=== PATIENT | female | born 1930 | race Caucasian/White ===

== ENCOUNTER 2016-06-30 17:14 | Inpatient (IN) | payer OTHER, MEDICARE ==
[~2016-06-30] VITALS: Ht 162.6 cm; Wt 54.0 kg
[~2016-06-30 17:14] MED LIST: ACEPHEN650 MG PR; ADVAIR DISKUS 21 DSK INH; ADVAIR DISKUS1 UNIT INH; ALBUTEROL SULFAT3 M1 INH; ALMACONE PO; ALPRAZOLAM0.25 MG PO; ALPRAZOLAM0.5 MG PO; AMITRIPTYLINE H50 MG PO; APAP325 MG PO; ATIVAN0.5 MG PO; AUGMENTIN 875 M1 TAB PO; AVELOX400 MG PO; BISACODYL10 MG PR; CALCITONIN NAS; CALCITONIN200 IU/Act PO; CALCIUM + D 6001 TAB PO; CITALOPRAM10 MG PO; CITALOPRAM20 MG PO; CLARITIN10 MG PO; CLOPIDOGREL75 MG PO; DOCUSATE SOD100 MG PO; DUONEB 3 MG/3 ML3 ML INH/SOL; FLEET ENEMA 131 UNIT RC; FLOVENT HF0.044 MG/A INH; FLU VACCINE 0.0.5 ML IM; FLUTICASON0.05 MG/A2 INH; HALDOL 5MG/ML5 MG/ML SC; IMODIUM2 MG PO; LEVOTHYROXIN0.025 M1 PO; LUMIGAN 2.5 ML2.5 M1 OPH; MASON NATURAL325 MG PO; MELATONIN3 MG PO; MILK OF MAGNESI30 ML PO; MORPHINE SUL20 MG/ML PO; MULTIVITAMIN1 TAB PO; PLAVIX 75MG TAB75 MG PO; PREDNISONE 5 MG5 MG PO; PREDNISONE10 MG PO; PREDNISONE5 MG PO; PROAIR HFA0.09 MG/Ac INH; PROTONIX 20MG T20 MG PO; RESOURCE 2.0 2237 ML PO; SENNA LAXATIVE8.6 MG PO; STIOLTO RESPIMA1 SPR INH; THEOPHYLLINE300 M2 PO; THEOPHYLLINE300 MG PO; TRUSOPT 2% OPH; TUDORZA PR400 MCG/Ac INH; VITAMIN D50000 IU PO; XALATAN 0.50 GTT/1 B OPH; ZITHROMAX 500M500 MG PO; [UNRECOGNIZED DRUG - OTHER] NAS
--- NOTE | 2016-06-30 17:24 | ED DYSPNEA/ASTHMA COMPLAINT ---
History of Present Illness General Chief Complaint: Dyspnea (COPD, CHF, Other) Stated Complaint: BIBA SOB Source: old records, EMS, W10 Exam Limitations: no limitations Vital Signs & Intake/Output Vital Signs & Intake/Output Vital Signs Date Time Temp Pulse Resp B/P Pulse O2 O2 Flow FiO2 Ox Delivery Rate 06/30 1756 93 Nasal 2.0L Cannula 06/30 1745 Nasal 2.0L Cannula 06/30 1740 99.6 86 26 132/58 93 Nasal 2.0L Cannula 06/30 1727 91 Nasal 2.0L Cannula Allergies Coded Allergies: aspirin (GI UPSET, NOSEBLEEDS 06/30/16) Reconcile Medications Acetaminophen (Apap) 325 MG TAB 650 MG PO Q4H PRN PAIN/TEMP/>100 (Reported) Acetaminophen (Acephen) 650 MG SUP 1 SUPP W[place] Q4H PRN PAIN/TEMP>/100 (Reported ) Albuterol Sulfate 3 ML NEB 3 ML INH BID COPD (Reported) Albuterol Sulfate/Ipratropiu (Duoneb) 3 MG/3 ML NEB 1 Vial INH/BERTHA Q6H PRN WHEEZE/SOB (Reported) AMOXICILLIN/POTASSIUM CLAV (Augmentin 875-125 Tablet) 875 MG/125 MG TAB 1 TAB PO BID Pneumonia Bisacodyl 10 MG SUP 1 SUPP WY PRN GI (Reported) Calcitonin (Enders) (Fortical) 200 IU/Actuation SPR 1 SPRAY JAE DAILY BONES ( Reported) Citalopram Hydrobromide (Citalopram HBr) 20 MG TAB 1 TAB PO AT BEDTIME depression Clopidogrel Bisulfate (Plavix) 75 MG TAB 1 TAB PO DAILY BLOOD THINNER ( Reported) Docusate Sodium 100 MG SGL 1 CAP PO BID GI (Reported) Dorzolamide HCl 2 % DROPS 1 GTT OPH BID EYE PRESSURE -RIGHT EYE (Reported) ERGOCALCIFEROL (VITAMIN D2) (Vitamin D2) 50,000 IU SGL 50,000 IU PO Q30D VITAMIN D SUPPLEMENT (Reported) Ferrous Sulfate 325 MG TAB 1 TAB PO EOD SUPPLEMENT (Reported) Fleet Enema (Fleet Enema 135 Ml) 1 UNIT LIQ 1 E RC DAILY PRN GI (Reported) FLUTICASONE/SALMETEROL (Advair 250-50 Diskus) 1 DSK DSK 1 PUFF INH BID COPD ( Reported) Latanoprost (Xalatan 0.005% 2.5 Ml) 50 GTT/1 BOT GTT 1 GTT OPH QHS GLAUCOMA ( Reported) Loperamide Hydrochloride (Imodium) 2 MG CAP 2 CAP PO AD PRN LOOSE STOOL ( Reported) Loratadine (Claritin) 10 MG TAB 1 TAB PO DAILY PRN ITCHING (Reported) Lorazepam (Ativan) 0.5 MG TAB 0.25 MG PO Q4H PRN AGITATION (Reported) MAG HYDROX/AL HYDROX/SIMETH (Almacone Liquid) 355 ML ENDER 30 ML PO Q8H PRN HEART BURN/GI PAIN (Reported) Magnesium Hydroxide (Milk Of Magnesia 30ML) 30 ML UDC 30 ML PO DAILY PRN CONSTIPATION (Reported) Melatonin 3 MG TAB 9 MG PO QHS SLEEP (Reported) Nutritional Supplement (Resource 2.0 237 Ml) (Unknown Strength) LIQ 60 ML PO TID AC SUPPLEMENT (Reported) Prednisone 5 MG TAB 0 PO TAPER COPD On Take 06/09 8 tabs 06/10-06/11 6 tabs 06/12-06/13 4 tabs 06/14-06/15 2 tabs Then continue taking 1 tab daily THEOPHYLLINE ANHYDROUS (Theophylline Anhydrous) [address] TAB PO DAILY COPD (Reported) TIOTROPIUM BR/OLODATEROL HCL (Stiolto Respimat Inhal [place]) 1 SPR SPR 2 PUFF INH DAILY COPD (Reported) Triage Nurses Notes Reviewed? yes HPI: Patient sent in from the [place] [facility] for increasing difficulty breathing, coughing and increasing lethargy. Positive anorexia but no nausea or vomiting. Positive chills but no documented fevers. Cough is productive. Patient denies any chest pain. Patient's daughter states that on Friday she was fully active and getting around in a wheelchair and today she can't even get out of bed. Past History Medical History Any Pertinent Medical History? 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 No Review of Systems Review of Systems Constitutional: Reports: see HPI, chills. EENTM: Reports: no symptoms. Respiratory: Reports: see HPI, cough, short of breath, sputum production. Cardiovascular: Reports: no symptoms. GI: Reports: no symptoms. Genitourinary: Reports: no symptoms. Musculoskeletal: Reports: no symptoms. Skin: Reports: no symptoms. Neurological/Psychological: Reports: no symptoms. Hematologic/Endocrine: Reports: no symptoms. Immunologic/Allergic: Reports: no symptoms. All Other Systems: Reviewed and Negative Physical Exam Physical Exam General Appearance: well developed/nourished, alert, awake, lethargic, moderate distress Head: atraumatic, normal appearance Eyes: Bilateral: PERRL, EOMI. Ears, Nose, Throat: normal pharynx, normal ENT inspection, hearing grossly normal Neck: normal inspection, supple, full range of motion, JVD Respiratory: decreased breath sounds, rhonchi, wheezing, respiratory distress Cardiovascular: regular rate/rhythm, normal peripheral pulses Gastrointestinal: normal bowel sounds, soft, non-tender, no organomegaly Extremities: normal inspection, normal capillary refill, normal range of motion, no edema Neurologic/Psych: no motor/sensory deficits, awake, alert, oriented x 3 Skin: intact, normal color Lymphatic: no anterior cervical lucia Core Measures ACS in differential dx? No Severe Sepsis Present: No Septic Shock Present: No Progress Differential Diagnosis: AMI, bronchitis, CHF, COPD, pulmonary embolism, pneumonia, pneumothorax Plan of Care: Orders Procedure Date/time Status LACTIC ACID 06/30 2019 Active ARTERIAL BLOOD GAS (GEN) 06/30 1854 Active Admit to inpatient 06/30 1852 Active Code Status 06/30 1803 Active CULTURE,URINE 06/30 1744 Active URINALYSIS 06/30 174 Complete Telemetry/Ops Manager 06/30 171 Active BLOOD CULTURE 06/30 171 Active TROPONIN LEVEL 06/30 171 Active LACTIC ACID 06/30 171 Active COMPREHENSIVE METABOLIC PANEL 06/30 1718 Active CBC WITHOUT DIFFERENTIAL 06/30 1718 Complete EKG 06/30 1713 Active Current Medications Sig/Teena Start time Last Medication Dose Stop Time Status Admin Albuterol Sulfate 3 ML ONCE ONE 06/30 1899 UNVr (Proventil) 06/30 190 Laboratory Tests 06/30/16 1826: Sodium Pending, Potassium Pending, Chloride Pending, Carbon Dioxide Pending, Anion Gap Pending, BUN Pending, Creatinine Pending, BUN/Creatinine Ratio Pending , Glucose Pending, Lactic Acid 1.3, Calcium Pending, Total Bilirubin Pending, AST Pending, ALT Pending, Alkaline Phosphatase Pending, Troponin I Pending, Total Protein Pending, Albumin Pending, Globulin Pending, Albumin/Globulin Ratio Pending 06/30/161748: Urine Color YEL, Urine Clarity CLDY H, Urine pH 6.5, Ur Specific [place] 1.025, Urine Protein 100 H, Urine Ketones NEG, Urine Nitrite POS H, Urine Bilirubin NEG, Urine Urobilinogen 0.2, Ur Leukocyte Esterase LARGE H, Ur Microscopic SEDIMENT EXAMINED, Urine WBC PACKD H, Urine Hemoglobin MOD H, Urine Glucose NEG 06/30/16 173: CBC w Diff NO MAN DIFF REQ, RBC 3.03 L, MCV 96.4, MCH 31.4 H, RDW 13.7, MPV 6.2 L, Gran % 93.2 H, Lymphocytes % 2.5 L, Monocytes % 4.0, Eosinophils % 0.3 , Basophils % 0 L, Absolute Granulocytes 11.1 H, Absolute Lymphocytes 0.3 L, Absolute Monocytes 0.5, Absolute Eosinophils 0, Absolute Basophils 0, PUBS MCHC 32.6 L 06/30/16 172: pH 7.36, pCO2 73 *H, pO2 58 L, HCO3 40 H, ABG O2 Sat (Measured) 88.0 L, P-50 (Temp Corrected) N, Carboxyhemoglobin 0.7 L, O2 Concentration % 2L, Temperature 98.9, O2 Delivery Method NC, Phlebotomy Draw Site LEFT RADIAL Microbiology 06/30 1748 URINE ROUT: Urine Culture - RECD 06/30 1739 BLOOD: Blood Culture - RECD 06/30 1734 BLOOD: Blood Culture - RECD Diagnostic Imaging: Viewed by Me: Radiology Read. Discussed w/RAD: Radiology Read. Radiology Impression: PATIENT: KOSTASOCTOBER PRESENT AGE: 86 PATIENT ACCOUNT NO: [id number] : [birth year] LOCATION: [facility] ORDERING PHYSICIAN: OMID KNOX MD SERVICE DATE: 06/30/16 EXAM TYPE: RAD - XRY-PORTABLE CHEST XRAY EXAMINATION: XR CHEST PORTABLE CLINICAL INFORMATION: An 86-year-old female with shortness of breath. COMPARISON: Chest done on 2015. TECHNIQUE: Portable AP view of the chest was obtained. FINDINGS: Persistent stable hyperinflated lung field and superimposed nodular nonspecific airspace disease predominantly at left lung base, appears similar to prior study. The remainder of the lung puga appear clear, unchanged. The cardiomediastinal silhouette is within normal limits. There is no pleural effusion present. Overall, no significant change. IMPRESSION: Hyperinflated lung field likely represent COPD/emphysematous disease with nonspecific somewhat nodular interstitial changes predominantly at left lung base, appears stable since 06/06/2015. DICTATED BY: ANTONY LEES MD DATE/TIME DICTATED:06/30/161827 GUARD RAIL INSTALLER:NATALI DATE/TIME TRANSCRIBED:06/30/161827 CONFIDENTIAL, DO NOT COPY WITHOUT APPROPRIATE AUTHORIZATION. <Electronically signed in Other Vendor System> SIGNED BY: ANTONY LEES MD 06/30/161838 Initial ED EKG: SR, IVCD, NSSTT CHANGES Prior EKG: unchanged Rhythm Strip: normal sinus rhythm Departure Departure Disposition: STILL A PATIENT Condition: Stable Clinical Impression Primary Impression: Sepsis due to urinary tract infection Secondary Impressions: COPD exacerbation Referrals: EUNICE TAYLOR,HUMAIRA Broussard (PCP/Family) Departure Forms: Customer Survey General Discharge Information Admission Note Spoke With: MAVERICK HALL MD Documentation of Exam: Documentation of any treatments & extenuating circumstances including Concerns Regarding Discharge (functional status, medication knowledge or non-compliance, living conditions, etc.) that warrant an admission rather than observation: [ Patient is a change from her baseline and is very lethargic. Patient is requiring IV antibiotics and IV fluids. Patient is requiring nebulizers and IV steroids for her COPD exacerbation. Patient will require telemetry monitoring for pulse ox monitoring.] Critical Care Note Critical Care Note Critical Care Time: mins: (45 MIN)
[2016-06-30 17:52] LABS: ABSOLUTE BASOPHIL COUNT 0 /CUMM (0.0-0.2); ABSOLUTE EOSINOPHIL COUNT 0 /CUMM (0.0-0.7); ABSOLUTE GRANULOCYTE CT 11.1 /CUMM (1.4-6.5); ABSOLUTE LYMPH COUNT 0.3 /CUMM (1.2-3.4); ABSOLUTE MONOCYTE COUNT 0.5 /CUMM (0.10-0.60); BASOPHIL % 0 % (0.0-2.0); EOSINOPHIL % 0.3 % (0-5); HEMATOCRIT 29.2 % (37-47); MEAN CORPUSCULAR HGB 31.4 PG (27.0-31.0); MEAN CORPUSCULAR HGB CONC 32.6 G/DL (33.0-37.0); MEAN CORPUSCULAR VOLUME 96.4 FL (81.0-99.0); MEAN PLATELET VOLUME 6.2 FL (7.4-10.4); PLATELET COUNT 305 /CUMM (130-400); RBC DISTRIBUTION WIDTH 13.7 % (11.5-14.5); RED BLOOD CELL CT 3.03 /CUMM (4.20-5.40); WHITE BLOOD CELL COUNT 11.9 /CUMM (4.8-10.8)
--- NOTE | 2016-06-30 17:53 | NUR ---
PT BIBA FROM [facility] FOR SOB. PT REPORTED TO STAFF SOB X WEEKS, STAFF TOLD EMS SOB X HOURS. PT ARRIVES WITH INCREASED WORK OF BREATHING, T[place], 93% ON BASELINE 2L NC OXYGEN. HISTORY OF COPD, LOBULAR PNA. PT ALSO NOTED TO HAVE WET COUGH, +WHEEZING. PT GIVEN 1 DUONEB EN ROUTE.
[2016-06-30 18:00] LABS: GRANULOCYTE % 93.2 % (42.2-75.2)
--- NOTE | 2016-06-30 18:39 | RADIOLOGY REPORT ---
EXAMINATION: XR CHEST PORTABLE CLINICAL INFORMATION: An 86-year-old female with shortness of breath. COMPARISON: Chest done on 06/06/2015. TECHNIQUE: Portable AP view of the chest was obtained. FINDINGS: Persistent stable hyperinflated lung field and superimposed nodular nonspecific airspace disease predominantly at left lung base, appears similar to prior study. The remainder of the lung puga appear clear, unchanged. The cardiomediastinal silhouette is within normal limits. There is no pleural effusion present. Overall, no significant change. IMPRESSION: Hyperinflated lung field likely represent COPD/emphysematous disease with nonspecific somewhat nodular interstitial changes predominantly at left lung base, appears stable since 06/06/2015.
--- NOTE | 2016-06-30 18:39 | NUR ---
PT MEDICATED PER EMAR AT THIS TIME.
--- NOTE | 2016-06-30 19:02 | NUR ---
RESP AT BEDSIDE FOR TREATMENT AT THIS TIME.
--- NOTE | 2016-06-30 19:07 | NUR ---
RECIEVED REPORT FROM KARYN MARQUES. ASSUMED PT CARE AT THIS TIME.
[2016-06-30] MEDS ORDERED: PAIN RELIEF650 MG PO (19:10)
[2016-06-30] MEDS ORDERED: ATIVAN0.5 M1 PO (19:10)
[2016-06-30] MEDS ORDERED: ATIVAN1 M1 PO (19:11)
[2016-06-30] MEDS ORDERED: CELEXA20 M1 PO (19:11)
[2016-06-30] MEDS ORDERED: NARCAN4 MG NAS (19:12)
[2016-06-30] MEDS ORDERED: GABAPENTIN100 M2 PO (19:13)
[2016-06-30] MEDS ORDERED: PREDNISONE5 M1 PO (19:14)
[2016-06-30] MEDS ORDERED: MELATONIN3 M4 PO (19:14)
[2016-06-30] MEDS ORDERED: SENNA8.6 M3 PO (19:15)
[2016-06-30] MEDS ORDERED: COLACE100 M1 PO (19:15)
[2016-06-30] MEDS ORDERED: BREO ELLIPTA 11 EACH INH (19:19)
[2016-06-30] MEDS ORDERED: SALINE NASAL SP30 ML NASB (19:20)
[2016-06-30] MEDS ORDERED: SPIRIVA18 MCG INH (19:20)
[2016-06-30] MEDS ORDERED: IPRAT-ALBUT 0.5-3 ML INH ×2 (19:21→19:28)
[2016-06-30] MEDS ORDERED: CALCITONIN-SAL3.7 ML NAS (19:22)
[2016-06-30] MEDS ORDERED: ACETAMINOPHEN325 M2 PO (19:23)
[2016-06-30] MEDS ORDERED: ACEPHEN650 M1 PR (19:23)
[2016-06-30] MEDS ORDERED: TRAMADOL HCL50 M1 PO (19:24)
[2016-06-30] MEDS ORDERED: DULCOLAX10 M1 RC (19:25)
[2016-06-30] MEDS ORDERED: FLEET ENEMA133 ML RC (19:26)
--- NOTE | 2016-06-30 19:26 | NUR ---
PT'S RM ASSIGNMENT 185 BED 2
[2016-06-30] MEDS ORDERED: MILK OF MA400 MG/52 PO (19:27)
[2016-06-30] MEDS ORDERED: ADULT TUSS100 MG/5 M PO (19:28)
[2016-06-30] MEDS ORDERED: TRANSDERM-SCOP1 EACH TOP (19:29)
[2016-06-30] MEDS ORDERED: TRUSOPT10 ML OD (19:33)
[2016-06-30] MEDS ORDERED: SYSTANE 0.3-0.415 ML OPH (19:38)
[2016-06-30] MEDS ORDERED: LUMIGAN2.5 ML OD (19:38)
--- NOTE | 2016-06-30 19:47 | NUR ---
REPORT GIVEN TO KARYN YE
--- NOTE | 2016-06-30 19:50 | NUR ---
[facility] CALLED FOR TRANSPORT
--- NOTE | 2016-06-30 19:54 | NUR ---
HOUSE STAFF AT BEDSIDE
--- NOTE | 2016-06-30 20:23 | History & Physical ---
FRANC TAYLOR,ROSAMARIA 06/30/162021: General Information and HPI MD Statement: I have seen and personally examined ELLY KENYON and documented this H&P. The patient is a 86 year old F who presented with a patient stated chief complaint of [cough and shortness of breath]. Source of Information: patient, family, old records Exam Limitations: no limitations History of Present Illness: This is an 86-year-old lady with a history of COPD with 2 L home oxygen dependence, ILD, tracheobronchomalacia, depression the lives at assisted living facility and presented to the emergency room the chief complaint of altered mental status, tactile fevers and cough as noted by ECF staff. Her daughter was present at bedside and did provide some of the history. Her daughter over the course of last 3-4 days her mom has been having increased dyspnea, her oxygen requirements have bumped up to 3.5 L whereas her baseline is about 2 L, her mother's roommate has been extremely ill with the "flu" and pneumonia and she noticed that her mom started to experience greenish sputum over the course of last couple of days. Today she was transferred to the ER after she was found to be hypoxic and altered. In the ER she received Mucomyst, IV Solu-Medrol, albuterol treatment with antibiotics with some improvement in her symptoms. At present she denies any chest pain, nausea, vomiting, diarrhea, chills, muscle aches or pains. Allergies/Medications Allergies: Coded Allergies: Penicillins (PER W-10 06/30/16) aspirin (GI UPSET, NOSEBLEEDS 06/30/16) Home Med list Acetaminophen (Pain Relief) 650 MG TABLET.ER 1 TAB PO TID BACK PAIN (Reported ) Acetaminophen (Acephen) 650 MG SUPP.RECT 1 SUPP LA Q4H PRN PAIN/TEMP>101 ( Reported) Acetaminophen 325 MG TABLET 2 TAB PO Q4H PRN PAIN/TEMP>101 (Reported) Bimatoprost (Lumigan) 0.01 % DROPS 1 GTT OD QPM RIGHT EYE (Reported) Bisacodyl (Dulcolax) 10 MG SUPP.RECT 1 SUP RC DAILY PRN CONSTIPATION ( Reported) Calcitonin,[place],Synthetic (Calcitonin-[place]) 200 UNIT/SPRAY SPRAY.PUMP 1 SPRAY JAE DAILY UNKNOWN (Reported) Citalopram Hydrobromide (Celexa) 20 MG TABLET 1 TAB PO QHS MENTAL HEALTH ( Reported) Docusate Sodium (Colace) 100 MG CAPSULE 1 CAP PO DAILY STOOL SOFTENER ( Reported) Dorzolamide HCl (Trusopt) 2 % DROPS 1 DROP OD BID RIGHT EYE (Reported) Fluticasone/Vilanterol (Breo Ellipta 100-25 Mcg INH) 100 MCG-25 MCG/DOSE BLST.W.DEV 1 PUF INH DAILY COPD (Reported) Gabapentin 100 MG CAPSULE 200 MG PO BID LEG SPASMS (Reported) Guaifenesin (Adult Tussin Chest Congestion) (Unknown Strength) LIQUID (Unknown Dose) PO Q6H PRN COUGH (Reported) Ipratropium/Albuterol Sulfate (Iprat-Albut 0.5-3(2.5) MG/3 Ml) 0.5 MG-3 MG (2.5 MG BASE)/3 ML AMPUL.NEB 1 VIAL INH BID COPD (Reported) Ipratropium/Albuterol Sulfate (Iprat-Albut 0.5-3(2.5) MG/3 Ml) 0.5 MG-3 MG (2.5 MG BASE)/3 ML AMPUL.NEB 1 VIAL INH Q4H PRN WHEEZE/SOB RESP. DISTRESS ( Reported) Lorazepam (Ativan) 0.5 MG TABLET 1 TAB PO BID ANXIETY (Reported) Lorazepam (Ativan) 1 MG TABLET 1 TAB PO QHS ANXIETY (Reported) Magnesium Hydroxide (Milk Of Magnesia) 400 MG/5 ML ORAL.SUSP 30 ML PO Q3D PRN CONSTIPATION (Reported) Melatonin 3 MG TABLET 9 MG PO QPM SLEEP (Reported) Na Phos,M-B/Na Phos,Di-Ba (Fleet Enema) 19 GRAM-7 GRAM/118 ML ENEMA 1 E RC DAILY PRN CONSTIPATION (Reported) Naloxone HCl (Narcan) 4 MG/ACTUATION SPRAY 4 MG JAE AD PRN OPIOID INDUCED RESP. DEPRESSIO (Reported) Prednisone 5 MG TABLET 1 TAB PO DAILY STEROID (Reported) Propylene Glycol/Peg 400 (Systane 0.3-0.4% Eye Drops) (Unknown Strength) DROPS (Unknown Dose) OPH TID BOTH EYES (Reported) Scopolamine Hydrobromide (Transderm-Scop) 1.5MG/3DAY PATCH.TD.3 1 PAT TOP Q3D PRN ORAL SECRETIONS (Reported) apply to the hairless area behind 1 ear at least 4 hours before effect is required; reapply every 3 days as needed Sennosides (Senna) 8.6 MG TABLET 2 TAB PO DAILY GI (Reported) Sodium Chloride (Saline Nasal [place]) 0.65 % SPRAY 1 SPRAY NASB BID NASAL CONGESTION (Reported) Tiotropium [place] (Spiriva) 18 MCG CAP.W.DEV 1 CAP INH DAILY COPD (Reported) Tramadol HCl 50 MG TABLET 25 MG PO Q6H PRN PAIN UNRELIEVED BY APAP (Reported) Past History Travel History Traveled to [place] past 21 day No Medical History Neurological: TIA EENT: cataracts, 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 Cardiovascular: NONE Respiratory: COPD, emphysema Gastrointestinal: GERD Hepatic: NONE Renal: NONE Musculoskeletal: fracture, osteoarthritis Psychiatric: anxiety, depression Endocrine: diabetes, hypothyroidism Blood Disorders: NONE Cancer(s): colon/rectal cancer INSTRUMENT MECHANIC/Reproductive: NONE History of MRSA: No History of VRE: No History of CDIFF: No Pneumonia Vaccine: 12/03/04 Influenza Vaccine: 03/09/15 Tetanus Vaccine: 10/15/13 Surgical History Surgical History: colon resection, hysterectomy, TONSILLECTOMY ECHO Results (as available) Date of last Echo 11/16/14 EF% 65 Past Family/Social History Family History Relations & Conditions if any MOTHER FH: diabetes mellitus Psychosocial History Services at Home: Home Health Aide, Nursing ETOH Use: denies use Illicit Drug Use: denies illicit drug use Living Will? yes Power of Planetarium Technician/HCP? yes Name of POA/HCP: daughter Functional Ability ADLs Needs Assist: dressing, eating, toileting, bathing. Ambulation: non-ambulatory IADLs Needs Assist: shopping, housework, finances, food prep, telephone, transportation, medication admin. Review of Systems Review of Systems Constitutional: Reports: see HPI. Exam & Diagnostic Data Last 24 Hrs of Vital Signs/I&O Vital Signs Date Time Temp Pulse Resp B/P Pulse O2 O2 Flow FiO2 Ox Delivery Rate 06/30 1855 Nasal 2.0L Cannula 06/30 1756 93 Nasal 2.0L Cannula 06/30 1745 Nasal 2.0L Cannula 06/30 174 99.6 86 26 132/58 93 Nasal 2.0L Cannula 06/30 1727 91 Nasal 2.0L Cannula Physical Exam General Appearance Alert, Oriented X3, Cooperative, Mild Distress Skin skin tear on right lateral calf with clean dry dressing HEENT PERRLA, EOMI, 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 Cardiovascular Regular Rate, Normal S1, Normal S2 Lungs b/l ronchii Abdomen Normal Bowel Sounds, Soft, No Tenderness Neurological Normal Speech, Strength at 5/5 X4 Ext, Normal Tone, Sensation Intact, Cranial Nerves 3-12 NL Extremities No Clubbing, No Cyanosis, No Edema Last 24 Hrs of Labs/[place]: Laboratory Tests 06/30/16 1826: Anion Gap 5, Estimated GFR > 60, BUN/Creatinine Ratio 25.0, Glucose 142 H, Lactic Acid 1.3, Calcium 9.5, Total Bilirubin 0.4, AST 20, ALT 27, Alkaline Phosphatase 75, Troponin I 0.02, Total Protein 6.3, Albumin 3.4 L, Globulin 2.9 , Albumin/Globulin Ratio 1.2 06/30/161748: Urine Color YEL, Urine Clarity CLDY H, Urine pH 6.5, Ur Specific [place] 1.025, Urine Protein 100 H, Urine Ketones NEG, Urine Nitrite POS H, Urine Bilirubin NEG, Urine Urobilinogen 0.2, Ur Leukocyte Esterase LARGE H, Ur Microscopic SEDIMENT EXAMINED, Urine WBC PACKD H, Urine Hemoglobin MOD H, Urine Glucose NEG 06/30/161734: CBC w Diff NO MAN DIFF REQ, RBC 3.03 L, MCV 96.4, MCH 31.4 H, RDW 13.7, MPV 6.2 L, Gran % 93.2 H, Lymphocytes % 2.5 L, Monocytes % 4.0, Eosinophils % 0.3 , Basophils % 0 L, Absolute Granulocytes 11.1 H, Absolute Lymphocytes 0.3 L, Absolute Monocytes 0.5, Absolute Eosinophils 0, Absolute Basophils 0, PUBS MCHC 32.6 L 06/30/16 172: pH 7.36, pCO2 73 *H, pO2 58 L, HCO3 40 H, ABG O2 Sat (Measured) 88.0 L, P-50 (Temp Corrected) N, Carboxyhemoglobin 0.7 L, O2 Concentration % 2L, Temperature 98.9, O2 Delivery Method NC, Phlebotomy Draw Site LEFT RADIAL Microbiology 06/30 1748 URINE ROUT: Urine Culture - RECD 06/30 1739 BLOOD: Blood Culture - RECD 02/26 1735 BLOOD: Blood Culture - RECD Diagnostic Data EKG Results Rate 94, LA 136, QRS 72, QTC 41 Sinus rhythm CXR Results IMPRESSION: Hyperinflated lung field likely represent COPD/emphysematous disease with nonspecific somewhat nodular interstitial changes predominantly at left lung base, appears stable since 06/06/2015. Assessment/Plan Assessment: Assessment- 1. Acute on chronic hypercarbic respiratory failure 2. COPD exacerbation 3. Likely healthcare associated pneumonia, she lives in a long term 4. Urinary tract infection 5. Leukocytosis with left shift, no bands 6. Hyperkalemia 7. Protein calorie malnutrition 8. Chronic anemia 9. Right lateral calf ulcer in dry sterile dressing Plan- Telemetry admit for continuous pulse ox Vitals per protocol Strict I's and O's, daily weight TRC evaluation, total pulmonary toilet Min culture; blood cultures, urine strep and Legionella antigen, urine culture, sputum culture IV antibiotics with vancomycin and ceftazidime to coverage IV Solu-Medrol 40 mg every 8 hrs Placed on BiPAP, repeat ABG in 2 hours IV fluids normal saline 100 mL/h for one bag Wound care in the morning Repeat labs in the morning Continue home meds Pain pathway DVT prophylaxis with subcutaneous heparin DNR/DNI As Ranked By This Provider Problem List: 1. Fever 2. Community acquired bacterial pneumonia 3. Hypercapnic respiratory failure, chronic 4. COPD (chronic obstructive pulmonary disease) 5. Hypothyroidism Core Measures/Miscellaneous Acute Coronary Syndrome ACS Diagnosis: No Cerebrovascular Accident CVA/TIA Diagnosis: No Congestive Heart Failure CHF Diagnosis: No Venous Thromboembolism VTE Risk Factors: Age > 40, Smoking VTE Prophylaxis [facility]dered Inpt: [facility] d/t: No contraindications No VTE Pharm Prophylaxis d/t: No contraindications VTE Diagnosis: No VTE Type: NONE VTE Confirmed by (Test): NONE Severe Sepsis Severe Sepsis Present: No Septic Shock Septic Shock Present: No Miscellaneous Documentation Attending Case Discussed With: MAVERICK HALL MD Primary Care Physician: HUMAIRA DAWSNO MD Patient sees these Specialists none Level of Patient Care: Telemetry Resident Review Statement Resident Statement: examined this patient, discussed with internal grinding machine operator MAVERICK HALL 07/01/16 0124: Attending MD Review Statement Attending Statement Attending MD Statement: examined this patient, discuss w/resident/PA/ION IMPLANT MACHINE OPERATOR, agreed w/resident/PA/ION IMPLANT MACHINE OPERATOR, reviewed EMR data (avail), reviewed images, amended to note Attending Assessment/Plan: CC: cough, lethargy, increased oxygen requirement PMH: COPD on 2 L NC, ILD, bronchiectasis, history of rectal cancer S/P ejection, depression, osteoporosis, ex-smoker Patient was sent to ER from [facility] ([facility] for increasing difficulty breathing, coughing and increasing lethargy. History is obtained from charts and daughter. According to the daughter patient had increased O2 requirements at facility, but productive cough, roommate is sick. History is positive anorexia, chills but no nausea or vomiting, no documented fever, no chest pain. Patient is progressively getting lethargic and was not getting of bed much today Vitals: T max 99.6, no tachycardia, RR 24, BP at presentation 132/58, saturating 91% on 2 L. On examination: patient sleepy, only answers yes or no, not comprehensible, not oriented, follows instructions, cachectic. No JVD, no cervical lymphadenopathy, mucosa dry. RS: Bronchospasm CVS: S1-S2, RRR. Abdomen: Soft, 90, 90, bowel sounds present. No pedal edema, superficial skin breakdowns without infections especially on lower extremities. Labs: WBC 11.9, hemoglobin 9.5, granulocytes 93%, potassium 5.4, chloride 88, bicarbonate 45, glucose 142, lactate 1.3, LFT unremarkable, UA positive for nitrites and leukocyte esterase ABG: At presentation 7.36/73/58/40 on 2 L NC repeat after 3 hr 7.33/80/80/42 on 2 L NC CXR: Hyperinflated lung field secondary to COPD emphysematous changes somewhat nodular interstitial changes on the left base stable since 06/06/2015. A and P #1 acute on chronic respiratory failure: Hypercapnic, hypoxic. Secondary to COPD exacerbation, interstitial lung disease. Underlying pneumonia cannot be excluded , patient has significant leukocytosis with neutrophilia, low-grade fever, productive cough. Get blood culture, sputum culture. Flu test negative. As patient is from [facility], and when offered roommates is sick, for now covered with broad-spectrum antibiotics with vancomycin and ceftazidime, IV methylprednisolone 40 mg every 8 hours, TRC nebulization with albuterol and ipratropium scheduled and when necessary, patient will need BiPAP assistance given hypercapnic failure. Repeat ABG to our after BiPAP was started to titrate the settings. Continue hydration at 100-150 mL ns per hr, trend lactate, repeat CBCs in a.m., pulmonary consult in a.m. Patient's critical condition is discussed with patient's daughter, patient is DNR, DNI. #2 evidence of UTI on UA, even though patient denied symptoms, patient has altered mental status, leukocytosis. Given elderly and in ECF, would treat this infection but patient is already on antibiotics for her pulmonary issues which will cover UTI, gait urine culture. #3 continue her Celexa, hold Ativan and gabapentin. Check hemoglobin A1c, patient is on chronic prednisone, and that sugar is mildly elevated. #4 heparin for DVT prophylaxis #5 mild hyperkalemia : Repeat BMP in a.m. #6 wound consult in a.m.
[2016-06-30 20:29] VITALS: BP 114/56
--- NOTE | 2016-06-30 23:41 | Event Note ---
Event Note Event Note: Recent ABG shows a pH 7.33, PCO2 80, PO2 80, bicarbonate 42, O2 sat 95%. Discussed the case with the manufacturing industrial engineer, Dr. Fletcher. He recommends no Diamox for now. He recommended BIPAP 14/6. I spoke with patient's Daugther Marjan. Explained to her the benefits of BIPAP and risks include but are not limited to aspiration, dry oral mucosa. Since her mother is DNR/DNI, she is ok with BIPAP for now. Will start the patient on BIPAP 14/6 as recommended by Pulmonary and then recheck an ABG in 2 hours.
[2016-07-01 00:42] VITALS: BP 98/48
--- NOTE | 2016-07-01 01:26 | Admission Certification ---
Admission Certification Certification Statement - As attending physician, I certify that at the time of - admission, based on clinical presentation, severity of - symptoms, need for further diagnostic testing and - therapeutic interventions, and risk of adverse outcomes - without in-hospital treatment, in my clinical assessment, - this patient requires an acute hospital stay for a minimum - of two nights or longer. I have also considered psychsocial - factors such as support system, advanced age, financial - issues, cognitive issues, and failed out-patient treatments, - past re-admission history, safety of patient, and lack of - compliance as applicable. Specific rationale supporting this admission is: Acute on chronic hypercapnic respiratory failure
--- NOTE | 2016-07-01 06:36 | PN- Housestaff ---
CHELO TAYLOR,CARMELO 07/01/16 0636: Subjective Follow-up For: acute on chronic hypercapenic hypoxic resp failure Tele-Events Since Last Visit: SB-SR 55-69 PVCs Subjective: pt was seen and examined this morning, she was still on bipap and was alert and responding appropriately to questions. She does not feel much better despite being on the bipap. other than she shortness of breath, cough with sputum production, ROS negative including dysuria. Hypercarbia and hypoxic has improved on the bipap although not at her baseline yet. She wants to have the bipap removed, but I convinced her to keep it until further evaluation by Dr. Jewell. Her O2 sat currently in the 90s. Review of Systems Constitutional: Denies: chills, fever. EENTM: Denies: visual changes. Cardiovascular: Denies: chest pain. Respiratory: Reports: cough, short of breath. Gastrointestinal: Denies: abdominal pain. Genitourinary: Denies: dysuria. Objective Last 24 Hrs of Vital Signs/I&O Vital Signs Date Time Temp Pulse Resp B/P Pulse O2 O2 Flow FiO2 Ox Delivery Rate 07/01 0610 81 94 07/01 0257 77 93 07/01 0042 97.3 87 24 98/48 87 BIPAP 07/01 0022 Nasal 2.0L Cannula 07/01 0005 63 87 07/01 0000 94 BIPAP 35% 06/30 2344 68 06/30 2036 93 Nasal 2.5L Cannula 06/30 2028 98.5 90 24 114/56 91 Nasal 4.0L Cannula 06/30 1855 Nasal 2.0L Cannula 06/30 1756 93 Nasal 2.0L Cannula 06/30 1745 Nasal 2.0L Cannula 06/30 1740 99.6 86 26 132/58 93 Nasal 2.0L Cannula 06/30 1727 91 Nasal 2.0L Cannula Intake & Output 07/01 1600 07/01 0800 07/01 0000 Intake Total 600 400 Output Total Balance 600 400 Intake, IV 600 400 Intake, Oral 0 0 Patient 53.977 kg Weight Physical Exam General Appearance: Alert, Oriented X3, Cooperative, Mild Distress Skin: chronic skin changes on both lower extremities. small ulcer on right leg currently covered in sterile dressing HEENT: Atraumatic, left eye droop (chronic) left eye blind Cardiovascular: Regular Rate, Normal S1, Normal S2, No Murmurs Lungs: grunting breath sounds Abdomen: Normal Bowel Sounds, Soft, No Tenderness Assessment/Plan Assessment: 86-year-old lady with a history of COPD with 2 L home O2, ILD, tracheobronchomalacia, depression, resident of [facility] for CC of altered mental status, tactile fevers, hypoxia, increased dyspnea, cough productive of green sputum increased O2 requirement to 3.5L, + flu contact. She was admitted to telemetry for continuous pulse ox monitoring, and treated for acute on chronic hypercapneic and hypoxic respiratoryu failure due to COPD exacerbation and possible healthcare acquired pneumonia. Flu was negative. She was started on bipap. Problem list: # Acute on chronic hypercarbic and hypoxic respiratory failure most likely due to COPD exacerbation and possible HCAP # Acute substernal chest pain in the settings of respiratory distress could be suggestive of demand ischemia # AMS improved # Urinary tract infection? # Mild Hyperkalemia (K 5.4) # Protein calorie malnutrition # Chronic anemia # Right calf ulcer in dry sterile dressing # Acute on chronic hypercarbic and hypoxic respiratory failure most likely due to COPD exacerbation and possible HCAP (concerns of gram negative & MRSA pneumonia, previous MSSA) - CXR: Hyperinflated lung field secondary to COPD emphysematous changes somewhat nodular interstitial changes on the left base stable since 06/06/2015. - Leukocytosis (11.9) with left shift, no bands - ABG admission : 7.36/73H/58L/40H - ABG on BIPAP : 7.40/62H/70L/38H - AMS on admission, now improved * Follow Min culture; blood cultures, urine strep and Legionella antigen, sputum culture * IV antibiotics with vancomycin and ceftazidime day # 1. DC vanco after 1 dose. Continue ceftazidime. * IV Solu-Medrol 40 mg every 8 hrs, change to q12 tomorrow * Diamox X 1 * Continue on BiPAP, passed bedside swallow jason (refused formal eval because she was on bipap earlier), diet advancd to CC2 * Ativan 1 mg at bedtime, 0.5 mg at 9am and 1pm. HOLD IF DROWSY. * Telemetry admit for continuous pulse ox * TRC evaluation, total pulmonary toilet * Pulm consult with Dr. Jewell placed * Await formal swallow eval to advance diet. Pt currently NPO. received IVF 1 bag at 75ml/hr. * Continue albuterol. Hold spiriva. # Acute substernal chest pain in the settings of respiratory distress could be suggestive of demand ischemia * Follow up troponin 1pm. Follow up second set of troponin and EKG at 700pm, 3rd set at 1am * Follow up Dr. Pastrana recommendation * Repeat echocardiogram. Follow up results * Nitropaste 0.5 X 1 * 1mg morphine IV q6prn difficulty breathing * Omeprazole 40 mg daily # UTI on UA but pt asymptomatic * Follow Urine culture * Already on abx for HCAP that would adequately cover UTI # Right calf ulcer in dry sterile dressing * Would place wound consult # DM * novolog ss tidac/qhs * Follow hba1c # Continue home meds * Celexa * Ativan and gabapentin Diet: CC2 DVT ppx: SC heparin DNR/DNI Problem List: 1. Acute on chronic respiratory failure with hypoxia and hypercapnia 2. Gram-negative pneumonia Pain Ratin Pain Location: none Pain Goal: Remain pain free Pain Plan: mild pp Tomorrow's Labs & Rationales: bep for hyperkalemia cbc for leukocytosis DVT/Prophylaxis: pharmacological ANUSHKA GOOD MD 07/01/16 1417: Attending MD Review Statement Attending Statement Attending MD Statement: examined this patient, discuss w/resident/PA/LANDSCAPE AND YARDWORK LABORER, agreed w/resident/PA/LANDSCAPE AND YARDWORK LABORER, reviewed EMR data (avail), discussed with nursing, discussed with case mgmt, amended to note Attending Assessment/Plan: Patient seen and examined. Sitting up in bed on BiPAP therapy. Patient groans on and off however when questioned she denies any distress. She did complain of chest pain earlier on and Nitropaste was applied. When reevaluated she reported improvement of the chest pain. Gen. appearance: Elderly lady. On BiPAP therapy. Neck: Supple, no jugular venous distention Heart: S1-S2 regular Lungs: Diffuse expiratory wheezing Abdomen: Soft, nontender with normal bowel sounds Extremities: 1+ pedal edema bilaterally. Skin: Diffuse ecchymotic areas on her upper and lower extremities. Problems: 1. Acute hypercapnic respiratory failure 2. Advanced COPD with a suspicion. 3. Interstitial lung disease 4. Chest pain 5. Hyperkalemia 6. Chronic anemia 7. Anxiety disorder on benzodiazepine therapy 8. Right calf ulcer Plan: -Continue ventilatory she support with BiPAP therapy. -Patient has no history of MRSA infection would discontinue vancomycin and continue ceftaz to cover for possible gram-negative pneumonia. -Follow-up sputum cultures and tailor antibiotic therapy appropriately. -Continue bronchodilator therapy with albuterol every 6 hours. Follow the recommendations of the pulmonary service. -Begin patient on low-dose dose of diazepam therapy with Ativan 0.25 mg IV twice daily as needed for anxiety. Hold if drowsy. -Apply nitroglycerin paste to the chest wall or her chest pain. Follow-up serial cardiac enzymes and continue route supervisor. -Wound care consultation appreciated.
[2016-07-01 08:00] VITALS: BP 110/60
[2016-07-01 08:29] LABS: ABSOLUTE BASOPHIL COUNT 0 /CUMM (0.0-0.2); ABSOLUTE EOSINOPHIL COUNT 0 /CUMM (0.0-0.7); ABSOLUTE GRANULOCYTE CT 8.9 /CUMM (1.4-6.5); ABSOLUTE LYMPH COUNT 0.2 /CUMM (1.2-3.4); ABSOLUTE MONOCYTE COUNT 0 /CUMM (0.10-0.60); BASOPHIL % 0 % (0.0-2.0); EOSINOPHIL % 0 % (0-5); GRANULOCYTE % 97.5 % (42.2-75.2); HEMATOCRIT 27.8 % (37-47); MEAN CORPUSCULAR HGB 31.9 PG (27.0-31.0); MEAN CORPUSCULAR VOLUME 96.6 FL (81.0-99.0); MEAN PLATELET VOLUME 6.4 FL (7.4-10.4); PLATELET COUNT 272 /CUMM (130-400); RBC DISTRIBUTION WIDTH 13.5 % (11.5-14.5); RED BLOOD CELL CT 2.88 /CUMM (4.20-5.40)
--- NOTE | 2016-07-01 09:16 | Cons- Wound Care ---
General Information and HPI Consulting Request Date of Consult: 07/01/16 Requested By: MAVERICK HALL MD Reason for Consult: Bilateral lower extremity ulcers present on admission left arm skin tear present on admission History of Present Illness: Patient is on BiPAP extreme short of breath history is provided by her daughter. She's been a jail and has multiple lower extremity wound secondary to trauma and a left upper lateral arm skin tear present on admission. She is unaware of any comp getting peripheral vascular disease. Patient is on chronic Plavix Allergies/Medications Allergies: Coded Allergies: Penicillins (PER W-10 06/30/16) aspirin (GI UPSET, NOSEBLEEDS 06/30/16) Home Med List: Acetaminophen (Pain Relief) 650 MG TABLET.ER 1 TAB PO TID BACK PAIN (Reported ) Acetaminophen (Acephen) 650 MG SUPP.RECT 1 SUPP SD Q4H PRN PAIN/TEMP>101 ( Reported) Acetaminophen 325 MG TABLET 2 TAB PO Q4H PRN PAIN/TEMP>101 (Reported) Bimatoprost (Lumigan) 0.01 % DROPS 1 GTT OD QPM RIGHT EYE (Reported) Bisacodyl (Dulcolax) 10 MG SUPP.RECT 1 SUP RC DAILY PRN CONSTIPATION ( Reported) Calcitonin,[place],Synthetic (Calcitonin-[place]) 200 UNIT/SPRAY SPRAY.PUMP 1 SPRAY JAE DAILY UNKNOWN (Reported) Citalopram Hydrobromide (Celexa) 20 MG TABLET 1 TAB PO QHS MENTAL HEALTH ( Reported) Docusate Sodium (Colace) 100 MG CAPSULE 1 CAP PO DAILY STOOL SOFTENER ( Reported) Dorzolamide HCl (Trusopt) 2 % DROPS 1 DROP OD BID RIGHT EYE (Reported) Fluticasone/Vilanterol (Breo Ellipta 100-25 Mcg INH) 100 MCG-25 MCG/DOSE BLST.W.DEV 1 PUF INH DAILY COPD (Reported) Gabapentin 100 MG CAPSULE 200 MG PO BID LEG SPASMS (Reported) Guaifenesin (Adult Tussin Chest Congestion) (Unknown Strength) LIQUID (Unknown Dose) PO Q6H PRN COUGH (Reported) Ipratropium/Albuterol Sulfate (Iprat-Albut 0.5-3(2.5) MG/3 Ml) 0.5 MG-3 MG (2.5 MG BASE)/3 ML AMPUL.NEB 1 VIAL INH BID COPD (Reported) Ipratropium/Albuterol Sulfate (Iprat-Albut 0.5-3(2.5) MG/3 Ml) 0.5 MG-3 MG (2.5 MG BASE)/3 ML AMPUL.NEB 1 VIAL INH Q4H PRN WHEEZE/SOB RESP. DISTRESS ( Reported) Lorazepam (Ativan) 0.5 MG TABLET 1 TAB PO BID ANXIETY (Reported) Lorazepam (Ativan) 1 MG TABLET 1 TAB PO QHS ANXIETY (Reported) Magnesium Hydroxide (Milk Of Magnesia) 400 MG/5 ML ORAL.SUSP 30 ML PO Q3D PRN CONSTIPATION (Reported) Melatonin 3 MG TABLET 9 MG PO QPM SLEEP (Reported) Na Phos,M-B/Na Phos,Di-Ba (Fleet Enema) 19 GRAM-7 GRAM/118 ML ENEMA 1 E RC DAILY PRN CONSTIPATION (Reported) Naloxone HCl (Narcan) 4 MG/ACTUATION SPRAY 4 MG JAE AD PRN OPIOID INDUCED RESP. DEPRESSIO (Reported) Prednisone 5 MG TABLET 1 TAB PO DAILY STEROID (Reported) Propylene Glycol/Peg 400 (Systane 0.3-0.4% Eye Drops) (Unknown Strength) DROPS (Unknown Dose) OPH TID BOTH EYES (Reported) Scopolamine Hydrobromide (Transderm-Scop) 1.5MG/3DAY PATCH.TD.3 1 PAT TOP Q3D PRN ORAL SECRETIONS (Reported) apply to the hairless area behind 1 ear at least 4 hours before effect is required; reapply every 3 days as needed Sennosides (Senna) 8.6 MG TABLET 2 TAB PO DAILY GI (Reported) Sodium Chloride (Saline Nasal [place]) 0.65 % SPRAY 1 SPRAY NASB BID NASAL CONGESTION (Reported) Tiotropium [place] (Spiriva) 18 MCG CAP.W.DEV 1 CAP INH DAILY COPD (Reported) Tramadol HCl 50 MG TABLET 25 MG PO Q6H PRN PAIN UNRELIEVED BY APAP (Reported) Review of Systems Review of Systems: Unobtainable Past History Travel History Traveled to [place] past 21 day No Medical History Blood Transfusion Hx: No Neurological: TIA EENT: cataracts, 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 Long Term Facility Services at Home: Home Health Aide, Nursing Smoking Status: Former Smoker ETOH Use: denies use Illicit Drug Use: denies illicit drug use Living Will? yes Power of Peoplesoft Analyst/HCP? yes Name of POA/HCP: daughter Functional Ability ADLs Needs Assist: dressing, eating, toileting, bathing. Ambulation: non-ambulatory IADLs Needs Assist: shopping, housework, finances, food prep, telephone, transportation, medication admin. ECHO Results (as available) Date of last Echo 11/16/14 EF% 65 Exam & Diagnostic Data Vital Signs and I&O Vital Signs Result Date Time Pulse Ox 94 07/01 0800 O2 Delivery BIPAP 07/01 08 O2 Flow Rate 35% 07/01 0800 B/P 110/60 07/01 0800 Temp 97.0 07/01 0800 Pulse 89 07/01 0800 Resp 24 07/01 0800 Intake & Output 07/01 0000 06/30 1600 06/30 0800 Intake Total 400 Output Total Balance 400 Intake, IV 400 Intake, Oral 0 Patient 119 lb Weight Over the right leg shows there to be a small 1 x 0.6 cm ulcer which is partially healed over the left leg is approximately 1.3 x 1.2 cm ulcer with red fill 100 her feet are cold distal pulses are difficult to palpate if not absent over the left lateral upper arm is a skin tear approximately 2.5 x 1.5 cm with a intact flap Assessment/Plan Impression/Plan: 86-year-old woman with severe chronic hypercapnic history failure admitted with increasing shortness of breath now on BiPAP. Patient is to small lower extremity wounds likely traumatic and a left arm skin tear. Recommend placement of a Steri-Strip over this skin tear to maintain proper orientation of the flap and cover with Xeroform change daily. Lower extremity ulcers can be cleansed daily and covered with Xeroform. Consult Acknowledgment - Thank you for your consult request.
[2016-07-01 09:59] LABS: WHITE BLOOD CELL COUNT 9.1 /CUMM (4.8-10.8)
--- NOTE | 2016-07-01 13:26 | Event Note ---
Event Note Event Note: Pt was complaining of 4/10 substernal chest pain, that started around 110pm. She has been in respiratory distress despite being on bipap, and noticably anxious. EKG was done and did not show acute ST and T wave changes. troponin drawn. Last echo was done in November 2014 and showed EF > 65% with stage 1 diastolic dysfunction. 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 I called cardiology, Dr. Pastrana to consult on the patient. Assessment: Acute substernal chest pain in the settings of respiratory distress could be suggestive of demand ischemia Plan: Follow up troponin 1pm Follow up second set of troponin and EKG at 700pm, 3rd set at 1am Follow up Dr. Pastrana recommendation Repeat echocardiogram. Follow up results Nitropaste 0.5 X 1 Consider IV ativan for anxiety (pt alert and in distress about her breathing)
--- NOTE | 2016-07-01 13:30 | NUR ---
PATIENT REPORTED PAIN 7/10 TO LEFT CHEST WALL. VITAL SIGN ASSESSED. BP 170/67. HR 83, RR 26, O2 SAT ON BIPAP 95%. PATIENT ANXIOUS. DR WHITNEY AWARE. STAT EKG ORDERED AND DONE. TROPONIN ORDERED AND DONE. 0.5MG OF NITRO PASTE ORDERED AND APPLIED TO LEFT CHEST WALL. DAUGHTER AT BEDSIDE. WILL CONTINUE TO MONITOR.
--- NOTE | 2016-07-01 13:42 | Cons- Pulmonary ---
General Information and HPI Consulting Request Date of Consult: 07/01/16 Requested By: med team History of Present Illness: This is an 86-year-old lady with a history of COPD with 2 L home oxygen dependence, ILD, tracheobronchomalacia, depression the lives at assisted living facility and presented to the emergency room the chief complaint of altered mental status, tactile fevers and cough as noted by ECF staff. Pt has been having increased dyspnea, her oxygen requirements have bumped up to 3.5 L whereas her baseline is about 2 L, her mother's roommate has been extremely ill with the "flu" and pneumonia and she noticed that her mom started to experience greenish sputum over the course of last couple of days. yesterday she was transferred to the ER after she was found to be hypoxic and altered. In the ER she received Mucomyst, IV Solu-Medrol, albuterol treatment with antibiotics with some improvement in her symptoms. At present she denies any chest pain, nausea, vomiting, diarrhea, chills, muscle aches or pains. Since she came in she's been having significant wheezing coughing and has required noninvasive ventilator. She also has been having on and off chest discomfort. Allergies/Medications Allergies: Coded Allergies: Penicillins (PER W-10 06/30/16) aspirin (GI UPSET, NOSEBLEEDS 06/30/16) Home Med List: Acetaminophen (Pain Relief) 650 MG TABLET.ER 1 TAB PO TID BACK PAIN (Reported ) Acetaminophen (Acephen) 650 MG SUPP.RECT 1 SUPP [place] Q4H PRN PAIN/TEMP>101 ( Reported) Acetaminophen 325 MG TABLET 2 TAB PO Q4H PRN PAIN/TEMP>101 (Reported) Bimatoprost (Lumigan) 0.01 % DROPS 1 GTT OD QPM RIGHT EYE (Reported) Bisacodyl (Dulcolax) 10 MG SUPP.RECT 1 SUP RC DAILY PRN CONSTIPATION ( Reported) Calcitonin,[place],Synthetic (Calcitonin-[place]) 200 UNIT/SPRAY SPRAY.PUMP 1 SPRAY JAE DAILY UNKNOWN (Reported) Citalopram Hydrobromide (Celexa) 20 MG TABLET 1 TAB PO QHS MENTAL HEALTH ( Reported) Docusate Sodium (Colace) 100 MG CAPSULE 1 CAP PO DAILY STOOL SOFTENER ( Reported) Dorzolamide HCl (Trusopt) 2 % DROPS 1 DROP OD BID RIGHT EYE (Reported) Fluticasone/Vilanterol (Breo Ellipta 100-25 Mcg INH) 100 MCG-25 MCG/DOSE BLST.W.DEV 1 PUF INH DAILY COPD (Reported) Gabapentin 100 MG CAPSULE 200 MG PO BID LEG SPASMS (Reported) Guaifenesin (Adult Tussin Chest Congestion) (Unknown Strength) LIQUID (Unknown Dose) PO Q6H PRN COUGH (Reported) Ipratropium/Albuterol Sulfate (Iprat-Albut 0.5-3(2.5) MG/3 Ml) 0.5 MG-3 MG (2.5 MG BASE)/3 ML AMPUL.NEB 1 VIAL INH BID COPD (Reported) Ipratropium/Albuterol Sulfate (Iprat-Albut 0.5-3(2.5) MG/3 Ml) 0.5 MG-3 MG (2.5 MG BASE)/3 ML AMPUL.NEB 1 VIAL INH Q4H PRN WHEEZE/SOB RESP. DISTRESS ( Reported) Lorazepam (Ativan) 0.5 MG TABLET 1 TAB PO BID ANXIETY (Reported) Lorazepam (Ativan) 1 MG TABLET 1 TAB PO QHS ANXIETY (Reported) Magnesium Hydroxide (Milk Of Magnesia) 400 MG/5 ML ORAL.SUSP 30 ML PO Q3D PRN CONSTIPATION (Reported) Melatonin 3 MG TABLET 9 MG PO QPM SLEEP (Reported) Na Phos,M-B/Na Phos,Di-Ba (Fleet Enema) 19 GRAM-7 GRAM/118 ML ENEMA 1 E RC DAILY PRN CONSTIPATION (Reported) Naloxone HCl (Narcan) 4 MG/ACTUATION SPRAY 4 MG JAE AD PRN OPIOID INDUCED RESP. DEPRESSIO (Reported) Prednisone 5 MG TABLET 1 TAB PO DAILY STEROID (Reported) Propylene Glycol/Peg 400 (Systane 0.3-0.4% Eye Drops) (Unknown Strength) DROPS (Unknown Dose) OPH TID BOTH EYES (Reported) Scopolamine Hydrobromide (Transderm-Scop) 1.5MG/3DAY PATCH.TD.3 1 PAT TOP Q3D PRN ORAL SECRETIONS (Reported) apply to the hairless area behind 1 ear at least 4 hours before effect is required; reapply every 3 days as needed Sennosides (Senna) 8.6 MG TABLET 2 TAB PO DAILY GI (Reported) Sodium Chloride (Saline Nasal [place]) 0.65 % SPRAY 1 SPRAY NASB BID NASAL CONGESTION (Reported) Tiotropium [place] (Spiriva) 18 MCG CAP.W.DEV 1 CAP INH DAILY COPD (Reported) Tramadol HCl 50 MG TABLET 25 MG PO Q6H PRN PAIN UNRELIEVED BY APAP (Reported) Review of Systems Review of Systems Constitutional: Reports: see HPI. 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 Longterm Facility Services at Home: Home Health Aide, Nursing Smoking Status: Former Smoker ETOH Use: denies use Illicit Drug Use: denies illicit drug use Living Will? yes Power of Aeronautical Drafter/HCP? yes Name of POA/HCP: daughter Functional Ability ADLs Needs Assist: dressing, eating, toileting, bathing. Ambulation: non-ambulatory IADLs Needs Assist: shopping, housework, finances, food prep, telephone, transportation, medication admin. ECHO Results (as available) Date of last Echo 11/16/14 EF% 65 Exam & Diagnostic Data Last 24 Hrs of Vital Signs/I&O Vital Signs Date Time Temp Pulse Resp B/P Pulse O2 O2 Flow FiO2 Ox Delivery Rate 07/01 1258 96 07/01 0926 95 BIPAP 35% 07/01 0924 95 07/01 0800 94 BIPAP 35% 07/01 0800 97.0 89 24 110/60 94 BIPAP 35% 07/01 0610 81 94 07/01 0257 77 93 07/01 0042 97.3 87 24 98/48 87 BIPAP 07/01 0022 Nasal 2.0L Cannula 07/01 0005 63 87 07/01 0000 94 BIPAP 35% 06/30 2344 68 06/30 2036 93 Nasal 2.5L Cannula 06/30 2028 98.5 90 24 114/56 91 Nasal 4.0L Cannula 06/30 1855 Nasal 2.0L Cannula 06/30 1756 93 Nasal 2.0L Cannula 06/30 1745 Nasal 2.0L Cannula 06/30 1740 99.6 86 26 132/58 93 Nasal 2.0L Cannula 06/30 1727 91 Nasal 2.0L Cannula Intake & Output 07/01 1600 07/01 0800 07/01 0000 Intake Total 600 400 Output Total Balance 600 400 Intake, IV 600 400 Intake, Oral 0 0 Patient 119 lb Weight Last 48 Hrs of Labs/[place]: Laboratory Tests 07/01/16 1324: Troponin I Pending 07/01/16 0615: Anion Gap 9, Estimated GFR > 60, BUN/Creatinine Ratio 26.7 H, CBC w Diff NO MAN DIFF REQ, RBC 2.88 L, MCV 96.6, MCH 31.9 H, RDW 13.5, MPV 6.4 L, Gran % 97.5 H, Lymphocytes % 2.1 L, Monocytes % 0.4 L, Eosinophils % 0, Basophils % 0 L, Absolute Granulocytes 8.9 H, Absolute Lymphocytes 0.2 L, Absolute Monocytes 0 L, Absolute Eosinophils 0, Absolute Basophils 0, PUBS MCHC 33.0 07/01/16 0600: pH 7.40, pCO2 62 *H, pO2 70 L, HCO3 38 H, ABG O2 Sat (Measured) 94.0 L, P-50 (Temp Corrected) N, Carboxyhemoglobin 0.06 L, O2 Concentration % .35, Respiration Rate 26, O2 Delivery Method BIPAP, Vent Mode ST, Expiratory Pressure 6, Inspiratory Pressure 16, Phlebotomy Draw Site RIGHT RADIAL 07/01/16 0200: pH 7.35, pCO2 70 *H, pO2 72 L, HCO3 38 H, ABG O2 Sat (Measured) 94.0 L, P-50 (Temp Corrected) N, Carboxyhemoglobin 0.9 L, O2 Concentration % .35, Respiration Rate 26, O2 Delivery Method BIPAP, Vent Mode ST, Expiratory Pressure 6, Inspiratory Pressure 16, Phlebotomy Draw Site RIGHT RADIAL 06/30/16 2240: pH 7.33 L, pCO2 80 *H, pO2 80, HCO3 42 H, ABG O2 Sat (Measured) 95.0 L, P-50 (Temp Corrected) N, Carboxyhemoglobin 0.7 L, O2 Concentration % 2L, Temperature 98.9, O2 Delivery Method NC, Phlebotomy Draw Site RIGHT RADIAL 06/30/162039: Lactic Acid 1.0 06/30/161825: Anion Gap 5, Estimated GFR > 60, BUN/Creatinine Ratio 25.0, Glucose 142 H, Hemoglobin A1c 5.3, Lactic Acid 1.3, Calcium 9.5, Total Bilirubin 0.4, AST 20, ALT 27, Alkaline Phosphatase 75, Troponin I 0.02, Total Protein 6.3, Albumin 3.4 L, Globulin 2.9, Albumin/Globulin Ratio 1.2 06/30/16 1749: Urine Color YEL, Urine Clarity CLDY H, Urine pH 6.5, Ur Specific [place] 1.025, Urine Protein 100 H, Urine Ketones NEG, Urine Nitrite POS H, Urine Bilirubin NEG, Urine Urobilinogen 0.2, Ur Leukocyte Esterase LARGE H, Ur Microscopic SEDIMENT EXAMINED, Urine WBC PACKD H, Urine Hemoglobin MOD H, Urine Glucose NEG 06/30/16 1735: CBC w Diff NO MAN DIFF REQ, RBC 3.03 L, MCV 96.4, MCH 31.4 H, RDW 13.7, MPV 6.2 L, Gran % 93.2 H, Lymphocytes % 2.5 L, Monocytes % 4.0, Eosinophils % 0.3 , Basophils % 0 L, Absolute Granulocytes 11.1 H, Absolute Lymphocytes 0.3 L, Absolute Monocytes 0.5, Absolute Eosinophils 0, Absolute Basophils 0, PUBS MCHC 32.6 L 06/30/16 1725: pH 7.36, pCO2 73 *H, pO2 58 L, HCO3 40 H, ABG O2 Sat (Measured) 88.0 L, P-50 (Temp Corrected) N, Carboxyhemoglobin 0.7 L, O2 Concentration % 2L, Temperature 98.9, O2 Delivery Method [place], Phlebotomy Draw Site LEFT RADIAL Microbiology 06/30 2214 NASOPHARYN: Influenza Virus A & B Rapid Smear - COMP Assessment/Plan Impression/Plan: SIGNIFICANT DATA Chest x-ray reviewed showed hyperinflated lung with COPD with interstitial changes stable since the last chest x-ray Blood work showed potassium was 5.4 bicarbonate 40 which has been chronically elevated White count 9.1 hemoglobin chronically low at 9.2 with significant left shift noted ABG reviewed which showed 7.40/62/70 on BiPAP Urine culture grew gram-negative [place] sputum cultures also growing gram-negative rods patient has had previous strep pneumo and staph aureus in the sputum Physical Exam General Appearance Alert, Oriented X3, Cooperative, Mild Distress Skin skin tear on right lateral calf with clean dry dressing KATE COLLINS, EOMI, 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 Cardiovascular Regular Rate, Normal S1, Normal S2 Lungs b/l ronchii Abdomen Normal Bowel Sounds, Soft, No Tenderness Neurological Normal Speech, Strength at 5/5 X4 Ext, Normal Tone, Sensation Intact, Cranial Nerves 3-12 NL Extremities No Clubbing, No Cyanosis, No Edema IMPRESSION This is an elderly lady who has very severe COPD, significant bronchiectasis, recurrent bilateral pneumonitis with mucous plugging, worsening overall performance status, significant anxiety, on and off occasional chest discomfort, hyperlipidemia, hypertension, mild dementia and depression, diabetes and hypothyroidism * Acute hypoxemic and hypercarbic respiratory failure, due to end-stage lung disease with COPD and bronchiectasis with significant gram-negative rods in the sputum patient is high-risk for Pseudomonas bronchitis. * Severe COPD with ongoing exacerbation * Mild interstitial lung disease on top of her chronic lung disease * Ongoing chest discomfort probably related to respiratory distress with mild ST -T changes rule out acute myocardial ischemia * Urinary tract infection * Mild hyperkalemia * Protein energy malnutrition * Chronic anemia * Previous thickened esophagus in the CAT scan we GERD * Previous anxiety and depression with the tracheobronchomalacia with ongoing wheezing * Worsening performance status * Right lateral calf ulcer RECOMMENDATION * Continue BiPAP * Continue ceftazidime for now * Give one dose of Diamox 500 mg * Continue Mucomyst for now and that can be discontinued tomorrow * Discontinue Spiriva * Continue albuterol nebulizer therapy around the clock every 6 hours * Can discontinue vancomycin after today * Continue prednisone or Solu-Medrol 40 mg every 8 for today and reduce it to every 12 tomorrow * Continue other medications * Low-dose anxiolytic * If the patient isn't having significant worsening pain she would benefit from a very low dose morphine to reduce the work of breathing * Continue to monitor potassium * Heparin subcutaneous * Keep nothing by mouth unless she can eat * Continue proton pump inhibitor Prognosis guarded Consult Acknowledgment - Thank you for your consult request.
[2016-07-01 16:00] VITALS: BP 160/80
--- NOTE | 2016-07-01 18:55 | Cons- Cardiology ---
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 She is currently residing in [facility]. She was last here about one year ago with a similar presentation of exacerbation of COPD/pulmonary infection. She was admitted yesterday. This afternoon she was complaining of chest heaviness which lasted for a few hours. An EKG was done and was unremarkable. A troponin was done which was negative. She also had a negative troponin on admission. The patient denies any underlying heart disease. She is not on any cardiac medications in the longterm. She states she does not get exertional chest pain. She is chronically short of breath. She has no palpitations. She has no edema. Her last echocardiogram was done in November 2014 and showed normal left ventricular systolic function, thickening of the aortic valve but no aortic stenosis, thickening of the mitral valve, right ventricular systolic pressure was at the high normal range. When I examined to the patient states she has no further chest discomfort Allergies/Medications Allergies: Coded Allergies: Penicillins (PER W-10 06/30/16) aspirin (GI UPSET, NOSEBLEEDS 06/30/16) Home Med List: Acetaminophen (Pain Relief) 650 MG TABLET.ER 1 TAB PO TID BACK PAIN (Reported ) Acetaminophen (Acephen) 650 MG SUPP.RECT 1 SUPP NJ Q4H PRN PAIN/TEMP>101 ( Reported) Acetaminophen 325 MG TABLET 2 TAB PO Q4H PRN PAIN/TEMP>101 (Reported) Bimatoprost (Lumigan) 0.01 % DROPS 1 GTT OD QPM RIGHT EYE (Reported) Bisacodyl (Dulcolax) 10 MG SUPP.RECT 1 SUP RC DAILY PRN CONSTIPATION ( Reported) Calcitonin,Vanderbilt,Synthetic (Calcitonin-Vanderbilt) 200 UNIT/SPRAY SPRAY.PUMP 1 SPRAY JAE DAILY UNKNOWN (Reported) Citalopram Hydrobromide (Celexa) 20 MG TABLET 1 TAB PO QHS MENTAL HEALTH ( Reported) Docusate Sodium (Colace) 100 MG CAPSULE 1 CAP PO DAILY STOOL SOFTENER ( Reported) Dorzolamide HCl (Trusopt) 2 % DROPS 1 DROP OD BID RIGHT EYE (Reported) Fluticasone/Vilanterol (Breo Ellipta 100-25 Mcg INH) 100 MCG-25 MCG/DOSE BLST.W.DEV 1 PUF INH DAILY COPD (Reported) Gabapentin 100 MG CAPSULE 200 MG PO BID LEG SPASMS (Reported) Guaifenesin (Adult Tussin Chest Congestion) (Unknown Strength) LIQUID (Unknown Dose) PO Q6H PRN COUGH (Reported) Ipratropium/Albuterol Sulfate (Iprat-Albut 0.5-3(2.5) MG/3 Ml) 0.5 MG-3 MG (2.5 MG BASE)/3 ML AMPUL.NEB 1 VIAL INH BID COPD (Reported) Ipratropium/Albuterol Sulfate (Iprat-Albut 0.5-3(2.5) MG/3 Ml) 0.5 MG-3 MG (2.5 MG BASE)/3 ML AMPUL.NEB 1 VIAL INH Q4H PRN WHEEZE/SOB RESP. DISTRESS ( Reported) Lorazepam (Ativan) 0.5 MG TABLET 1 TAB PO BID ANXIETY (Reported) Lorazepam (Ativan) 1 MG TABLET 1 TAB PO QHS ANXIETY (Reported) Magnesium Hydroxide (Milk Of Magnesia) 400 MG/5 ML ORAL.SUSP 30 ML PO Q3D PRN CONSTIPATION (Reported) Melatonin 3 MG TABLET 9 MG PO QPM SLEEP (Reported) Na Phos,M-B/Na Phos,Di-Ba (Fleet Enema) 19 GRAM-7 GRAM/118 ML ENEMA 1 E RC DAILY PRN CONSTIPATION (Reported) Naloxone HCl (Narcan) 4 MG/ACTUATION SPRAY 4 MG JAE AD PRN OPIOID INDUCED RESP. DEPRESSIO (Reported) Prednisone 5 MG TABLET 1 TAB PO DAILY STEROID (Reported) Propylene Glycol/Peg 400 (Systane 0.3-0.4% Eye Drops) (Unknown Strength) DROPS (Unknown Dose) OPH TID BOTH EYES (Reported) Scopolamine Hydrobromide (Transderm-Scop) 1.5MG/3DAY PATCH.TD.3 1 PAT TOP Q3D PRN ORAL SECRETIONS (Reported) apply to the hairless area behind 1 ear at least 4 hours before effect is required; reapply every 3 days as needed Sennosides (Senna) 8.6 MG TABLET 2 TAB PO DAILY GI (Reported) Sodium Chloride (Saline Nasal Virgil) 0.65 % SPRAY 1 SPRAY NASB BID NASAL CONGESTION (Reported) Tiotropium [place] (Spiriva) 18 MCG CAP.W.DEV 1 CAP INH DAILY COPD (Reported) Tramadol HCl 50 MG TABLET 25 MG PO Q6H PRN PAIN UNRELIEVED BY APAP (Reported) Current Medications: Current Medications Sig/Teena Start time Last Medication Dose Route Stop Time Status Admin Acetaminophen 650 MG Q6P PRN 06/30 2045 AC PO Acetaminophen/ 1 TAB Q6P PRN 06/30 2045 AC Hydrocodone Bitart PO Acetazolamide 500 MG ONCE ONE 07/01 1600 DC PO 07/01 1601 Acetazolamide 500 MG ONCE ONE 07/01 1430 CAN Sodium Chloride 50 ML IV 07/01 1700 Acetylcysteine 2 ML BID 07/01 1000 AC 07/01 INH 0923 Albuterol Sulfate 3 ML EVERY 4 HRS/AWAKE 07/01 0800 AC 07/01 INH 1630 Albuterol Sulfate 3 ML ONCE ONE 06/30 1900 DC 06/30 INH 06/30 1901 1850 Azithromycin 500 MG ONCE ONE 06/30 1800 DC 06/30 Dextrose/Water 250 ML IV 06/30 1859 1838 Budesonide/ 2 PUF BID 06/30 2200 AC 07/01 Formoterol Fumarate INH 1031 Ceftazidime 1,000 MG Q8 06/30 2200 AC 07/01 IV 1320 Citalopram 20 MG AT BEDTIME 06/30 2200 AC Hydrobromide PO Dorzolamide HCl 2 GTT BID 06/30 2200 AC 07/01 OPH 1026 Gabapentin 200 MG BID 07/01 2200 AC PO Gabapentin 200 MG BID 06/30 2200 DC PO Heparin Sodium 5,000 UNIT Q8 06/30 2200 AC 07/01 (Porcine) SC 1318 Insulin Aspart 0 TIDAC/HS 07/01 0800 AC 07/01 SC 1313 Lorazepam 0.5 MG 0900,1300 07/02 0900 AC PO 07/09 0859 Lorazepam 1 MG AT BEDTIME 07/01 2200 AC PO Lorazepam 0.25 MG Q12 PRN 07/01 1430 DC IV Lorazepam 0.25 MG ONCE ONE 07/01 1415 DC 07/01 IV 07/01 1416 1511 Lorazepam 0.5 MG ONCE ONE 07/01 1015 CAN IV 07/01 1016 Lorazepam 0.5 MG 0900,1300 07/01 0900 CAN PO 07/08 0859 Lorazepam 1 MG AT BEDTIME 06/30 220 DC PO Lorazepam 0.5 MG BID 06/30 220 DC PO 07/07 2159 Melatonin 9 MG QPM 07/01 2200 AC PO Methylprednisolone 40 MG 1800,0600 07/02 1800 AC IV Methylprednisolone 40 MG Q8 06/30 2200 AC 07/01 IV 07/02 0700 1320 Morphine Sulfate 1 MG Q6P PRN 07/01 1430 AC IV Nitroglycerin 0.5 GM Q6 07/01 1345 DC 07/01 TOP 1336 Nitroglycerin 0.2 MG ONCE ONE 07/01 1315 CAN TOP 07/01 1316 Omeprazole 40 MG DAILY AC 07/01 1530 AC PO Oxycodone/ 2 TAB Q6P PRN 06/30 2045 AC Acetaminophen PO Pantoprazole Sodium 40 MG DAILY 07/01 1430 DC IV Sodium Chloride 1,000 ML ONCE ONE 06/30 2045 DC 06/30 IV 07/01 1004 2203 Tiotropium [place] 1 PUF DAILY 07/01 1000 AC 07/01 INH 1028 Vancomycin HCl 1,000 MG DAILY@07/01 CAN Dextrose/Water 250 ML IV 07/01 2259 Vancomycin HCl 1,000 MG DAILY@06/30 2200 CAN IV Vancomycin HCl 1,000 MG DAILY@06/30 2200 DC 06/30 Dextrose/Water 250 ML IV 2203 Review of Systems Review of Systems: Her only complaint in the review of systems is difficulty breathing, cough Past History Travel History Traveled to [place] past 21 day No Medical History Blood Transfusion Hx: No Neurological: TIA EENT: cataracts, 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 Services at Home: Home Health Aide, Nursing Smoking Status: Former Smoker ETOH Use: denies use Illicit Drug Use: denies illicit drug use Living Will? yes Power of Hse Specialist/HCP? yes Name of POA/HCP: daughter Functional Ability ADLs Needs Assist: dressing, eating, toileting, bathing. Ambulation: non-ambulatory IADLs Needs Assist: shopping, housework, finances, food prep, telephone, transportation, medication admin. ECHO Results (as available) Date of last Echo 11/16/14 EF% 65 Exam & Diagnostic Data Vital Signs and I&O Vital Signs Date Time Temp Pulse Resp B/P Pulse O2 O2 Flow FiO2 Ox Delivery Rate 07/01 1650 107 91 07/01 1630 98 Nasal 5.0L Cannula 07/01 1442 93 07/01 1258 96 07/01 0926 95 BIPAP 35% 07/01 0924 95 07/01 0800 94 BIPAP 35% 07/01 0800 97.0 89 24 110/60 94 BIPAP 35% 07/01 0610 81 94 07/01 0257 77 93 07/01 0042 97.3 87 24 98/48 87 BIPAP 07/01 0022 Nasal 2.0L Cannula 07/01 0005 63 87 07/01 0000 94 BIPAP 35% 06/30 2344 68 06/30 2035 93 Nasal 2.5L Cannula 06/30 2028 98.5 90 24 114/56 91 Nasal 4.0L Cannula 06/30 1855 Nasal 2.0L Cannula Intake & Output 07/01 1600 07/01 0800 07/01 0000 06/30 1600 06/30 0800 06/30 0000 Intake Total 375 600 400 Output Total Balance 375 600 400 Intake, IV 375 600 400 Intake, Oral 0 0 0 Number 0 Bowel Movements Patient 119 lb Weight Physical Exam: Very elderly, thin, chronically ill appearing female in mild to moderate respiratory distress on BiPAP HEENT exam grossly normal with BiPAP on Neck veins not distended Chest diffuse rhonchi and moderate wheezing Heart regular rhythm and no murmurs, although heart sounds are largely obscured by respiratory noise, Extremities reveal no edema and pulses are present Labs/Augustin Results: Laboratory Tests 07/01 07/01 07/01 1324 0615 0600 Blood Gas pH (7.35 - 7.45 PH) 7.40 pCO2 (35 - 45 TORR) 62 *H pO2 (80 - 100 TORR) 70 L HCO3 (21 - 28 MEQ/L) 38 H ABG O2 Sat (Measured) (>96.0 %) 94.0 L P-50 (Temp Corrected) N Carboxyhemoglobin (1.5 - 5.0 %) 0.06 L O2 Concentration % .35 Respiration Rate (BPM) 26 O2 Delivery Method BIPAP Vent Mode ST Expiratory Pressure (CM H2O P) 6 Inspiratory Pressure (CM H2O P) 16 Chemistry Sodium (137 - 145 mmol/L) 137 Potassium (3.5 - 5.1 mmol/L) 5.4 H Chloride (98 - 107 mmol/L) 88 L Carbon Dioxide (22 - 30 mmol/L) 40 H Anion Gap (5 - 16) 9 BUN (7 - 17 mg/dL) 16 Creatinine (0.5 - 1.0 mg/dL) 0.6 Estimated GFR (>60 ml/min) > 60 BUN/Creatinine Ratio (7 - 25 %) 26.7 H Troponin I (< 0.11 ng/ml) < 0.01 Hematology CBC w Diff NO MAN DIFF REQ WBC (4.8 - 10.8 /CUMM) 9.1 RBC (4.20 - 5.40 /CUMM) 2.88 L Hgb (12.0 - 16.0 G/DL) 9.2 L Hct (37 - 47 %) 27.8 L MCV (81.0 - 99.0 FL) 96.6 MCH (27.0 - 31.0 PG) 31.9 H RDW (11.5 - 14.5 %) 13.5 Plt Count (130 - 400 /CUMM) 272 MPV (7.4 - 10.4 FL) 6.4 L Gran % (42.2 - 75.2 %) 97.5 H Lymphocytes % (20.5 - 51.1 %) 2.1 L Monocytes % (1.7 - 9.3 %) 0.4 L Eosinophils % (0 - 5 %) 0 Basophils % (0.0 - 2.0 %) 0 L Absolute Granulocytes (1.4 - 6.5 /CUMM) 8.9 H Absolute Lymphocytes (1.2 - 3.4 /CUMM) 0.2 L Absolute Monocytes (0.10 - 0.60 /CUMM) 0 L Absolute Eosinophils (0.0 - 0.7 /CUMM) 0 Absolute Basophils (0.0 - 0.2 /CUMM) 0 PUBS MCHC (33.0 - 37.0 G/DL) 33.0 Miscellaneous Phlebotomy Draw Site RIGHT RADIAL 07/01 06/30 06/30 06/30 0200 2240 2040 1826 Blood Gas pH (7.35 - 7.45 PH) 7.35 7.33 L pCO2 (35 - 45 TORR) 70 *H 80 *H pO2 (80 - 100 TORR) 72 L 80 HCO3 (21 - 28 MEQ/L) 38 H 42 H ABG O2 Sat (Measured) (>96.0 %) 94.0 L 95.0 L P-50 (Temp Corrected) N N Carboxyhemoglobin (1.5 - 5.0 %) 0.9 L 0.7 L O2 Concentration % .35 2L Temperature (97.0 - 100.0 FARH) 98.9 Respiration Rate (BPM) 26 O2 Delivery Method BIPAP NC Vent Mode ST Expiratory Pressure (CM H2O P) 6 Inspiratory Pressure (CM H2O P) 16 Chemistry Sodium (137 - 145 mmol/L) 138 Potassium (3.5 - 5.1 mmol/L) 5.4 H Chloride (98 - 107 mmol/L) 88 L Carbon Dioxide (22 - 30 mmol/L) 45 H Anion Gap (5 - 16) 5 BUN (7 - 17 mg/dL) 15 Creatinine (0.5 - 1.0 mg/dL) 0.6 Estimated GFR (>60 ml/min) > 60 BUN/Creatinine Ratio (7 - 25 %) 25.0 Glucose (65 - 99 mg/dL) 142 H Hemoglobin A1c (4.2 - 5.8 %) 5.3 Lactic Acid (0.7 - 2.1 mmol/L) 1.0 1.3 Calcium (8.4 - 10.2 mg/dL) 9.5 Total Bilirubin (0.2 - 1.3 mg/dL) 0.4 AST (14 - 36 U/L) 20 ALT (9 - 52 U/L) 27 Alkaline Phosphatase (<127 U/L) 75 Troponin I (< 0.11 ng/ml) 0.02 Total Protein (6.3 - 8.2 g/dL) 6.3 Albumin (3.5 - 5.0 g/dL) 3.4 L Globulin (1.9 - 4.2 gm/dL) 2.9 Albumin/Globulin Ratio (1.1 - 2.2 %) 1.2 Miscellaneous Phlebotomy Draw Site RIGHT RADIAL RIGHT RADIAL 06/30 06/30 4468 1735 Hematology CBC w Diff NO MAN DIFF REQ WBC (4.8 - 10.8 /CUMM) 11.9 H RBC (4.20 - 5.40 /CUMM) 3.03 L Hgb (12.0 - 16.0 G/DL) 9.5 L Hct (37 - 47 %) 29.2 L MCV (81.0 - 99.0 FL) 96.4 MCH (27.0 - 31.0 PG) 31.4 H RDW (11.5 - 14.5 %) 13.7 Plt Count (130 - 400 /CUMM) 305 MPV (7.4 - 10.4 FL) 6.2 L Gran % (42.2 - 75.2 %) 93.2 H Lymphocytes % (20.5 - 51.1 %) 2.5 L Monocytes % (1.7 - 9.3 %) 4.0 Eosinophils % (0 - 5 %) 0.3 Basophils % (0.0 - 2.0 %) 0 L Absolute Granulocytes (1.4 - 6.5 /CUMM) 11.1 H Absolute Lymphocytes (1.2 - 3.4 /CUMM) 0.3 L Absolute Monocytes (0.10 - 0.60 /CUMM) 0.5 Absolute Eosinophils (0.0 - 0.7 /CUMM) 0 Absolute Basophils (0.0 - 0.2 /CUMM) 0 PUBS MCHC (33.0 - 37.0 G/DL) 32.6 L Urines Urine Color (YEL,AMB,STR) YEL Urine Clarity (CLEAR) CLDY H Urine pH (5.0 - 8.0) 6.5 Ur Specific [place] (1.001 - 1.035) 1.025 Urine Protein (NEG,<30 MG/DL) 100 H Urine Ketones (NEG) NEG Urine Nitrite (NEG) POS H Urine Bilirubin (NEG) NEG Urine Urobilinogen (0.1 - 1.0 EU/dl) 0.2 Ur Leukocyte Esterase (NEG) LARGE H Ur Microscopic SEDIMENT EXAMINED Urine WBC (0 - 2 /HPF) PACKD H Urine Hemoglobin (NEG) MOD H Urine Glucose (N MG/DL) NEG 06/30 4125 Blood Gas pH (7.35 - 7.45 PH) 7.36 pCO2 (35 - 45 TORR) 73 *H pO2 (80 - 100 TORR) 58 L HCO3 (21 - 28 MEQ/L) 40 H ABG O2 Sat (Measured) (>96.0 %) 88.0 L P-50 (Temp Corrected) N Carboxyhemoglobin (1.5 - 5.0 %) 0.7 L O2 Concentration % 2L Temperature (97.0 - 100.0 FARH) 98.9 O2 Delivery Method NC Miscellaneous Phlebotomy Draw Site LEFT RADIAL Diagnostic Data EKG Results EKG on admission on 06/30/2016 showed sinus rhythm at a rate of 94 and was within normal limits. Repeat EKG done today at about 1 PM shows sinus rhythm rate of 85 with for a minor nonspecific T-wave changes in lead 1 and aVL. CXR Results PATIENT: KOSTASOCTOBER PRESENT AGE: 86 PATIENT ACCOUNT NO: [id number] : [birth year] LOCATION: [facility] ORDERING PHYSICIAN: OMID KNOX MD SERVICE DATE: 06/30/16 EXAM TYPE: RAD - XRY-PORTABLE CHEST XRAY EXAMINATION: XR CHEST PORTABLE CLINICAL INFORMATION: An 86-year-old female with shortness of breath. COMPARISON: Chest done on 06/06/2015. TECHNIQUE: Portable AP view of the chest was obtained. FINDINGS: Persistent stable hyperinflated lung field and superimposed nodular nonspecific airspace disease predominantly at left lung base, appears similar to prior study. The remainder of the lung puga appear clear, unchanged. The cardiomediastinal silhouette is within normal limits. There is no pleural effusion present. Overall, no significant change. IMPRESSION: Hyperinflated lung field likely represent COPD/emphysematous disease with nonspecific somewhat nodular interstitial changes predominantly at left lung base, appears stable since 06/06/2015. DICTATED BY: ANTONY LEES MD DATE/TIME DICTATED:06/30/161827 PASSENGER INTERLINE CLERK:NATALI DATE/TIME TRANSCRIBED:06/30/161827 CONFIDENTIAL, DO NOT COPY WITHOUT APPROPRIATE AUTHORIZATION. <Electronically signed in Other Vendor System> SIGNED BY: ANTONY LEES MD 06/30/16 [id number] Assessment/Plan Assessment/Plan The patient is an 86-year-old female with very severe underlying lung disease now with exacerbation of COPD and the probable bronchitis. She developed some chest heaviness this afternoon. An EKG did not show any acute changes and her initial troponin today is negative. I think her chest heaviness was due to the work of breathing and also some anxiety, which her family told me was one of her problems. I recommend serial EKGs and enzymes. If these are negative then we can effectively rule out any underlying ischemia. I recommend a follow-up echocardiogram which has already been ordered and I will review this when available. Consult Acknowledgment - Thank you for your consult request.
[2016-07-02 01:37] VITALS: BP 120/70
--- NOTE | 2016-07-02 06:56 | PN- Housestaff ---
CHELO TAYLOR,[facility] 07/02/16 0655: Subjective Follow-up For: acute on chronic hypercapneic hypoxic resp failure Tele-Events Since Last Visit: SR 60-75, PVCs O2 sats in the 90s. Subjective: Pt was on bipap this morning when we evaluated her. She was on bipap overnight. Still complains of difficulty breathing with improvement in cough and not productive of sputum. she did not get much sleep overnight and was alert this morning. she still has some chest discomfort, reportedly mild, 3/10. 3 sets of trops and ekg were negative. she is still noticable anxious, although improved from yesterday. her home ativan dose was resumed. When she gets anxious, sitting with her and comforting her usually calms her down. hyperkalemia improved to 4.4 without kayexelate. Review of Systems Constitutional: Denies: chills, fever. EENTM: Denies: visual changes. Cardiovascular: Reports: chest pain. Denies: palpitations. Respiratory: Reports: cough, short of breath. Denies: sputum production. Gastrointestinal: Denies: abdominal pain. Genitourinary: Denies: dysuria. Objective Last 24 Hrs of Vital Signs/I&O Vital Signs Date Time Temp Pulse Resp B/P Pulse O2 O2 Flow FiO2 Ox Delivery Rate 07/02 0303 77 96 07/02 0137 98.1 84 20 120/70 96 BIPAP 07/02 0015 77 97 07/02 0000 BIPAP 35% 07/01 2125 112 93 07/01 1900 97 Nasal 5.0L Cannula 07/01 1650 107 91 07/01 1630 98 Nasal 5.0L Cannula 07/01 1600 98.4 88 18 160/80 BIPAP 5.0L 07/01 1600 96 Nasal 35% Cannula 07/01 1442 93 07/01 1258 96 07/01 0926 95 BIPAP 35% 07/01 0924 95 07/01 0800 94 BIPAP 35% 07/01 0800 97.0 89 24 110/60 94 BIPAP 35% Intake & Output 07/02 0800 07/02 0000 07/01 1600 Intake Total 150 320 375 Output Total 50 Balance 150 270 375 Intake, IV 0 30 375 Intake, Oral 150 290 0 Number 0 0 Bowel Movements Output, Urine 50 Physical Exam General Appearance: Alert, Cooperative, Mild Distress Skin: bruises on both arms, chronic skin changes on both legs POA HEENT: Atraumatic Cardiovascular: Regular Rate, Normal S1, Normal S2, No Murmurs, Gallops, Rubs Lungs: was on bipap, exp wheezes Abdomen: Normal Bowel Sounds, Soft Neurological: Normal Speech Extremities: No Edema Current Medications: Current Medications Sig/Teena Start time Last Medication Dose Route Stop Time Status Admin Acetaminophen 650 MG Q6P PRN 06/30 2044 AC PO Acetaminophen/ 1 TAB Q6P PRN 06/30 204 AC Hydrocodone Bitart PO Acetazolamide 500 MG ONCE ONE 07/01 1600 DC 07/01 PO 07/01 1601 1852 Acetazolamide 500 MG ONCE ONE 07/01 1430 CAN Sodium Chloride 50 ML IV 07/01 1700 Acetylcysteine 2 ML BID 07/01 1000 AC 07/01 INH 2055 Albuterol Sulfate 3 ML EVERY 4 HRS/AWAKE 07/01 0800 AC 07/01 INH 205 Budesonide/ 2 PUF BID 06/30 220 AC 07/01 Formoterol Fumarate INH 211 Ceftazidime 1,000 MG Q8 06/30 220 AC 07/02 IV 0525 Citalopram 20 MG AT BEDTIME 06/30 220 AC 07/01 Hydrobromide PO 211 Dorzolamide HCl 2 GTT BID 06/30 220 AC 07/01 OPH 2117 Gabapentin 200 MG BID 07/01 2200 AC 07/01 PO 2115 Heparin Sodium 5,000 UNIT Q8 06/30 2200 AC 07/02 (Porcine) SC 0525 Insulin Aspart 0 TIDAC/HS 07/01 0800 AC 07/01 SC 1853 Lorazepam 0.5 MG 0900,1300 07/02 0900 AC PO 07/09 0859 Lorazepam 1 MG AT BEDTIME 07/01 220 AC 07/01 PO 2116 Lorazepam 0.25 MG Q12 PRN 07/01 1430 DC IV Lorazepam 0.25 MG ONCE ONE 07/01 1415 DC 07/01 IV 07/01 1416 1511 Lorazepam 0.5 MG ONCE ONE 07/01 1015 CAN IV 07/01 1016 Melatonin 9 MG QPM 07/01 2200 AC 07/01 PO 2115 Methylprednisolone 40 MG 1800,0600 07/02 1800 AC IV Methylprednisolone 40 MG Q8 06/30 2200 DC 07/02 IV 07/02 0700 0526 Morphine Sulfate 1 MG Q6P PRN 07/01 1430 AC IV Nitroglycerin 0.5 GM Q6 07/01 1345 DC 07/01 TOP 1336 Nitroglycerin 0.2 MG ONCE ONE 07/01 1315 CAN TOP 07/01 1316 Omeprazole 40 MG DAILY AC 07/01 1530 AC 07/02 PO 0526 Oxycodone/ 2 TAB Q6P PRN 06/30 2045 AC Acetaminophen PO Pantoprazole Sodium 40 MG DAILY 07/01 1430 DC IV Sodium Chloride 1,000 ML ONCE ONE 06/30 2045 DC 06/30 IV 07/01 1004 2203 Tiotropium [place] 1 PUF DAILY 07/01 1000 AC 07/01 INH 1028 Vancomycin HCl 1,000 MG DAILY@07/01 2200 CAN Dextrose/Water 250 ML IV 07/01 2259 Vancomycin HCl 1,000 MG DAILY@06/30 2200 DC 06/30 Dextrose/Water 250 ML IV 220 Last 24 Hrs of Lab/Augustin Results Last 24 Hrs of Labs/Mics: Laboratory Tests 07/02/16 0638: Anion Gap 9, Estimated GFR > 60, BUN/Creatinine Ratio 32.5 H, CBC w Diff Pending, WBC Pending, RBC Pending, Hgb Pending, Hct Pending, MCV Pending, MCH Pending, RDW Pending, Plt Count Pending, MPV Pending, PUBS MCHC Pending 07/02/16 0130: Troponin I 0.10 07/01/16 2030: Troponin I 0.07 07/01/16 1900: Troponin I Cancelled 07/01/16 1324: Troponin I < 0.01 Assessment/Plan Assessment: 86-year-old lady with a history of COPD with 2 L home O2, ILD, tracheobronchomalacia, depression, resident of assisted living facility ([facility]) for CC of altered mental status, tactile fevers, hypoxia, increased dyspnea, cough productive of green sputum increased O2 requirement to 3.5L, + flu contact. She was admitted to telemetry for continuous pulse ox monitoring, and treated for acute on chronic hypercapneic and hypoxic respiratoryu failure due to COPD exacerbation and possible healthcare acquired pneumonia. Flu was negative. She was started on bipap. Problem list: # Acute on chronic hypercarbic and hypoxic respiratory failure most likely due to COPD exacerbation and possible HCAP # Acute substernal chest pain in the settings of respiratory distress could be suggestive of demand ischemia # AMS improved # Asymptomatic urinary tract infection # Mild Hyperkalemia (K5.4 improved to 4.4) # Protein calorie malnutrition # Chronic anemia # Right calf ulcer in dry sterile dressing # Acute on chronic hypercarbic and hypoxic respiratory failure most likely due to COPD exacerbation and possible HCAP (concerns of gram negative pneumonia, previous MSSA) - CXR: Hyperinflated lung field secondary to COPD emphysematous changes somewhat nodular interstitial changes on the left base stable since 06/06/2015. - Leukocytosis (11.9) with left shift, no bands - ABG admission : 7.36/73H/58L/40H - ABG on BIPAP : 7.40/62H/70L/38H - AMS on admission, now improved * Follow Min culture; blood cultures, urine strep and Legionella antigen, sputum culture (PANSENSITIVE PSEUDOMONAS and staph aureus) * DC'd vanco after 1 dose. Continue ceftazidime day # 2. * IV Solu-Medrol 40 q12 --> will change to daily tomorrow * Discontinue mucomyst after 2 days * Diamox X 1 given 07/01, 07/02 * Continue on BiPAP as needed (nocturnal) * Passed bedside swallow eval, formal swallow eval today * Continue home Ativan 1 mg at bedtime, 0.5 mg at 9am and 1pm. HOLD IF DROWSY. * Continuous pulse ox * TRC evaluation, total pulmonary toilet * Pulm consult with Dr. Jewell appreciated * Continue albuterol. Hold spiriva. # Acute substernal chest pain in the settings of respiratory distress could be suggestive of demand ischemia - Jun 2016 echocardiogram: Normal left ventricular ejection fraction visually estimated at >65. Abnormal relaxation filling pattern of the left ventricle for age (stage 1 diastolic dysfunction). * Serial trops and EKG X 3 negative for ACS * Follow up Dr. Pastrana (cardiology) recommendation * Nitropaste 0.5 X 1 given * 1mg morphine IV q6prn difficulty breathing * Discontinue telemetry monitoring # UTI on UA but pt asymptomatic * Follow urine culture (pansensitive pseudomonas) * Already on abx for HCAP that would adequately cover UTI # Right calf ulcer in dry sterile dressing * Wound consult appreciated # DM * novolog ss tidac/qhs * Follow hba1c # Continue * Celexa * Ativan and gabapentin * Omeprazole 40 mg daily Diet: CC2 puree DVT ppx: SC heparin DNR/DNI Problem List: 1. Acute on chronic respiratory failure with hypoxia and hypercapnia 2. Gram-negative pneumonia Pain Ratin Pain Location: chest Pain Goal: Pain 4 or less Pain Plan: morphine Tomorrow's Labs & Rationales: BEP for high bicarb CBC for anemia , dropping h.h DVT/Prophylaxis: pharmacological LATISHA TAYLOR,ANUSHKA 07/02/16 1317: Attending MD Review Statement Attending Statement Attending MD Statement: examined this patient, discuss w/resident/PA/VISUAL COORDINATOR, agreed w/resident/PA/VISUAL COORDINATOR, reviewed EMR data (avail), discussed with nursing, discussed with case mgmt, amended to note Attending Assessment/Plan: Patient seen and examined. She required BiPAP therapy also yesterday and overnight. He was taken to BiPAP therapy this morning. Abductor seasonal comfortably in her bed eating breakfast. She reports feeling better. Denies chest pain. Denies shortness of breath at rest. She is requiring 4 L to maintain saturation. On examination however she continues to have diffuse rhonchorous breath sounds. Echocardiogram shows normal EF and diastolic dysfunction. Recommendations: -Continue to monitor patient will BiPAP therapy. Resume BiPAP at nighttime. BiPAP may be resumed during the daytime if patient becomes lethargic. -Cardiac enzymes have been negative. No ischemic changes on EKG. Echocardiogram shows normal wall motion dysfunction. Heart chest pain likely secondary to COPD and of cardiac etiology. Discontinue telemetry. -Patient will Pseudomonas in the hospital urine. She is also growing staph aureus in her sputum. Continue IV ceftazidime. Follow-up staph aureus identification to determine need for therapy with vancomycin. -Taper Solu-Medrol. -Continue benzodiazepine therapy for her anxiety disorder. -Repeat labs in the a.m. only if clinically indicated.
[2016-07-02 07:52] LABS: ABSOLUTE BASOPHIL COUNT 0 /CUMM (0.0-0.2); ABSOLUTE EOSINOPHIL COUNT 0 /CUMM (0.0-0.7); ABSOLUTE GRANULOCYTE CT 8.8 /CUMM (1.4-6.5); ABSOLUTE LYMPH COUNT 0.2 /CUMM (1.2-3.4); ABSOLUTE MONOCYTE COUNT 0.3 /CUMM (0.10-0.60); BASOPHIL % 0 % (0.0-2.0); EOSINOPHIL % 0.1 % (0-5); GRANULOCYTE % 94.9 % (42.2-75.2); MEAN CORPUSCULAR HGB CONC 33.2 G/DL (33.0-37.0); MEAN CORPUSCULAR VOLUME 96.2 FL (81.0-99.0); MEAN PLATELET VOLUME 6.9 FL (7.4-10.4); PLATELET COUNT 281 /CUMM (130-400); RBC DISTRIBUTION WIDTH 13.4 % (11.5-14.5); RED BLOOD CELL CT 2.81 /CUMM (4.20-5.40)
[2016-07-02 08:46] LABS: WHITE BLOOD CELL COUNT 9.3 /CUMM (4.8-10.8)
[2016-07-02 09:02] VITALS: BP 138/70
--- NOTE | 2016-07-02 10:07 | PN- Pulmonary ---
Subjective HPI/Critical Care Issues: Off bipap when I saw her and working with PT, she did not get much sleep overnight and was alert this morning. she still has some chest discomfort, reportedly mild, 3/10. 3 sets of trops and ekg were negative. she is still noticable anxious, although improved from yesterday. her home ativan dose was resumed. When she gets anxious, sitting with her and comforting her usually calms her down. hyperkalemia improved to 4.4 without kayexelate Review of Systems Constitutional: Denies: chills, fever. EENTM: Denies: visual changes. Cardiovascular: Reports: chest pain. Denies: palpitations. Respiratory: Reports: cough, short of breath. Denies: sputum production. Gastrointestinal: Denies: abdominal pain. Genitourinary: Denies: dysuria. Objective Current Medications: Current Medications Sig/Teena Start time Last Medication Dose Route Stop Time Status Admin Acetaminophen 650 MG Q6P PRN 06/30 2044 AC PO Acetaminophen/ 1 TAB Q6P PRN 06/30 204 AC Hydrocodone Bitart PO Acetazolamide 500 MG ONCE ONE 07/01 1600 DC 07/01 PO 07/01 1601 1852 Acetazolamide 500 MG ONCE ONE 07/01 1430 CAN Sodium Chloride 50 ML IV 07/01 1700 Acetylcysteine 2 ML BID 07/01 1000 DC 07/01 INH 205 Albuterol Sulfate 3 ML EVERY 4 HRS/AWAKE 07/01 0800 AC 07/01 INH 2055 Budesonide/ 2 PUF BID 06/30 2200 AC 07/02 Formoterol Fumarate INH 0951 Ceftazidime 1,000 MG Q8 06/30 2200 AC 07/02 IV 0525 Citalopram 20 MG AT BEDTIME 06/30 220 AC 07/01 Hydrobromide PO 2116 Dorzolamide HCl 2 GTT BID 06/30 2200 AC 07/02 OPH 0955 Gabapentin 200 MG BID 07/01 220 AC 07/02 PO 0952 Heparin Sodium 5,000 UNIT Q8 06/30 220 AC 07/02 (Porcine) SC 0525 Insulin Aspart 0 TIDAC/HS 07/01 0800 AC 07/01 SC 1853 Lorazepam 0.5 MG 0900,1300 07/02 0900 AC 07/02 PO 07/09 0859 0956 Lorazepam 1 MG AT BEDTIME 07/01 2200 AC 07/01 PO 2116 Lorazepam 0.25 MG Q12 PRN 07/01 1430 DC IV Lorazepam 0.25 MG ONCE ONE 07/01 1415 DC 07/01 IV 07/01 1416 1511 Lorazepam 0.5 MG ONCE ONE 07/01 1015 CAN IV 07/01 1016 Melatonin 9 MG QPM 07/01 2200 AC 07/01 PO 2115 Methylprednisolone 40 MG 1800,0600 07/02 1800 AC IV Methylprednisolone 40 MG Q8 06/30 2200 DC 07/02 IV 07/02 0700 0526 Morphine Sulfate 1 MG Q6P PRN 07/01 1430 AC IV Nitroglycerin 0.5 GM Q6 07/01 1345 DC 07/01 TOP 1336 Nitroglycerin 0.2 MG ONCE ONE 07/01 1315 CAN TOP 07/01 1316 Omeprazole 40 MG DAILY AC 07/01 1530 AC 07/02 PO 0526 Oxycodone/ 2 TAB Q6P PRN 06/30 2045 AC Acetaminophen PO Pantoprazole Sodium 40 MG DAILY 07/01 1430 DC IV Tiotropium [place] 1 PUF DAILY 07/01 1000 AC 07/02 INH 0950 Vancomycin HCl 1,000 MG DAILY@07/01 CAN Dextrose/Water 250 ML IV 07/01 2259 Vancomycin HCl 1,000 MG DAILY@06/30 DC 06/30 Dextrose/Water 250 ML IV 2203 Laboratory Tests 07/02 07/02 07/01 0638 0130 2030 Chemistry Sodium (137 - 145 mmol/L) 140 Potassium (3.5 - 5.1 mmol/L) 4.4 Chloride (98 - 107 mmol/L) 93 L Carbon Dioxide (22 - 30 mmol/L) 39 H Anion Gap (5 - 16) 9 BUN (7 - 17 mg/dL) 26 H Creatinine (0.5 - 1.0 mg/dL) 0.8 Estimated GFR (>60 ml/min) > 60 BUN/Creatinine Ratio (7 - 25 %) 32.5 H Magnesium (1.6 - 2.3 mg/dL) 1.9 Troponin I (< 0.11 ng/ml) 0.10 0.07 Hematology CBC w Diff NO MAN DIFF REQ WBC (4.8 - 10.8 /CUMM) 9.3 RBC (4.20 - 5.40 /CUMM) 2.81 L Hgb (12.0 - 16.0 G/DL) 9.0 L Hct (37 - 47 %) 27.0 L MCV (81.0 - 99.0 FL) 96.2 MCH (27.0 - 31.0 PG) 32.0 H RDW (11.5 - 14.5 %) 13.4 Plt Count (130 - 400 /CUMM) 281 MPV (7.4 - 10.4 FL) 6.9 L Gran % (42.2 - 75.2 %) 94.9 H Lymphocytes % (20.5 - 51.1 %) 1.9 L Monocytes % (1.7 - 9.3 %) 3.1 Eosinophils % (0 - 5 %) 0.1 Basophils % (0.0 - 2.0 %) 0 L Absolute Granulocytes (1.4 - 6.5 /CUMM) 8.8 H Absolute Lymphocytes (1.2 - 3.4 /CUMM) 0.2 L Absolute Monocytes (0.10 - 0.60 /CUMM) 0.3 Absolute Eosinophils (0.0 - 0.7 /CUMM) 0 Absolute Basophils (0.0 - 0.2 /CUMM) 0 PUBS MCHC (33.0 - 37.0 G/DL) 33.2 07/01 07/01 07/01 1900 1324 0615 Chemistry Sodium (137 - 145 mmol/L) 137 Potassium (3.5 - 5.1 mmol/L) 5.4 H Chloride (98 - 107 mmol/L) 88 L Carbon Dioxide (22 - 30 mmol/L) 40 H Anion Gap (5 - 16) 9 BUN (7 - 17 mg/dL) 16 Creatinine (0.5 - 1.0 mg/dL) 0.6 Estimated GFR (>60 ml/min) > 60 BUN/Creatinine Ratio (7 - 25 %) 26.7 H Troponin I (< 0.11 ng/ml) Cancelled < 0.01 Hematology CBC w Diff NO MAN DIFF REQ WBC (4.8 - 10.8 /CUMM) 9.1 RBC (4.20 - 5.40 /CUMM) 2.88 L Hgb (12.0 - 16.0 G/DL) 9.2 L Hct (37 - 47 %) 27.8 L MCV (81.0 - 99.0 FL) 96.6 MCH (27.0 - 31.0 PG) 31.9 H RDW (11.5 - 14.5 %) 13.5 Plt Count (130 - 400 /CUMM) 272 MPV (7.4 - 10.4 FL) 6.4 L Gran % (42.2 - 75.2 %) 97.5 H Lymphocytes % (20.5 - 51.1 %) 2.1 L Monocytes % (1.7 - 9.3 %) 0.4 L Eosinophils % (0 - 5 %) 0 Basophils % (0.0 - 2.0 %) 0 L Absolute Granulocytes (1.4 - 6.5 /CUMM) 8.9 H Absolute Lymphocytes (1.2 - 3.4 /CUMM) 0.2 L Absolute Monocytes (0.10 - 0.60 /CUMM) 0 L Absolute Eosinophils (0.0 - 0.7 /CUMM) 0 Absolute Basophils (0.0 - 0.2 /CUMM) 0 PUBS MCHC (33.0 - 37.0 G/DL) 33.0 07/01 07/01 06/30 06/30 0600 0200 2240 2040 Blood Gas pH (7.35 - 7.45 PH) 7.40 7.35 7.33 L pCO2 (35 - 45 TORR) 62 *H 70 *H 80 *H pO2 (80 - 100 TORR) 70 L 72 L 80 HCO3 (21 - 28 MEQ/L) 38 H 38 H 42 H ABG O2 Sat (Measured) (>96.0 %) 94.0 L 94.0 L 95.0 L P-50 (Temp Corrected) N N N Carboxyhemoglobin (1.5 - 5.0 %) 0.06 L 0.9 L 0.7 L O2 Concentration % .35 .35 2L Temperature (97.0 - 100.0 FARH) 98.9 Respiration Rate (BPM) 26 26 O2 Delivery Method BIPAP BIPAP NC Vent Mode ST ST Expiratory Pressure (CM H2O P) 6 6 Inspiratory Pressure (CM H2O P) 16 16 Chemistry Lactic Acid (0.7 - 2.1 mmol/L) 1.0 Miscellaneous Phlebotomy Draw Site RIGHT RADIAL RIGHT RADIAL RIGHT RADIAL 06/30 06/30 8346 1749 Chemistry Sodium (137 - 145 mmol/L) 138 Potassium (3.5 - 5.1 mmol/L) 5.4 H Chloride (98 - 107 mmol/L) 88 L Carbon Dioxide (22 - 30 mmol/L) 45 H Anion Gap (5 - 16) 5 BUN (7 - 17 mg/dL) 15 Creatinine (0.5 - 1.0 mg/dL) 0.6 Estimated GFR (>60 ml/min) > 60 BUN/Creatinine Ratio (7 - 25 %) 25.0 Glucose (65 - 99 mg/dL) 142 H Hemoglobin A1c (4.2 - 5.8 %) 5.3 Lactic Acid (0.7 - 2.1 mmol/L) 1.3 Calcium (8.4 - 10.2 mg/dL) 9.5 Total Bilirubin (0.2 - 1.3 mg/dL) 0.4 AST (14 - 36 U/L) 20 ALT (9 - 52 U/L) 27 Alkaline Phosphatase (<127 U/L) 75 Troponin I (< 0.11 ng/ml) 0.02 Total Protein (6.3 - 8.2 g/dL) 6.3 Albumin (3.5 - 5.0 g/dL) 3.4 L Globulin (1.9 - 4.2 gm/dL) 2.9 Albumin/Globulin Ratio (1.1 - 2.2 %) 1.2 Urines Urine Color (YEL,AMB,STR) YEL Urine Clarity (CLEAR) CLDY H Urine pH (5.0 - 8.0) 6.5 Ur Specific [place] (1.001 - 1.035) 1.025 Urine Protein (NEG,<30 MG/DL) 100 H Urine Ketones (NEG) NEG Urine Nitrite (NEG) POS H Urine Bilirubin (NEG) NEG Urine Urobilinogen (0.1 - 1.0 EU/dl) 0.2 Ur Leukocyte Esterase (NEG) LARGE H Ur Microscopic SEDIMENT EXAMINED Urine WBC (0 - 2 /HPF) PACKD H Urine Hemoglobin (NEG) MOD H Urine Glucose (N MG/DL) NEG 06/30 06/30 1735 1725 Blood Gas pH (7.35 - 7.45 PH) 7.36 pCO2 (35 - 45 TORR) 73 *H pO2 (80 - 100 TORR) 58 L HCO3 (21 - 28 MEQ/L) 40 H ABG O2 Sat (Measured) (>96.0 %) 88.0 L P-50 (Temp Corrected) N Carboxyhemoglobin (1.5 - 5.0 %) 0.7 L O2 Concentration % 2L Temperature (97.0 - 100.0 FARH) 98.9 O2 Delivery Method DC Hematology CBC w Diff NO MAN DIFF REQ WBC (4.8 - 10.8 /CUMM) 11.9 H RBC (4.20 - 5.40 /CUMM) 3.03 L Hgb (12.0 - 16.0 G/DL) 9.5 L Hct (37 - 47 %) 29.2 L MCV (81.0 - 99.0 FL) 96.4 MCH (27.0 - 31.0 PG) 31.4 H RDW (11.5 - 14.5 %) 13.7 Plt Count (130 - 400 /CUMM) 305 MPV (7.4 - 10.4 FL) 6.2 L Gran % (42.2 - 75.2 %) 93.2 H Lymphocytes % (20.5 - 51.1 %) 2.5 L Monocytes % (1.7 - 9.3 %) 4.0 Eosinophils % (0 - 5 %) 0.3 Basophils % (0.0 - 2.0 %) 0 L Absolute Granulocytes (1.4 - 6.5 /CUMM) 11.1 H Absolute Lymphocytes (1.2 - 3.4 /CUMM) 0.3 L Absolute Monocytes (0.10 - 0.60 /CUMM) 0.5 Absolute Eosinophils (0.0 - 0.7 /CUMM) 0 Absolute Basophils (0.0 - 0.2 /CUMM) 0 PUBS MCHC (33.0 - 37.0 G/DL) 32.6 L Miscellaneous Phlebotomy Draw Site LEFT RADIAL Microbiology Date/Time Procedure - Status Source Growth 06/30 2214 Influenza Virus A & B Rapid Smear - COMP NASOPHARYN 06/30 2139 Respiratory Culture - RES LOWER RESP GRAM NEGATIVE RODS 06/30 2139 Gram Stain - RES LOWER RESP 06/30 1748 Legionella Antigen - COMP URINE ROUT 06/30 1748 Streptococcus pneumoniae Antigen (M - COMP URINE ROUT 06/30 1748 Urine Culture - RES URINE ROUT GRAM NEGATIVE RODS 06/30 174 Blood Culture - RES BLOOD 06/30 173 Blood Culture - RES BLOOD Vital Signs & I&O Last 24 Hrs of Vitals and I&O: Vital Signs Date Time Temp Pulse Resp B/P Pulse O2 O2 Flow FiO2 Ox Delivery Rate 07/02 0924 99 BIPAP 35% 07/02 0902 97.6 74 24 138/70 99 BIPAP 35% 07/02 0900 68 99 07/02 0303 77 96 07/02 0137 98.1 84 20 120/70 96 BIPAP 07/02 0015 77 97 07/02 0000 BIPAP 35% 07/01 2125 112 93 07/01 1900 97 Nasal 5.0L Cannula 07/01 1650 107 91 07/01 1630 98 Nasal 5.0L Cannula 07/01 1600 98.4 88 18 160/80 BIPAP 5.0L 07/01 1600 96 Nasal 35% Cannula 07/01 1442 93 07/01 1258 96 Intake & Output 07/02 1600 07/02 0800 07/02 0000 Intake Total 150 320 Output Total 50 Balance 150 270 Intake, IV 0 30 Intake, Oral 150 290 Number 0 Bowel Movements Output, Urine 50 Impression/Plan Impression/Plan Impression/Plan: SIGNIFICANT DATA Chest x-ray reviewed showed hyperinflated lung with COPD with interstitial changes stable since the last chest x-ray Blood work showed potassium was 5.4 bicarbonate 40 which has been chronically elevated White count 9.1 hemoglobin chronically low at 9.2 with significant left shift noted ABG reviewed which showed 7.40/62/70 on BiPAP Urine culture grew gram-negative [place] sputum cultures also growing gram-negative rods patient has had previous strep pneumo and staph aureus in the sputum Physical Exam General Appearance Alert, Oriented X3, Cooperative, Mild Distress Skin skin tear on right lateral calf with clean dry dressing HEENT PERRLA, EOMI, 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 Cardiovascular Regular Rate, Normal S1, Normal S2 Lungs b/l ronchii Abdomen Normal Bowel Sounds, Soft, No Tenderness Neurological Normal Speech, Strength at 5/5 X4 Ext, Normal Tone, Sensation Intact, Cranial Nerves 3-12 NL Extremities No Clubbing, No Cyanosis, No Edema IMPRESSION This is an elderly lady who has very severe COPD, significant bronchiectasis, recurrent bilateral pneumonitis with mucous plugging, worsening overall performance status, significant anxiety, on and off occasional chest discomfort, hyperlipidemia, hypertension, mild dementia and depression, diabetes and hypothyroidism * Acute hypoxemic and hypercarbic respiratory failure, due to end-stage lung disease with COPD and bronchiectasis with significant gram-negative rods in the sputum patient is high-risk for Pseudomonas bronchitis. * Severe COPD with ongoing exacerbation * Mild interstitial lung disease on top of her chronic lung disease * Ongoing chest discomfort probably related to respiratory distress with mild ST -T changes rule out acute myocardial ischemia * Urinary tract infection * Mild hyperkalemia * Protein energy malnutrition * Chronic anemia * Previous thickened esophagus in the CAT scan we GERD * Previous anxiety and depression with the tracheobronchomalacia with ongoing wheezing * Worsening performance status * Right lateral calf ulcer RECOMMENDATION * Continue BiPAP prn and keep off when pt tolerates it * Continue ceftazidime for now * Give one dose of Diamox 500 mg * Discontinue mucomyst after today * Continue albuterol nebulizer therapy around the clock every 6 hours * Continue prednisone or Solu-Medrol 40 mg every 12 for today and reduce it to every qd tomorrow * Continue other medications * Low-dose anxiolytic * If the patient isn't having significant worsening pain she would benefit from a very low dose morphine to reduce the work of breathing * Continue to monitor potassium * Heparin subcutaneous * Continue proton pump inhibitor Prognosis guarded
--- NOTE | 2016-07-02 12:25 | PN- Cardiology ---
Subjective Subjective: The patient looks more comfortable than yesterday. She is currently on nasal oxygen. She still has some audible wheezing. Her cardiac enzymes are negative. She has not had any arrhythmias. She is in sinus rhythm with occasional PAC on the monitor. Objective Vital Signs and I&Os Vital Signs Date Time Temp Pulse Resp B/P Pulse O2 O2 Flow FiO2 Ox Delivery Rate 07/02 0924 99 BIPAP 35% 07/02 0902 97.6 74 24 138/70 99 BIPAP 35% 07/02 0900 68 99 07/02 0800 97 BIPAP 35% 07/02 0303 77 96 07/02 0137 98.1 84 20 120/70 96 BIPAP 07/02 0015 77 97 07/02 0000 BIPAP 35% 07/01 2125 112 93 07/01 1900 97 Nasal 5.0L Cannula 07/01 1650 107 91 07/01 1630 98 Nasal 5.0L Cannula 07/01 1600 98.4 88 18 160/80 BIPAP 5.0L 07/01 1600 96 Nasal 35% Cannula 07/01 1442 93 07/01 1258 96 Intake & Output 07/02 1600 07/02 0800 07/02 0000 07/01 1600 07/01 0800 07/01 0000 Intake Total 150 320 375 600 400 Output Total 50 Balance 150 270 375 600 400 Intake, IV 0 30 375 600 400 Intake, Oral 150 290 0 0 0 Number 0 0 Bowel Movements Output, Urine 50 Patient 119 lb 119 lb Weight Physical Exam: She looks chronically ill in only mild respiratory distress Chest reveals moderate wheezing and rhonchi Heart reveals no murmurs, regular rhythm There is no peripheral edema Current Medications: Current Medications Sig/Teena Start time Last Medication Dose Route Stop Time Status Admin Acetaminophen 650 MG Q6P PRN 06/30 2044 AC PO Acetaminophen/ 1 TAB Q6P PRN 06/30 2044 AC Hydrocodone Bitart PO Acetazolamide 500 MG ONCE ONE 07/01 1600 DC 07/01 PO 07/01 1601 1852 Acetazolamide 500 MG ONCE ONE 07/01 1430 CAN Sodium Chloride 50 ML IV 07/01 1700 Acetylcysteine 2 ML BID 07/01 1000 DC 07/01 INH 2054 Albuterol Sulfate 3 ML EVERY 4 HRS/AWAKE 07/01 0800 AC 07/01 INH 2054 Budesonide/ 2 PUF BID 06/30 2200 AC 07/02 Formoterol Fumarate INH 0951 Ceftazidime 1,000 MG Q8 06/30 2200 AC 07/02 IV 0525 Citalopram 20 MG AT BEDTIME 06/30 220 AC 07/01 Hydrobromide PO 211 Dorzolamide HCl 2 GTT BID 06/30 2200 AC 07/02 OPH 0955 Gabapentin 200 MG BID 07/01 2200 AC 07/02 PO 0952 Heparin Sodium 5,000 UNIT Q8 06/30 220 AC 07/02 (Porcine) SC 0525 Insulin Aspart 0 TIDAC/HS 07/01 0800 AC 07/01 SC 1853 Lorazepam 0.5 MG 0900,1300 07/02 0900 AC 07/02 PO 07/09 0859 0956 Lorazepam 1 MG AT BEDTIME 07/01 2199 AC 07/01 PO 2116 Lorazepam 0.25 MG Q12 PRN 07/01 1430 DC IV Lorazepam 0.25 MG ONCE ONE 07/01 1415 DC 07/01 IV 07/01 1416 1511 Lorazepam 0.5 MG ONCE ONE 07/01 1015 CAN IV 07/01 1016 Melatonin 9 MG QPM 07/01 2200 AC 07/01 PO 2115 Methylprednisolone 40 MG 1800,0600 07/02 1800 AC IV Methylprednisolone 40 MG Q8 06/30 2200 DC 07/02 IV 07/02 0700 0526 Morphine Sulfate 1 MG Q6P PRN 07/01 1430 AC IV Nitroglycerin 0.5 GM Q6 07/01 1345 DC 07/01 TOP 1336 Nitroglycerin 0.2 MG ONCE ONE 07/01 1315 CAN TOP 07/01 1316 Omeprazole 40 MG DAILY AC 07/01 1530 AC 07/02 PO 0526 Oxycodone/ 2 TAB Q6P PRN 06/30 2045 AC Acetaminophen PO Pantoprazole Sodium 40 MG DAILY 07/01 1430 DC IV Tiotropium [place] 1 PUF DAILY 07/01 1000 AC 07/02 INH 0950 Vancomycin HCl 1,000 MG DAILY@07/01 2200 CAN Dextrose/Water 250 ML IV 07/01 2259 Vancomycin HCl 1,000 MG DAILY@06/30 2200 DC 06/30 Dextrose/Water 250 ML IV 220 Results Last 48 Hrs of Labs/Mics: Laboratory Tests 07/02/16 0638: Anion Gap 9, Estimated GFR > 60, BUN/Creatinine Ratio 32.5 H, Magnesium 1.9, CBC w Diff NO MAN DIFF REQ, RBC 2.81 L, MCV 96.2, MCH 32.0 H, RDW 13.4, MPV 6.9 L, Gran % 94.9 H, Lymphocytes % 1.9 L, Monocytes % 3.1, Eosinophils % 0.1 , Basophils % 0 L, Absolute Granulocytes 8.8 H, Absolute Lymphocytes 0.2 L, Absolute Monocytes 0.3, Absolute Eosinophils 0, Absolute Basophils 0, PUBS MCHC 33.2 07/02/16 0130: Troponin I 0.10 07/01/16 2030: Troponin I 0.07 07/01/16 1900: Troponin I Cancelled 07/01/16 1324: Troponin I < 0.01 07/01/16 0615: Anion Gap 9, Estimated GFR > 60, BUN/Creatinine Ratio 26.7 H, CBC w Diff NO MAN DIFF REQ, RBC 2.88 L, MCV 96.6, MCH 31.9 H, RDW 13.5, MPV 6.4 L, Gran % 97.5 H, Lymphocytes % 2.1 L, Monocytes % 0.4 L, Eosinophils % 0, Basophils % 0 L, Absolute Granulocytes 8.9 H, Absolute Lymphocytes 0.2 L, Absolute Monocytes 0 L, Absolute Eosinophils 0, Absolute Basophils 0, PUBS MCHC 33.0 07/01/16 0600: pH 7.40, pCO2 62 *H, pO2 70 L, HCO3 38 H, ABG O2 Sat (Measured) 94.0 L, P-50 (Temp Corrected) N, Carboxyhemoglobin 0.06 L, O2 Concentration % .35, Respiration Rate 26, O2 Delivery Method BIPAP, Vent Mode ST, Expiratory Pressure 6, Inspiratory Pressure 16, Phlebotomy Draw Site RIGHT RADIAL 07/01/16 0200: pH 7.35, pCO2 70 *H, pO2 72 L, HCO3 38 H, ABG O2 Sat (Measured) 94.0 L, P-50 (Temp Corrected) N, Carboxyhemoglobin 0.9 L, O2 Concentration % .35, Respiration Rate 26, O2 Delivery Method BIPAP, Vent Mode ST, Expiratory Pressure 6, Inspiratory Pressure 16, Phlebotomy Draw Site RIGHT RADIAL 06/30/16 2240: pH 7.33 L, pCO2 80 *H, pO2 80, HCO3 42 H, ABG O2 Sat (Measured) 95.0 L, P-50 (Temp Corrected) N, Carboxyhemoglobin 0.7 L, O2 Concentration % 2L, Temperature 98.9, O2 Delivery Method NC, Phlebotomy Draw Site RIGHT RADIAL 06/30/162039: Lactic Acid 1.0 06/30/161825: Anion Gap 5, Estimated GFR > 60, BUN/Creatinine Ratio 25.0, Glucose 142 H, Hemoglobin A1c 5.3, Lactic Acid 1.3, Calcium 9.5, Total Bilirubin 0.4, AST 20, ALT 27, Alkaline Phosphatase 75, Troponin I 0.02, Total Protein 6.3, Albumin 3.4 L, Globulin 2.9, Albumin/Globulin Ratio 1.2 06/30/161748: Urine Color YEL, Urine Clarity CLDY H, Urine pH 6.5, Ur Specific [place] 1.025, Urine Protein 100 H, Urine Ketones NEG, Urine Nitrite POS H, Urine Bilirubin NEG, Urine Urobilinogen 0.2, Ur Leukocyte Esterase LARGE H, Ur Microscopic SEDIMENT EXAMINED, Urine WBC PACKD H, Urine Hemoglobin MOD H, Urine Glucose NEG 06/30/16 173: CBC w Diff NO MAN DIFF REQ, RBC 3.03 L, MCV 96.4, MCH 31.4 H, RDW 13.7, MPV 6.2 L, Gran % 93.2 H, Lymphocytes % 2.5 L, Monocytes % 4.0, Eosinophils % 0.3 , Basophils % 0 L, Absolute Granulocytes 11.1 H, Absolute Lymphocytes 0.3 L, Absolute Monocytes 0.5, Absolute Eosinophils 0, Absolute Basophils 0, PUBS MCHC 32.6 L 06/30/16 172: pH 7.36, pCO2 73 *H, pO2 58 L, HCO3 40 H, ABG O2 Sat (Measured) 88.0 L, P-50 (Temp Corrected) N, Carboxyhemoglobin 0.7 L, O2 Concentration % 2L, Temperature 98.9, O2 Delivery Method NC, Phlebotomy Draw Site LEFT RADIAL Microbiology 06/30 2214 NASOPHARYN: Influenza Virus A & B Rapid Smear - COMP 06/30 1748 URINE ROUT: Legionella Antigen - COMP 06/30 1748 URINE ROUT: Streptococcus pneumoniae Antigen (M - COMP 06/30 1748 URINE ROUT: Urine Culture - COMP PSEUDOMONAS AERUGINOSA Assessment/Plan Assessment/Plan The patient is very slowly improving from a respiratory standpoint. Her EKGs and enzymes were negative for any myocardial ischemia/damage. I don't think there is any cardiac component to her symptoms at this time. I think she can be managed off of telemetry. Please call for any further cardiac input. Continue telemetry? No
--- NOTE | 2016-07-02 12:52 | ECHOCARDIOGRAM REPORT ---
October Age: 86 : 1930 Gender: F Exam Date: 07/01/2016 19:51 Exam Location: [address] Ht (in): 64 Wt (lb): 118 BSA: 1.55 BP: 110 / 60 Ordering Physician: CARMELO WHITNEY MD Referring Physician: Ronnell Pastrana MD Chief, SoC Technologist: Cecy Hinojosa [facility] Room Number: 185-02 Indications: CHEST PAIN Rhythm: Sinus Technical Quality: Fair FINDINGS Left Ventricle Normal size left ventricle. Mild concentric left ventricular hypertrophy. Normal left ventricular ejection fraction visually estimated at >65 %. Abnormal relaxation filling pattern of the left ventricle for age (stage 1 diastolic dysfunction). Right Ventricle The right ventricle is normal in size and function. Right Atrium The right atrium is normal in size. Left Atrium Left atrial size at the upper limits of normal. Mitral Valve Mild thickening/calcification of the mitral valve leaflets. Mild mitral annular calcification. Mild mitral regurgitation. Aortic Valve Focal thickening of the aortic valve cusps. No aortic stenosis. No aortic regurgitation. Tricuspid Valve Structurally normal tricuspid valve. Trace to mild tricuspid regurgitation. Right ventricular systolic pressure estimated to be at upper limits of normal at 30-35 mmHg. Pulmonic Valve Pulmonic valve not well visualized, grossly normal. No pulmonic regurgitation. Pericardium Normal pericardium without effusion. No pleural effusion. Great Vessels Normal aortic root dimension. The aortic arch and great vessels are well seen and are normal. CONCLUSIONS Mild concentric left ventricular hypertrophy. Normal left ventricular ejection fraction visually estimated at >65 Abnormal relaxation filling pattern of the left ventricle for age (stage 1 diastolic dysfunction). Left atrial size at the upper limits of normal. Mild thickening/calcification of the mitral valve leaflets. Mild mitral annular calcification. Mild mitral regurgitation. Focal thickening of the aortic valve cusps. No aortic stenosis. Right ventricular systolic pressure estimated to be at upper limits of normal at 30-35 mmHg. Ronnell Pastrana M.D. (Electronically Signed) Final Date: 02 July 2016 12:51 MEASUREMENTS (Male / Female) Normal Values 2D ECHO LV Diastolic Diameter PLAX 3.7 cm 4.2 - 5.9 / 3.9 - 5.3 cm LV Systolic Diameter PLAX 2.2 cm 2.1 - 4.0 cm LV Fractional Shortening PLAX 40.5 % 25 - 46 % LV Ejection Fraction 2D Teich 72.1 % IVS Diastolic Thickness 1.2 cm LVPW Diastolic Thickness 1.1 cm LV Relative Wall Thickness 0.6 RV Internal Dim ED PLAX 2.4 cm 1.9 - 3.8 cm LVOT Diameter 1.9 cm Aortic Root Diameter 2.8 cm LA Systolic Diameter LX 3.2 cm 3.0 - 4.0 / 2.7 - 3.8 cm LA Volume 44.0 cm 18 - 58 / 22 - 52 cm Ascending Aorta Diameter 3.1 cm DOPPLER AV Peak Velocity 178.0 cm/s AV Peak Gradient 12.7 mmHg AV Mean Velocity 115.0 cm/s AV Mean Gradient 6.0 mmHg AV Velocity Time Integral 26.9 cm LVOT Peak Velocity 117.0 cm/s LVOT Peak Gradient 5.5 mmHg LVOT Mean Velocity 72.1 cm/s LVOT Mean Gradient 3.0 mmHg LVOT Velocity Time Integral 21.6 cm LVOT Stroke Volume 61.2 cm AV Area Cont Eq vti 2.3 cm AV Area Cont Eq pk 1.9 cm MV Peak Velocity 165.0 cm/s MV Peak Gradient 10.9 mmHg MV Mean Velocity 87.6 cm/s MV Mean Gradient 4.0 mmHg Mitral E Point Velocity 75.5 cm/s Mitral A Point Velocity 110.0 cm/s Mitral E to A Ratio 0.7 MV PHT Velocity 103.0 cm/s MV Deceleration [place] 587.0 cm/s MV Pressure Half Time 52.6 ms MV Area PHT 4.2 cm MV Deceleration Time 151.0 ms TR Peak Velocity 265.0 cm/s TR Peak Gradient 28.1 mmHg Right Atrial Pressure 5.0 mmHg Pulmonary Artery Systolic Pressu 33.1 mmHg Right Ventricular Systolic Press 33.1 mmHg PV Peak Velocity 117.0 cm/s PV Peak Gradient 5.5 mmHg PV Mean Velocity 73.2 cm/s PV Mean Gradient 3.0 mmHg PV Velocity Time Integral 19.9 cm LV E' Lateral Velocity 8.3 cm/s Mitral E to LV E' Lateral Ratio 9.1 LV E' Septal Velocity 7.8 cm/s Mitral E to LV E' Septal Ratio 9.6
[2016-07-02 15:30] VITALS: BP 118/68
--- NOTE | 2016-07-03 06:58 | PN- Housestaff ---
CHELO TAYLOR,CARMELO 07/03/16 0658: Subjective Follow-up For: PSEUDOMONAS PNA Tele-Events Since Last Visit: SB 45-60 PVCs sat 95-99% Subjective: When pt was seen this morning, she was still on bipap with respiratory present at bedside. bipap subsequently removed and pt placed on 3L o2 NC saturating at 96%. formal swallow eval done yesterday, and recommended puree and thin. she ate 10% of her breakfast and lunch, 50% of her dinner. pt is feeling improved; sob and cough improved. no productive sputum. chest pain has resolved. she is not obviously anxious this morning. she was able to get some sleep last night. K noted to continue to trend down from 4.4 to 3.8, will give 1 X 40 kdur. pt has no documented BM since admission, ordered bowel regimen. BUN continues to trend up, probably due to poor po intake. will encourage po intake. noted further drop in h/h, stool guaiac not done because pt has not had BM. Review of Systems Constitutional: Denies: chills, fever. EENTM: Denies: visual changes. Cardiovascular: Denies: chest pain. Respiratory: Reports: cough, short of breath. Denies: sputum production. Gastrointestinal: Denies: abdominal pain. Objective Last 24 Hrs of Vital Signs/I&O Vital Signs Date Time Temp Pulse Resp B/P Pulse O2 O2 Flow FiO2 Ox Delivery Rate 07/03 0758 96 Nasal 3.0L Cannula 07/03 0757 96 07/03 0554 50 98 07/03 0241 59 95 07/03 0106 61 97 07/03 0000 97 BIPAP 07/02 2200 72 98 07/02 1635 98 Nasal 4.0L Cannula 07/02 1600 Nasal 5.0L Cannula 07/02 1530 98.1 107 18 118/68 97 Nasal 5.0L Cannula 07/02 0924 99 BIPAP 35% 07/02 0902 97.6 74 24 138/70 99 BIPAP 35% 07/02 0900 68 99 Intake & Output 07/03 1600 07/03 0800 07/03 0000 Intake Total 0 610 Output Total Balance 0 610 Intake, IV 10 Intake, Oral 0 600 Physical Exam General Appearance: Alert, Oriented X3, Cooperative, No Acute Distress Skin: skin changes present on admission. bruises on both arms HEENT: Atraumatic Cardiovascular: Regular Rate, Normal S1, Normal S2 Lungs: could not appreciate wheezing. also difficult to assess due to the noise from bipap. Abdomen: Normal Bowel Sounds, Soft, No Tenderness Neurological: Normal Speech Extremities: No Edema Current Medications: Current Medications Sig/Teena Start time Last Medication Dose Route Stop Time Status Admin Acetaminophen 650 MG Q6P PRN 06/30 204 AC PO Acetaminophen/ 1 TAB Q6P PRN 06/30 2045 AC Hydrocodone Bitart PO Acetazolamide 500 MG ONCE ONE 07/02 1315 DC 07/02 PO 07/02 1316 1426 Acetylcysteine 2 ML BID 07/02 1315 DC 07/03 INH 07/02 220 0754 Albuterol Sulfate 3 ML EVERY 4 HRS/AWAKE 07/01 0800 AC 07/03 INH 0756 Budesonide/ 2 PUF BID 06/30 2200 AC 07/02 Formoterol Fumarate INH 2126 Ceftazidime 1,000 MG Q8 06/30 2200 AC 07/03 IV 0625 Citalopram 20 MG AT BEDTIME 06/30 2200 AC 07/02 Hydrobromide PO 2125 Dorzolamide HCl 2 GTT BID 06/30 2200 AC 07/02 OPH 2126 Gabapentin 200 MG BID 07/01 2200 AC 07/02 PO 2125 Heparin Sodium 5,000 UNIT Q8 06/30 2200 AC 07/03 (Porcine) SC 0626 Insulin Aspart 0 TIDAC/HS 07/01 0800 AC 07/02 SC 1740 Lorazepam 0.5 MG 0900,1300 07/02 0900 AC 07/02 PO 03/ 0859 1426 Lorazepam 1 MG AT BEDTIME 07/01 2200 AC 07/02 PO 2125 Melatonin 9 MG QPM 07/01 2200 AC 07/02 PO 2125 Methylprednisolone 40 MG 1800,0600 07/02 1800 AC 07/03 IV 0628 Morphine Sulfate 1 MG Q6P PRN 07/01 1430 AC IV Omeprazole 40 MG DAILY AC 07/01 1530 AC 07/03 PO 0629 Oxycodone/ 2 TAB Q6P PRN 06/30 2045 AC Acetaminophen PO Patient Medication 1 ED ONE ONE 07/02 1400 DC Teaching ED 07/02 1401 Tiotropium [place] 1 PUF DAILY 07/01 1000 AC 07/02 INH 0950 Last 24 Hrs of Lab/[place] Results Last 24 Hrs of Labs/Mics: Laboratory Tests 07/03/16 0635: Anion Gap 8, Estimated GFR > 60, BUN/Creatinine Ratio 37.5 H, CBC w Diff Pending, WBC Pending, RBC Pending, Hgb Pending, Hct Pending, MCV Pending, MCH Pending, RDW Pending, Plt Count Pending, MPV Pending, Gran % Pending, Lymphocytes % Pending, Monocytes % Pending, Eosinophils % Pending, Basophils % Pending, Absolute Granulocytes Pending, Absolute Lymphocytes Pending, Absolute Monocytes Pending, Absolute Eosinophils Pending, Absolute Basophils Pending, PUBS MCHC Pending Assessment/Plan Assessment: 86-year-old lady with a history of COPD with 2 L home O2, ILD, tracheobronchomalacia, depression, resident of assisted living facility ([facility]) for CC of altered mental status, tactile fevers, hypoxia, increased dyspnea, cough productive of green sputum increased O2 requirement to 3.5L, + flu contact. She was admitted to telemetry for continuous pulse ox monitoring, and treated for acute on chronic hypercapneic and hypoxic respiratoryu failure due to COPD exacerbation and possible healthcare acquired pneumonia. Flu was negative. She was started on bipap. Problem list: # Acute on chronic hypercarbic and hypoxic respiratory failure most likely due to Pseudomonas PNA and COPD exacerbation # Acute substernal chest pain in the settings of respiratory distress (resolved) # AMS (resolved) # Asymptomatic urinary tract infection # Mild Hyperkalemia on admission (improved) # Protein calorie malnutrition, poor po intake # Bradycardia # Chronic anemia # Right calf ulcer in dry sterile dressing # Acute on chronic hypercarbic and hypoxic respiratory failure most likely due to Pseudomonal PNA and COPD exacerbation - CXR: Hyperinflated lung field secondary to COPD emphysematous changes somewhat nodular interstitial changes on the left base stable since 06/06/2015. - Leukocytosis (11.9) with left shift, no bands , improved to 6.9 - ABG admission : 7.36/73H/58L/40H - ABG on BIPAP : 7.40/62H/70L/38H - AMS on admission, now improved * Follow Min culture; blood cultures NGTD, urine strep and Legionella antigen negative, sputum culture (PANSENSITIVE PSEUDOMONAS and staph aureus) * DC'd vanco after 1 dose. Ceftazidime changed to cipro 500 bid on day # 3 to complete total 10 days of abx * IV Solu-Medrol 40 daily --> prednisone 40 mg tomorrow, taper 10 mg q 3 days * Discontinued mucomyst after 2 days * Diamox X 1 given 07/01, 07/02. Monitor bicarb on daily labs * Continue on BiPAP as needed (nocturnal) * Continue home Ativan 1 mg at bedtime, 0.5 mg at 9am and 1pm. HOLD IF DROWSY. * Continuous pulse ox * TRC evaluation, total pulmonary toilet * Pulm consult with Dr. Jewell appreciated * Continue albuterol. Hold spiriva. * Ambulate pt as tolerated, physical therapy, OT. # Acute substernal chest pain in the settings of respiratory distress could be suggestive of demand ischemia - Jun 2016 echocardiogram: Normal left ventricular ejection fraction visually estimated at >65. Abnormal relaxation filling pattern of the left ventricle for age (stage 1 diastolic dysfunction). * Serial trops and EKG X 3 negative for ACS * Follow up Dr. Pastrana (cardiology) recommendation * Nitropaste 0.5 X 1 given * 1mg morphine IV q6prn difficulty breathing # Bradycardia at night - No associated chest discomfort, heart rate in the morning 60s-70s * Continue to monitor on telemetry * F/U with cardiology if it persists # UTI on UA but pt asymptomatic * Follow urine culture (pansensitive pseudomonas) * Already on abx for HCAP that would adequately cover UTI # Mild Hyperkalemia on admission (improved) - On admission 5.4, down to 4.4, then 3.8, given 1X 40 Kdur * Monitor K # Protein calorie malnutrition, poor po intake - BUN increasing most likely due to poor po intake * Encourage po intake * Monitor BUN # Constipation - no documented BM since admission * Ordered miralax,docusate,senna # Chronic anemia - H/H continues to drop from 9.5 (on admission) to 8.5 - Hx of positive stool guiaiac * Monitor h/h * follow up stool guaiac * sc heparin discontinued 07/03 # Right calf ulcer in dry sterile dressing * Wound consult appreciated # DM - hba1c 5.3 * accucheck and novolog ss tidac/qhs # Continue * Celexa * Ativan and gabapentin * Omeprazole 40 mg daily Diet: CC2 puree DVT ppx: SC heparin discontinued due to dropping h/h. ALPs not used due to lower extremity pain DNR/DNI Problem List: 1. Pseudomonas pneumonia Pain Ratin Pain Location: none Pain Goal: Remain pain free Pain Plan: none Tomorrow's Labs & Rationales: bep for hypokalemia, rising bun mag for PVCs cbc for dropping h.h LATISHA TAYLOR,ANUSHKA 07/03/16 1225: Attending MD Review Statement Attending Statement Attending MD Statement: examined this patient, discuss w/resident/PA/DISTRIBUTION MANAGER, agreed w/resident/PA/DISTRIBUTION MANAGER, reviewed EMR data (avail), discussed with nursing, discussed with case mgmt, amended to note Attending Assessment/Plan: Patient seen and examined. Lethargic but oriented 3. She did well off BiPAP therapy all through yesterday. She required BiPAP poorly at night and it was stopped earlier this morning. Swelling evaluation was done yesterday and recommendations are for. Diet with thin liquids. Her oral intake has not been impressive. She denies any chest pain. She denies shortness of breath. She appears less anxious today. Physical therapy did attempt to mobilize her to the chair today but she became even more fatigued. On examination she has markedly diminished rhonchi bilaterally. Recommendations: -Continue bronchodilator therapy. -Continue prednisone 40 mg orally daily. Taper by 10 mg every 3 days. -Continue physical therapy as tolerated. -Continue to monitor of BiPAP during the day. However if patient becomes increasingly lethargic recommend repeating an ABG and placing patient on BiPAP therapy if she is retaining CO2 significantly. -Begin discharge planning if she continues to improve clinically
[2016-07-03 08:00] VITALS: BP 112/60
[2016-07-03 08:03] LABS: ABSOLUTE BASOPHIL COUNT 0 /CUMM (0.0-0.2); ABSOLUTE EOSINOPHIL COUNT 0 /CUMM (0.0-0.7); ABSOLUTE LYMPH COUNT 0.2 /CUMM (1.2-3.4); ABSOLUTE MONOCYTE COUNT 0.7 /CUMM (0.10-0.60); BASOPHIL % 0 % (0.0-2.0); EOSINOPHIL % 0 % (0-5); GRANULOCYTE % 86.8 % (42.2-75.2); MEAN CORPUSCULAR HGB 31.5 PG (27.0-31.0); MEAN CORPUSCULAR HGB CONC 32.8 G/DL (33.0-37.0); MEAN CORPUSCULAR VOLUME 96.2 FL (81.0-99.0); MEAN PLATELET VOLUME 6.5 FL (7.4-10.4); PLATELET COUNT 246 /CUMM (130-400); RBC DISTRIBUTION WIDTH 13.7 % (11.5-14.5)
[2016-07-03 09:26] LABS: WHITE BLOOD CELL COUNT 6.9 /CUMM (4.8-10.8)
[2016-07-03] MEDS ORDERED: CIPRO500 M1 PO (09:30)
--- NOTE | 2016-07-03 09:31 | PN- Pulmonary ---
Subjective HPI/Critical Care Issues: On 3L o2 NC saturating at 96%. sleepy formal swallow eval done yesterday, and recommended puree and thin. she ate 10% of her breakfast and lunch, 50% of her dinner. pt is feeling improved; sob and cough improved. no productive sputum. chest pain has resolved. she is not obviously anxious this morning. she was able to get some sleep last night. K noted to continue to trend down from 4.4 to 3.8, will give 1 X 40 kdur. pt has no documented BM since admission, ordered bowel regimen. BUN continues to trend up, probably due to poor po intake. will encourage po intake. Review of Systems Constitutional: Denies: chills, fever. EENTM: Denies: visual changes. Cardiovascular: Denies: chest pain. Respiratory: Reports: cough, short of breath. Denies: sputum production. Gastrointestinal: Denies: abdominal pain. Objective Current Medications: Current Medications Sig/Teena Start time Last Medication Dose Route Stop Time Status Admin Acetaminophen 650 MG Q6P PRN 06/30 204 AC PO Acetaminophen/ 1 TAB Q6P PRN 06/30 204 AC Hydrocodone Bitart PO Acetazolamide 500 MG ONCE ONE 07/02 1315 DC 07/02 PO 07/02 1316 1426 Acetylcysteine 2 ML BID 07/02 1315 DC 07/03 INH 07/02 2201 0754 Albuterol Sulfate 3 ML EVERY 4 HRS/AWAKE 07/01 0800 AC 07/03 INH 0756 Budesonide/ 2 PUF BID 06/30 2200 AC 07/03 Formoterol Fumarate INH 0859 Ceftazidime 1,000 MG Q8 06/30 2200 DC 07/03 IV 0625 Ciprofloxacin 500 MG BID 07/03 1000 UNVr PO 07/07 0959 Citalopram 20 MG AT BEDTIME 06/300 AC 07/02 Hydrobromide PO 2125 Docusate Sodium 100 MG BID 07/03 1000 AC PO Dorzolamide HCl 2 GTT BID 06/30 220 AC 07/03 OPH 0859 Gabapentin 200 MG BID 07/01 2200 AC 07/03 PO 0858 Heparin Sodium 5,000 UNIT Q8 06/30 2200 AC 07/03 (Porcine) SC 0626 Insulin Aspart 0 TIDAC/HS 07/01 0800 AC 07/02 SC 1740 Lorazepam 0.5 MG 0900,1300 07/02 0900 r 07/02 PO 07/09 0859 1426 Lorazepam 1 MG AT BEDTIME 07/01 2200 AC 07/02 PO 2125 Melatonin 9 MG QPM 07/01 2200 AC 07/02 PO 2125 Methylprednisolone 40 MG DAILY 07/04 1000 CAN IV Methylprednisolone 40 MG 1800,0600 07/02 1800 DC 07/03 IV 0628 Morphine Sulfate 1 MG Q6P PRN 07/01 1430 AC IV Omeprazole 40 MG DAILY AC 07/01 1530 AC 07/03 PO 0629 Oxycodone/ 2 TAB Q6P PRN 06/30 2045 AC Acetaminophen PO Patient Medication 1 ED ONE ONE 07/02 1400 DC Teaching ED 07/02 1401 Polyethylene Glycol 17 GM DAILY 07/03 1000 AC PO Potassium Chloride 40 MEQ ONCE ONE 07/03 0830 DC PO 07/03 0831 Prednisone 60 MG DAILY 07/04 1000 UNVr PO 07/06 1001 Senna 187 MG AT BEDTIME 07/03 2200 AC PO Tiotropium [place] 1 PUF DAILY 07/01 1000 AC 07/03 INH 0858 Vital Signs & I&O Last 24 Hrs of Vitals and I&O: Vital Signs Date Time Temp Pulse Resp B/P Pulse O2 O2 Flow FiO2 Ox Delivery Rate 07/03 08 98.0 80 20 112/60 96 BIPAP 35% 07/03 0758 96 Nasal 3.0L Cannula 07/03 0757 96 07/03 0554 50 98 07/03 0241 59 95 07/03 0106 61 97 07/03 0000 97 BIPAP 07/02 2200 72 98 07/02 1635 98 Nasal 4.0L Cannula 07/02 1600 Nasal 5.0L Cannula 07/02 1530 98.1 107 18 118/68 97 Nasal 5.0L Cannula Intake & Output 07/03 1600 07/03 0800 07/03 0000 Intake Total 0 610 Output Total Balance 0 610 Intake, IV 10 Intake, Oral 0 600 Impression/Plan Impression/Plan Impression/Plan: SIGNIFICANT DATA Chest x-ray reviewed showed hyperinflated lung with COPD with interstitial changes stable since the last chest x-ray Blood work showed potassium was 5.4 bicarbonate 40 which has been chronically elevated White count 9.1 hemoglobin chronically low at 9.2 with significant left shift noted ABG reviewed which showed 7.40/62/70 on BiPAP Urine culture grew gram-negative kalpana sputum cultures also growing gram-negative rods patient has had previous strep pneumo and staph aureus in the sputum Physical Exam General Appearance Alert, Oriented X3, Cooperative, Mild Distress Skin skin tear on right lateral calf with clean dry dressing HESUSAN COLLINS, EOMI, 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 Cardiovascular Regular Rate, Normal S1, Normal S2 Lungs b/l ronchii Abdomen Normal Bowel Sounds, Soft, No Tenderness Neurological Normal Speech, Strength at 5/5 X4 Ext, Normal Tone, Sensation Intact, Cranial Nerves 3-12 NL Extremities No Clubbing, No Cyanosis, No Edema IMPRESSION This is an elderly lady who has very severe COPD, significant bronchiectasis, recurrent bilateral pneumonitis with mucous plugging, worsening overall performance status, significant anxiety, on and off occasional chest discomfort, hyperlipidemia, hypertension, mild dementia and depression, diabetes and hypothyroidism * Resolving Acute hypoxemic and hypercarbic respiratory failure, due to end- stage lung disease with COPD and bronchiectasis with significant gram-negative rods in the sputum patient is high-risk for Pseudomonas bronchitis. * Severe COPD with ongoing exacerbation * Mild interstitial lung disease on top of her chronic lung disease * Ongoing chest discomfort probably related to respiratory distress with mild ST -T changes rule out acute myocardial ischemia * Urinary tract infection * Mild hyperkalemia * Protein energy malnutrition * Chronic anemia * Previous thickened esophagus in the CAT scan we GERD * Previous anxiety and depression with the tracheobronchomalacia with ongoing wheezing * Worsening performance status * Right lateral calf ulcer RECOMMENDATION * Continue BiPAP prn and keep off when pt tolerates it * Can Change to po cipro * Continue albuterol nebulizer therapy around the clock every 6 hours * Change to po prednisone 40 and taper in 10 days from am * Continue other medications * If the patient isn't having significant worsening pain she would benefit from a very low dose morphine to reduce the work of breathing * Continue to monitor potassium * Heparin subcutaneous * Continue proton pump inhibitor Prognosis guarded
[2016-07-03] MEDS ORDERED: PREDNISONE10 M2 PO (09:32)
--- NOTE | 2016-07-03 09:35 | Patient Discharge Instructions ---
Discharge Instructions General Discharge Information You were seen/treated for: Acute hypoxemic and hypercarbic respiratory failure. COPD exacerbation Special Instructions: -Pt's daughter will speak to hospice care at [facility] regarding going back to hospice and do no rehospitalize. -Pt had guaiac positive stool with drop in h/h, however no EGD or colonoscopy planned given current respiratory status. -Please follow up with your PCP within a week of discharge. -Please follow up with outsole scheduler, Dr. Jewell with a medical discharge. -Please follow-up with wound care as outpatient. -Please return to the hospital if your symptoms not improved/worsened. -Please take your medications as instructed. Diet Continue normal diet: Yes Recommended Diet: Puree diabetic diet Activity Full Activity/No Limits: Yes Acute Coronary Syndrome Inclusion Criteria At DC or during hospital stay patient has or had the following: ACS DIAGNOSIS No Discharge Core Measures Meds if any: Prescribed or Continued at Discharge Meds if any: NOT Prescribed or Continued at Discharge Congestive Heart Failure Inclusion Criteria At DC or during hospital stay patient has or had the following: CHF DIAGNOSIS No Discharge Core Measures Meds if any: Prescribed or Continued at Discharge Meds if any: NOT Prescribed or Continued at Discharge Cerebrovascular accident Inclusion Criteria At DC or during hospital stay patient has or had the following: CVA/TIA Diagnosis No Discharge Core Measures Meds if any: Prescribed or Continued at Discharge Meds if any: NOT Prescribed or Continued at Discharge Venous thromboembolism Inclusion Criteria VTE Diagnosis No VTE Type NONE VTE Confirmed by (Test) NONE Discharge Core Measures - Per Current guidelines, there needs to be overlap - treatment for the first 5 days of Warfarin therapy. - If discharged on Warfarin prior to 5 days of - overlap therapy, the patient will need to be - assessed for post discharge needs including - *Post discharge parental anticoagulation - *Warfarin and/or parental anticoagulation education - *Follow up date to check INR post discharge At least 5 days overlap therapy as Inpatient No Meds if any: Prescribed or Continued at Discharge Note: Overlap Therapy is Warfarin and Anticoagulant Meds if any: NOT Prescribed or Continued at Discharge
--- NOTE | 2016-07-03 11:11 | NUR ---
Physical Therapy - Pt very lethargic today, per nursing did not do well with OT and not appropriate for PT intervention at this time. Will f/u as pt better able to participate.
[2016-07-03 16:20] VITALS: BP 118/62
[2016-07-04 00:28] VITALS: BP 100/60
--- NOTE | 2016-07-04 06:55 | PN- Housestaff ---
CHELO TAYLOR,CARMELO 07/04/16 0655: Subjective Follow-up For: PSEUDOMONAS bronchitis/pna Tele-Events Since Last Visit: SR 62-79. HR as low as 55. Subjective: Pt was seen and examined this morning, she was asleep on 3L o2 via NC. Although she is drowsy, she appears very comfortable in no respiratory distress. She answers appropriately to questions. She did not offer any complains. she still has not had BM despite bowel regimen, will give 1X milk mag. Review of Systems Constitutional: Reports: see HPI. Denies: chills, fever. Objective Last 24 Hrs of Vital Signs/I&O Vital Signs Date Time Temp Pulse Resp B/P Pulse O2 O2 Flow FiO2 Ox Delivery Rate 07/04 0028 97.9 80 20 100/60 97 Nasal Cannula 07/04 0000 95 Nasal 3.0L Cannula 07/03 2130 94 Nasal 2.5L Cannula 07/03 1900 98 Nasal 3.0L Cannula 07/03 1620 98.0 80 20 118/62 98 Nasal 3.0L Cannula 07/03 1600 Nasal 3.0L Cannula 07/03 1419 92 Nasal 3.0L Cannula 07/03 1405 94 Nasal 2.0L Cannula 07/03 0800 97 Nasal 5.0L Cannula 07/03 0800 98.0 80 20 112/60 96 BIPAP 35% 07/03 0758 96 Nasal 3.0L Cannula 07/03 0757 96 Intake & Output 07/04 0800 07/04 0000 07/03 1600 Intake Total 960 500 Output Total 400 Balance 560 500 Intake, IV 20 Intake, Oral 960 480 Output, Urine 400 Physical Exam General Appearance: drowsy but arousable Cardiovascular: Regular Rate, Normal S1, Normal S2 Lungs: Clear to Auscultation, Normal Air Movement Abdomen: Normal Bowel Sounds, Soft, No Tenderness Current Medications: Current Medications Sig/Teena Start time Last Medication Dose Route Stop Time Status Admin Acetaminophen 650 MG Q6P PRN 06/30 2044 AC PO Acetaminophen/ 1 TAB Q6P PRN 06/30 2044 AC Hydrocodone Bitart PO Albuterol Sulfate 3 ML TID 07/03 2199 AC 07/03 INH 1900 Albuterol Sulfate 3 ML EVERY 4 HRS/AWAKE 07/01 0800 DC 07/03 INH 1342 Budesonide/ 2 PUF BID 06/30 2199 AC 07/03 Formoterol Fumarate INH 2111 Ceftazidime 1,000 MG Q8 06/30 2200 DC 07/03 IV 0625 Ciprofloxacin 500 MG BID 07/03 1000 AC 07/03 PO 07/07 0959 2112 Citalopram 20 MG AT BEDTIME 06/30 2199 AC 07/03 Hydrobromide PO 2111 Docusate Sodium 100 MG BID 07/03 1000 AC 07/03 PO 211 Dorzolamide HCl 2 GTT BID 06/30 2199 AC 07/03 OPH 2112 Gabapentin 200 MG BID 07/01 220 AC 07/03 PO 211 Heparin Sodium 5,000 UNIT Q8 06/30 220 DC 07/03 (Porcine) SC 0626 Insulin Aspart 0 TIDAC/HS 07/01 0800 AC 07/03 SC 211 Lorazepam 0.5 MG 0900,1300 07/02 0900 AC 07/02 PO 07/09 0859 1426 Lorazepam 1 MG AT BEDTIME 07/01 2200 AC 07/03 PO 211 Magnesium Hydroxide 30 ML ONE ONE 07/04 0730 UNVr PO 07/04 0731 Melatonin 9 MG QPM 07/01 2200 AC 07/03 PO 2112 Methylprednisolone 40 MG DAILY 07/04 1000 CAN IV Methylprednisolone 40 MG 1800,0600 07/02 1800 DC 07/03 IV 0628 Morphine Sulfate 1 MG Q6P PRN 07/01 1430 AC IV Omeprazole 40 MG DAILY AC 07/01 1530 AC 07/04 PO 0601 Oxycodone/ 2 TAB Q6P PRN 06/30 2045 AC Acetaminophen PO Polyethylene Glycol 17 GM DAILY 07/03 1000 AC 07/03 PO 1228 Potassium Chloride 40 MEQ ONCE ONE 07/03 0830 DC 07/03 PO 07/03 0831 1228 Prednisone 40 MG DAILY 07/04 1000 AC PO 07/06 1001 Senna 187 MG AT BEDTIME 07/03 2200 AC 07/03 PO 2113 Tiotropium [place] 1 PUF DAILY 07/01 1000 AC 07/03 INH 0858 Last 24 Hrs of Lab/Augustin Results Last 24 Hrs of Labs/Mics: Laboratory Tests 07/04/16 0622: Sodium Pending, Potassium Pending, Chloride Pending, Carbon Dioxide Pending, Anion Gap Pending, BUN Pending, Creatinine Pending, BUN/Creatinine Ratio Pending , Magnesium Pending, CBC w Diff Pending, WBC Pending, RBC Pending, Hgb Pending, Hct Pending, MCV Pending, MCH Pending, RDW Pending, Plt Count Pending, MPV Pending, PUBS MCHC Pending Assessment/Plan Assessment: 86-year-old lady with a history of COPD with 2 L home O2, ILD, tracheobronchomalacia, bronchiectasis, depression, resident of assisted living facility ([facility]) for CC of altered mental status, tactile fevers, hypoxia, increased dyspnea, cough productive of green sputum increased O2 requirement to 3.5L, + flu contact. She was admitted to telemetry for continuous pulse ox monitoring for acute on chronic hypercapneic and hypoxic respiratory failure. Her respiratory status improved with bipap, steroids, and ceftazidime (for suspected pseudomonas bronchitis/pna in the settings on bronchiectasis, subsequently changed to cipro 500 bid after LRC&S came back with pansensitive pseudomonas). Although her sputum grew MSSA, she has improved with ceftazidime, with resolution of leukocytosis, so we did not add another antibiotics to cover staph aureus initially (other than 1 dose of vancomycin received on admission). We believe that the primary bug causing her respiratory distress is psedomonas given the bronchiectasis, however it is not unreasonable to also treat the staph aureus with ceftin bid, as discussed with Dr. Jewell. She had chest pain during episodes of anxiety and respiratory distress with serial EKG and trops negative for ACS and chest pain has since resolved. She was noted to be bradycardic at night (around 50s), although asymptomatic. As her pulse ox is > 90s and the bradycardia is not causing symptoms, we subsequently discontinued telemetry and pulse ox monitoring. Problem list: # Acute on chronic hypercarbic and hypoxic respiratory failure most likely due to Pseudomonas bronchitis/pna (hx of bronchiectasis) and COPD exacerbation # Acute substernal chest pain in the settings of respiratory distress (resolved) # AMS (resolved) # Asymptomatic urinary tract infection # Mild Hyperkalemia on admission (improved) # Protein calorie malnutrition, poor po intake # Bradycardia # Chronic anemia # Right calf ulcer in dry sterile dressing # Acute on chronic hypercarbic and hypoxic respiratory failure most likely due to Pseudomonas bronchitis/pna (hx of bronchiectasis) and COPD exacerbation - CXR: Hyperinflated lung field secondary to COPD emphysematous changes somewhat nodular interstitial changes on the left base stable since 06/06/2015. - Leukocytosis (11.9) with left shift, no bands , improved to 6.9 - ABG admission : 7.36/73H/58L/40H - ABG on BIPAP : 7.40/62H/70L/38H - AMS on admission, now improved * blood cultures NGTD, urine strep and Legionella antigen negative, sputum culture (PANSENSITIVE PSEUDOMONAS and MSSA) * DC'd vanco after 1 dose. Ceftazidime changed to cipro 500 bid on day # 3 to complete total 10 days of abx. Today day # 4 * Ceftin 250 bid started on day # 4 to cover staph aureus * Prednisone 40 mg starting 3/2, taper 10 mg q 3 days * Discontinued mucomyst after 2 days * Diamox X 1 given 07/01, 07/02. Monitor bicarb on daily labs * Continue on nocturnal BiPAP as needed * Continue home Ativan 1 mg at bedtime, 0.5 mg at 9am and 1pm. HOLD IF DROWSY. * Continuous pulse ox discontinued (satting 90s) * TRC evaluation, total pulmonary toilet * Pulm consult with Dr. Jewell appreciated * Continue albuterol. Hold spiriva. * Ambulate pt as tolerated, physical therapy, OT. # Acute substernal chest pain in the settings of respiratory distress could be suggestive of demand ischemia - Jun 2016 echocardiogram: Normal left ventricular ejection fraction visually estimated at >65. Abnormal relaxation filling pattern of the left ventricle for age (stage 1 diastolic dysfunction). * Serial trops and EKG X 3 negative for ACS * Follow up Dr. Pastrana (cardiology) recommendation * Nitropaste 0.5 X 1 given * 1mg morphine IV q6prn difficulty breathing # Bradycardia at night - No associated chest discomfort, heart rate in the morning 60s-70s * Discontinued tele monitoring as bradycardia occurs at night and asymptomatic. I have also told Dr. Pastrana regarding this # UTI on UA but pt asymptomatic * Urine culture (pansensitive pseudomonas) # Mild Hyperkalemia on admission (improved) - On admission 5.4, down to 4.4, then 3.8, given 1X 40 Kdur, went up to 4.7 * Monitor K # Protein calorie malnutrition, poor po intake - BUN increasing to 33 most likely due to poor po intake * Encourage po intake * Monitor BUN * NS IVF 60ml/hr X 1 bag # Constipation - no documented BM since admission * Ordered miralax,docusate,senna * 1Xmilk mag. If does not have BM by afternoon, will get suppository # Chronic anemia - H/H continues to drop from 9.5 (on admission) to 8.2 - Hx of positive stool guiaiac * Monitor h/h * follow up stool guaiac * sc heparin discontinued 07/03 * will f/u with PCP if pt had colonoscopy # Right calf ulcer in dry sterile dressing * Wound consult appreciated * f/u outpatient wound care # DM - hba1c 5.3 * accucheck and novolog ss tidac/qhs # Continue * Celexa * Ativan and gabapentin * Omeprazole 40 mg daily Diet: CC2 puree DVT ppx: SC heparin discontinued due to dropping h/h. ALPs not used due to lower extremity pain DNR/DNI Problem List: 1. Pseudomonas pneumonia 2. Acute on chronic respiratory failure with hypoxia and hypercapnia Pain Ratin Pain Location: none Pain Goal: Remain pain free Pain Plan: none Tomorrow's Labs & Rationales: bep for inc bicarb and hypokalemia cbc for dropping h/h ANUSHKA GOOD MD 07/04/16 1356: Attending MD Review Statement Attending Statement Attending Statement: examined this patient, discuss w/resident/PA/CAKE PUNCHER, agreed w/resident/PA/CAKE PUNCHER, reviewed EMR data (avail), discussed with nursing, discussed with case mgmt, amended to note Attending Assessment/Plan: Patient seen and examined. Lethargic, oriented 3, not in acute distress. She utilize BiPAP therapy overnight. She denies any complaints this morning. She denies chest pain or shortness of breath. She is lethargic and has poor oral intake according to nursing staff. She is improving from a respiratory standpoint. Oxygen requirement continues to improve. She remains afebrile and hemodynamically stable. She has no leukocytosis on her labs. Hemoglobin is noted to be trending downward slowly. On examination she has fair entry bilaterally with no added sounds. Recommendations: -Continue oxygen supplementation. -His discussed with the pulmonary service. Continue ciprofloxacin for Pseudomonas coverage. Add Ceftin for coverage against her MSSA. Patient is receiving empiric therapy due to her significant respiratory failure on presentation. She has no evidence of pneumonia but likely developed acute bronchitis secondary to these underlying organisms. -Continue to taper slowly off prednisone therapy. -Mobilize patient as tolerated. -Discharge planning to detention facility for [facility]-term rehabilitation. -Schedule family meeting for goals of care discussion. Pulmonary service reports that patient was on hospice care in the past but later improved. She is currently markedly deconditioned and at high risk for further decompensation in the future. -Continue to trend hemoglobin levels. Obtain stool guaiacs. Continue PPI therapy. -Wound care follow-up appreciated.
--- NOTE | 2016-07-04 07:27 | Discharge Summary ---
See Addendum Visit Information Visit Dates Admission Date: 06/30/16 Discharge Date: 07/06/16 Hospital Course Course Attending Physician: Primary Care Physician: EUNICE TAYLOR,HUMAIRA Broussard Consulting Request: 1 Consulting Specialty: Cardiology Consulting Request: 2 Consulting Specialty: Pulmonary Disease Hospital Course: This is an 86-year-old lady with past medical history significant for COPD on 2 L home O2, ILD, tracheobronchomalacia, depression, resident of assisted living facility ([facility]) who presented to the hospital with CC of altered mental status, fever, hypoxia, increased dyspnea, cough productive of green sputum increased O2 requirement to 3.5L, + flu contact. Vital signs on admission: T: 99.6, NC 86, RR 26, BP 132/58, O2 sat: 93% on 2 L NC O2. 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 Cardiovascular Regular Rate, Normal S1, Normal S2 Lungs b/l ronchii Abdomen Normal Bowel Sounds, Soft, No Tenderness Neurological Normal Speech, Strength at 5/5 X4 Ext, Normal Tone, Sensation Intact, Cranial Nerves 3-12 NL Extremities No Clubbing, No Cyanosis, No Edema Lab and Dx data on admission: 06/30/16 1826: Anion Gap 5, Estimated GFR > 60, BUN/Creatinine Ratio 25.0, Glucose 142 H, Lactic Acid 1.3, Calcium 9.5, Total Bilirubin 0.4, AST 20, ALT 27, Alkaline Phosphatase 75, Troponin I 0.02, Total Protein 6.3, Albumin 3.4 L, Globulin 2.9 , Albumin/Globulin Ratio 1.2 06/30/16 1749: Urine Color YEL, Urine Clarity CLDY H, Urine pH 6.5, Ur Specific Hasty 1.025, Urine Protein 100 H, Urine Ketones NEG, Urine Nitrite POS H, Urine Bilirubin NEG, Urine Urobilinogen 0.2, Ur Leukocyte Esterase LARGE H, Ur Microscopic SEDIMENT EXAMINED, Urine WBC PACKD H, Urine Hemoglobin MOD H, Urine Glucose NEG 06/30/16 1735: CBC w Diff NO MAN DIFF REQ, RBC 3.03 L, MCV 96.4, MCH 31.4 H, RDW 13.7, MPV 6.2 L, Gran % 93.2 H, Lymphocytes % 2.5 L, Monocytes % 4.0, Eosinophils % 0.3 , Basophils % 0 L, Absolute Granulocytes 11.1 H, Absolute Lymphocytes 0.3 L, Absolute Monocytes 0.5, Absolute Eosinophils 0, Absolute Basophils 0, PUBS MCHC 32.6 L 06/30/16 1725: pH 7.36, pCO2 73 *H, pO2 58 L, HCO3 40 H, ABG O2 Sat (Measured) 88.0 L, P-50 (Temp Corrected) N, Carboxyhemoglobin 0.7 L, O2 Concentration % 2L, Temperature 98.9, O2 Delivery Method NC, Phlebotomy Draw Site LEFT RADIAL Microbiology 06/30 1748 URINE ROUT: Urine Culture - RECD 06/30 1739 BLOOD: Blood Culture - RECD 06/30 1734 BLOOD: Blood Culture - RECD Diagnostic Data EKG Results:Sinus rhythm, Rate 94, NC 136, QRS 72, QTC 41 CXR Results IMPRESSION: Hyperinflated lung field likely represent COPD/emphysematous disease with nonspecific somewhat nodular interstitial changes predominantly at left lung base, appears stable since 06/06/2015. She was admitted to telemetry monitored service. The following problems were addressed during the course of her hospital stay: #Acute hypoxemic and hypercarbic respiratory failure, most likely secondary to end-stage lung disease with COPD and bronchiectasis with significant gram- negative rods in the sputum patient is high-risk for Pseudomonas bronchitis/ Severe COPD with ongoing exacerbation She was on continuous pulse oximetry. She was maintained on nocturnal BiPAP. Received TRC/meds and pulmonary toilet. Leukocytosis resolved. Mental status improved. Blood cultures were obtained and remained negative to date,urine strep and Legionella antigen were negative, sputum culture showed (PANSENSITIVE PSEUDOMONAS and staph aureus). Flu swab was negative. The patient initially received vancomycin and ceftazidime for suspected HCAP which was later on changed to ciprofloxacin 500 mg twice a day for Pseudomonas bronchitis. Patient should complete a ten-day course of antibiotic therapy. Often was added to her antibiotic regimen to cover for staph aureus. She received Diamox on 07/01/2016 and 07/02/2016, her HCO3 levels were monitored closely. She also received IV steroids which was later on changed to by mouth. - ABG admission : 7.36/73H/58L/40H - ABG on BIPAP : 7.40/62H/70L/38H # Acute substernal chest pain in the settings of respiratory distress: - Jun 2016 echocardiogram: Normal left ventricular ejection fraction visually estimated at >65. Abnormal relaxation filling pattern of the left ventricle for age (stage 1 diastolic dysfunction). ACS was ruled out with serial troponin and EKGs. Cardiology was consulted who did not believe that there was any cardiac component to her symptoms. The patient had occasional episodes of bradycardia on telemetry (60s-70s), she was asymptomatic. #UA suggestive of UTI (positive for nitrate and leukocyte esterase) The patient was asymptomatic. Urine culture was obtained which was positive for pansensitive Pseudomonas. Patient was on antibiotics for possible HCAP Which would adequately cover UTI. # Mild Hyperkalemia on admission Resolved. High potassium level of 5.4 on admission which improved to 4.4. On first day of hospital stay, potassium decreased at 3.8, patient received 1 dose of K Dur 40 MEQ, today's potassium level is 4.7. # Constipation The patient had no documented BM since admission. She was maintained on miralax ,docusate,senna. She had a bowel movement after MOM and suppository. # Anemia Hemoglobin 9.5 on admission which decreased to 8.5 on fourth day of hospital stay. Subcutaneous heparin was discontinued. Hemoglobin dropped further to 7.8. She also had a positive stool for Hemoccult. She is status post 1 unit of PRBC on 07/05/2016. * Monitor h/h # Right calf ulcer in dry sterile dressing Wound consult appreciated recommended placement of a Steri-Strip over this skin tear to maintain proper orientation of the flap and cover with Xeroform change daily. Lower extremity ulcers can be cleansed daily and covered with Xeroform. Wounds are improving and continue current wound care if necessary patient can be seen in the wound care center for outpatient follow-up. # DM Chronic/stable. On no home medications for diabetes. HbA1c 5.3. Was maintained on diabetic diet and Insulin sliding scale. Blood glucose levels were monitored closely and remained within acceptable range. # Protein calorie malnutrition, poor po intake BUN increasing most likely due to poor po intake. By mouth intake was encouraged. # Home medications of omeprazole, Celexa, Ativan, gabapentin were continued. Diet: Diabetic diet/ puree #Attending had extensive conversation with patient's daughter on 07/05/2016. Patient was on placed on hospice care in February 2016. She was taken off hospice a month ago because the nursing staff felt the patient was doing better. She reports that her mother is very deconditioned at baseline and is essentially wheelchair/bed bound. She is in favor of her mother going back into hospice care once she returns to the [facility] facility. Complications: None Allergies: Coded Allergies: Penicillins (PER W-10 06/30/16) aspirin (GI UPSET, NOSEBLEEDS 06/30/16) Pertinent Lab Results: Laboratory Tests 07/04 0622 Chemistry Sodium (137 - 145 mmol/L) 141 Potassium (3.5 - 5.1 mmol/L) 4.7 Chloride (98 - 107 mmol/L) 98 Carbon Dioxide (22 - 30 mmol/L) 38 H Anion Gap (5 - 16) 5 BUN (7 - 17 mg/dL) 33 H Creatinine (0.5 - 1.0 mg/dL) 0.8 Estimated GFR (>60 ml/min) > 60 BUN/Creatinine Ratio (7 - 25 %) 41.3 H Magnesium (1.6 - 2.3 mg/dL) 2.0 Hematology CBC w Diff Pending WBC Pending RBC Pending Hgb Pending Hct Pending MCV Pending MCH Pending RDW Pending Plt Count Pending MPV Pending Gran % Pending Lymphocytes % Pending Monocytes % Pending Eosinophils % Pending Basophils % Pending Absolute Granulocytes Pending Absolute Lymphocytes Pending Absolute Monocytes Pending Absolute Eosinophils Pending Absolute Basophils Pending PUBS MCHC Pending Disposition Summary Disposition Principal Diagnosis: Acute hypoxemic and hypercarbic respiratory failure, most likely secondary to end-stage lung disease with COPD and bronchiectasis with significant gram- negative rods in the sputum patient is high-risk for Pseudomonas bronchitis Additional Diagnosis: UA suggestive of UTI Chronic anemia Discharge Disposition: SNF Discharge Instructions General Discharge Information Code Status: Do Not Resucitate/Intubat Patient's Diet: Diabetic diet/Puree Patient's Activity: As tolerated Follow-Up Instructions/Appts: -Please follow up with your PCP within a week of discharge. -Please follow up with livestock counter, Dr. Jewell with a week of discharge. -Please follow-up with wound care as outpatient. -Please return to the hospital if your symptoms not improved/worsened. -Please take your medications as instructed. Medications at Discharge Discharge Medications: Stop taking the following medications: Naloxone HCl (Narcan) 4 MG/ACTUATION SPRAY In the nose As Directed as needed for OPIOID INDUCED RESP. DEPRESSIO Prednisone (Prednisone) 5 MG TABLET ORAL DAILY Guaifenesin (Adult Tussin Chest Congestion) (Unknown Strength) LIQUID ORAL Q6H as needed for COUGH Continue taking these medications: Acetaminophen (Pain Relief) 650 MG TABLET.ER 1 Tablet ORAL THREE TIMES DAILY Comments: PER W Lorazepam (Ativan) 0.5 MG TABLET 1 Tablet ORAL TWICE DAILY Comments: PER - 9AM AND 1PM Lorazepam (Ativan) 1 MG TABLET 1 Tablet ORAL TAKE AT BEDTIME Comments: PER - Citalopram Hydrobromide (Celexa) 20 MG TABLET 1 Tablet ORAL TAKE AT BEDTIME Comments: PER Gabapentin (Gabapentin) 100 MG CAPSULE 200 Milligram ORAL TWICE DAILY Comments: PER Melatonin (Melatonin) 3 MG TABLET 9 Milligram ORAL Every night Comments: PER Docusate Sodium (Colace) 100 MG CAPSULE 1 Capsule ORAL DAILY Comments: PER Sennosides (Senna) 8.6 MG TABLET 2 Tablet ORAL DAILY Comments: PER Fluticasone/Vilanterol (Breo Ellipta 100-25 Mcg INH) 100 MCG-25 MCG/DOSE BLST.W.DEV 1 Puff Inhale through mouth DAILY Comments: PER Sodium Chloride (Saline Nasal [place]) 0.65 % SPRAY 1 [place] Both sides of nose TWICE DAILY Comments: PER Tiotropium [place] (Spiriva) 18 MCG CAP.W.DEV 1 Capsule Inhale through mouth DAILY Comments: PER Ipratropium/Albuterol Sulfate (Iprat-Albut 0.5-3(2.5) MG/3 Ml) 0.5 MG-3 MG (2.5 MG BASE)/3 ML AMPUL.NEB 1 VIAL Inhale through mouth TWICE DAILY Comments: PER LAST DATE 07/03/2016 Calcitonin,[place],Synthetic (Calcitonin-Alvord) 200 UNIT/SPRAY SPRAY.PUMP 1 [place] In the nose DAILY Comments: PER W-10 RIGHT NOSTRIL ON EVEN DAYS, LEFT NOSTRIL ON ODD DAYS Acetaminophen (Acephen) 650 MG SUPP.RECT 1 SUPPOSITORY RECTALLY Q4H as needed for PAIN/TEMP>101 Comments: PER W- IF UNABLE TO TAKE PO FORM, NTE 3GM APA IN 24H Acetaminophen (Acetaminophen) 325 MG TABLET 2 Tablet ORAL Q4H as needed for PAIN/TEMP>101 Comments: PER W- NTE 3GM APAP IN 24H Tramadol HCl (Tramadol HCl) 50 MG TABLET 25 Milligram ORAL Q6H as needed for PAIN UNRELIEVED BY APAP Comments: PER W-10 Bisacodyl (Dulcolax) 10 MG SUPP.RECT 1 Suppository RECTAL DAILY as needed for CONSTIPATION Comments: PER W- IF MOM INEFFECTIVE Na Phos,M-B/Na Phos,Di-Ba (Fleet Enema) 19 GRAM-7 GRAM/118 ML ENEMA 1 Enema RECTAL DAILY as needed for CONSTIPATION Comments: PER W- IF DULCOLAX SUPP INEFFECTIVE Magnesium Hydroxide (Milk Of Magnesia) 400 MG/5 ML ORAL.SUSP 30 Milliliters ORAL Every 3 days as needed for CONSTIPATION Comments: PER W- Ipratropium/Albuterol Sulfate (Iprat-Albut 0.5-3(2.5) MG/3 Ml) 0.5 MG-3 MG (2.5 MG BASE)/3 ML AMPUL.NEB 1 VIAL Inhale through mouth Q4H as needed for WHEEZE/SOB RESP. DISTRESS Comments: PER - Scopolamine Hydrobromide (Transderm-Scop) 1.5MG/3DAY PATCH.TD.3 1 Patch On the skin Every 3 days as needed for ORAL SECRETIONS Instructions: apply to the hairless area behind 1 ear at least 4 hours before effect is required; reapply every 3 days as needed Comments: PER W- Dorzolamide HCl (Trusopt) 2 % DROPS 1 DROP Right Eye TWICE DAILY Comments: PER - Propylene Glycol/Peg 400 (Systane 0.3-0.4% Eye Drops) (Unknown Strength) DROPS 1 DROP In the eye THREE TIMES DAILY Comments: PER - Bimatoprost (Lumigan) 0.01 % DROPS 1 Drop Right Eye Every night Comments: PER - Start taking the following new medications: Ciprofloxacin HCl (Cipro) 500 MG TABLET 1 Tablet ORAL TWICE DAILY Qty = 9 No Refills Instructions: please take until 07/10/16 to complete 10 days of antibiotics Prednisone (Prednisone) 10 MG TABLET 1 Tablet ORAL See Instructions Qty = 18 No Refills Instructions: Taper 10 mg every 3 days Take 30 mg for 3 days starting on 07/07/16 Followed by 20 mg for 3 days Followed by 10 mg for 3 days Cefuroxime Axetil (Ceftin) 250 MG/5 ML SUSP.RECON 5 Milliliters ORAL TWICE DAILY Qty = 100 No Refills Instructions: Please take until 07/10/16 Copies To: JUAN TAYLOR,ONOFRE Bedolla; EUNICE TAYLOR,HUMAIRA Broussard Attending MD Review Statement Documenting Attending: ANUSHKA GOOD M.D
[2016-07-04 07:54] LABS: ABSOLUTE BASOPHIL COUNT 0 /CUMM (0.0-0.2); ABSOLUTE EOSINOPHIL COUNT 0 /CUMM (0.0-0.7); ABSOLUTE GRANULOCYTE CT 6.2 /CUMM (1.4-6.5); ABSOLUTE LYMPH COUNT 0.3 /CUMM (1.2-3.4); ABSOLUTE MONOCYTE COUNT 0.8 /CUMM (0.10-0.60); BASOPHIL % 0 % (0.0-2.0); EOSINOPHIL % 0.1 % (0-5); GRANULOCYTE % 84.6 % (42.2-75.2); HEMATOCRIT 25.4 % (37-47); MEAN CORPUSCULAR HGB CONC 32.2 G/DL (33.0-37.0); MEAN CORPUSCULAR VOLUME 96.3 FL (81.0-99.0); MEAN PLATELET VOLUME 6.4 FL (7.4-10.4); PLATELET COUNT 229 /CUMM (130-400); RBC DISTRIBUTION WIDTH 13.6 % (11.5-14.5); RED BLOOD CELL CT 2.64 /CUMM (4.20-5.40)
[2016-07-04 08:00] VITALS: BP 120/60
--- NOTE | 2016-07-04 08:34 | PN- Wound Care ---
Subjective Subjective: Patient wounds appear improved Objective Vital Signs and I&Os Vital Signs Result Date Time Pulse Ox 99 07/05 799 B/P 120/60 07/05 799 O2 Delivery Nasal Cannula 07/05 799 O2 Flow Rate 2.5L 07/05 799 Temp 97.6 07/05 799 Pulse 66 07/04 08 Resp 20 07/04 08 Intake & Output 07/04 0000 07/03 1600 07/03 0800 Intake Total 960 500 0 Output Total 400 Balance 560 500 0 Intake, IV 20 Intake, Oral 960 480 0 Output, Urine 400 Left arm skin tear shows the skin flap to be intact held in place with Steri- Strips. The right lower extremity wound is improved now has red fill measures approximately 0.8 x 0.4 cm Impression/Plan Impression/Plan Impression/Plan: 86-year-old woman with severe chronic hypercapnic history failure admitted with increasing shortness of breath now on BiPAP. Patient is to small lower extremity wounds likely traumatic and a left arm skin tear. Recommend placement of a Steri-Strip over this skin tear to maintain proper orientation of the flap and cover with Xeroform change daily. Lower extremity ulcers can be cleansed daily and covered with Xeroform. Wounds are improving and continue current wound care if necessary patient can be seen in the wound care center for outpatient follow-up
[2016-07-04 09:23] LABS: WHITE BLOOD CELL COUNT 7.4 /CUMM (4.8-10.8)
[2016-07-04] MEDS ORDERED: CEFTIN250 MG/51 PO (10:04)
[2016-07-04 16:24] VITALS: BP 108/58
--- NOTE | 2016-07-04 19:46 | PN- Pulmonary ---
Subjective HPI/Critical Care Issues: relatively stable sputum is growing Pseudomonas and staph aureus ROS neg Objective Current Medications: Current Medications Sig/Teena Start time Last Medication Dose Route Stop Time Status Admin Acetaminophen 650 MG Q6P PRN 06/30 2045 AC PO Acetaminophen/ 1 TAB Q6P PRN 06/30 2045 AC Hydrocodone Bitart PO Albuterol Sulfate 3 ML TID 07/03 2200 AC 07/04 INH 1620 Bisacodyl 10 MG ONCE ONE 07/04 1400 DC FL 07/04 1401 Budesonide/ 2 PUF BID 06/30 2200 AC 07/04 Formoterol Fumarate INH 0918 Cefuroxime Sodium 250 MG Q12 07/04 1000 AC 07/04 PO 1429 Ciprofloxacin 500 MG BID 07/03 1000 AC 07/04 PO 07/07 0959 0919 Citalopram 20 MG AT BEDTIME 06/30 2200 AC 07/03 Hydrobromide PO 2112 Docusate Sodium 100 MG BID 07/03 1000 AC 07/04 PO 0919 Dorzolamide HCl 2 GTT BID 06/30 2200 AC 07/04 OPH 0920 Gabapentin 200 MG BID 07/01 2200 AC 07/04 PO 0919 Insulin Aspart 0 TIDAC/HS 07/01 0800 AC 07/03 SC 2112 Lorazepam 0.5 MG 0900,1300 07/02 0900 AC 07/04 PO 07/09 0859 0922 Lorazepam 1 MG AT BEDTIME 07/01 2200 AC 07/03 PO 2112 Magnesium Hydroxide 30 ML ONE ONE 07/04 0730 DC 07/04 PO 07/04 0731 0918 Melatonin 9 MG QPM 07/01 2200 AC 07/03 PO 2112 Morphine Sulfate 1 MG Q6P PRN 07/01 1430 AC IV Omeprazole 40 MG DAILY AC 07/01 1530 AC 07/04 PO 0601 Oxycodone/ 2 TAB Q6P PRN 06/30 2045 AC Acetaminophen PO Patient Medication 1 ED .STK-MED ONE 07/04 1350 DC Teaching ED 07/04 1351 Polyethylene Glycol 17 GM DAILY 07/03 1000 AC 07/04 PO 0919 Prednisone 40 MG DAILY 07/04 1000 AC 07/04 PO 04 1001 1219 Senna 187 MG AT BEDTIME 07/03 2200 AC 07/03 PO 2113 Sodium Chloride 1,000 ML Q20H 07/04 1000 AC 07/04 IV 07/05 0239 1219 Tiotropium [place] 1 PUF DAILY 07/01 1000 AC 07/04 INH 0919 Vital Signs & I&O Last 24 Hrs of Vitals and I&O: Vital Signs Date Time Temp Pulse Resp B/P Pulse O2 O2 Flow FiO2 Ox Delivery Rate 07/04 1624 97.9 74 18 108/58 99 Nasal 2.5L Cannula 07/04 1620 97 Nasal 2.5L Cannula 07/04 1600 97 Nasal 2.5L Cannula 07/04 0837 93 Nasal 2.5L Cannula 07/04 0800 99 Nasal 3.0L Cannula 07/04 0800 97.6 66 20 120/60 99 Nasal 2.5L Cannula 07/04 0028 97.9 80 20 100/60 97 Nasal Cannula 07/04 0000 95 Nasal 3.0L Cannula 07/03 2130 94 Nasal 2.5L Cannula Intake & Output 07/04 1600 07/04 0800 07/04 0000 Intake Total 480 120 960 Output Total 400 Balance 480 120 560 Intake, IV 180 Intake, Oral 300 120 960 Number 0 Bowel Movements Output, Urine 400 Impression/Plan Impression/Plan Impression/Plan: SIGNIFICANT DATA Chest x-ray reviewed showed hyperinflated lung with COPD with interstitial changes stable since the last chest x-ray Blood work showed potassium was 5.4 bicarbonate 40 which has been chronically elevated White count 9.1 hemoglobin chronically low at 9.2 with significant left shift noted ABG reviewed which showed 7.40/62/70 on BiPAP Urine culture grew gram-negative [place] sputum cultures also growing gram-negative rods patient has had previous strep pneumo and staph aureus in the sputum Physical Exam General Appearance Alert, Oriented X3, Cooperative, Mild Distress Skin skin tear on right lateral calf with clean dry dressing HEENT PERRLA, EOMI, 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 Cardiovascular Regular Rate, Normal S1, Normal S2 Lungs b/l ronchii Abdomen Normal Bowel Sounds, Soft, No Tenderness Neurological Normal Speech, Strength at 5/5 X4 Ext, Normal Tone, Sensation Intact, Cranial Nerves 3-12 NL Extremities No Clubbing, No Cyanosis, No Edema IMPRESSION This is an elderly lady who has very severe COPD, significant bronchiectasis, recurrent bilateral pneumonitis with mucous plugging, worsening overall performance status, significant anxiety, on and off occasional chest discomfort, hyperlipidemia, hypertension, mild dementia and depression, diabetes and hypothyroidism * Resolving Acute hypoxemic and hypercarbic respiratory failure, due to end- stage lung disease with COPD and bronchiectasis with pseudomonas * Severe COPD with ongoing exacerbation * Mild interstitial lung disease on top of her chronic lung disease * Ongoing chest discomfort probably related to respiratory distress with mild ST -T changes rule out acute myocardial ischemia * Urinary tract infection * Mild hyperkalemia * Protein energy malnutrition * Chronic anemia * Previous thickened esophagus in the CAT scan we GERD * Previous anxiety and depression with the tracheobronchomalacia with ongoing wheezing * Worsening performance status * Right lateral calf ulcer RECOMMENDATION * Continue BiPAP prn and keep off when pt tolerates it * Can Change to po cipro and can add ceftin * Continue albuterol nebulizer therapy around the clock every 6 hours * Change to po prednisone 40 and taper in 8 days from am * Continue other medications * Continue to monitor potassium * Heparin subcutaneous * Continue proton pump inhibitor Prognosis guarded
[2016-07-04 23:31] VITALS: BP 110/50
[2016-07-05 07:52] VITALS: BP 120/70
--- NOTE | 2016-07-05 08:02 | PN- Housestaff ---
CHELO TAYLOR,CARMELO 07/05/16 0802: Subjective Follow-up For: pseudomonas and staph aureus bronchitis copd exacerbation poor po intake constipation Subjective: Pt had 2 BM yesterday with the milk mag and suppository. she still has poor po intake, she reports not having an appetite and has no specific preference for food. i encouraged her to drink more water to avoid dehydration. she seems more alert today and reports no complaints. she was in no respiratory distress.her wheezing was worse today compared to yesterday, cxr showed no acute findings. am labs reviewed, noted further drop in h/h from 8.2 to 7.9 despite heparin being discontinued. bun improving from 38 to 26 with iv hydration. K increasing from 4.7 to5. i spoke to her grand-daughter yesterday and updated her regarding pt's status and our current management. will plan family meeting to discuss goals of care (? colonoscopy for GI bleed, rehospitalize, etc). plan to talk to her daughter this afternoon. Review of Systems Constitutional: Denies: chills, fever. EENTM: Denies: visual changes. Cardiovascular: Denies: chest pain. Respiratory: Denies: cough, short of breath. Gastrointestinal: Denies: abdominal pain. Genitourinary: Denies: dysuria. Objective Last 24 Hrs of Vital Signs/I&O Vital Signs Date Time Temp Pulse Resp B/P Pulse O2 O2 Flow FiO2 Ox Delivery Rate 07/05 0752 97.4 67 18 120/70 96 Nasal 2.0L Cannula 07/05 0000 Nasal 2.0L Cannula 07/04 2331 97.5 72 18 110/50 97 Nasal Cannula 07/04 1624 97.9 74 18 108/58 99 Nasal 2.5L Cannula 07/04 1620 97 Nasal 2.5L Cannula 07/04 1600 97 Nasal 2.5L Cannula 07/04 0837 93 Nasal 2.5L Cannula Intake & Output 07/05 1600 07/05 0800 07/05 0000 Intake Total 150 850 Output Total 400 Balance 150 450 Intake, IV 150 500 Intake, Oral 0 350 Number 0 2 Bowel Movements Output, Urine 400 Physical Exam General Appearance: Alert, Oriented X3, Cooperative, No Acute Distress Skin: bruises on both arms HEENT: Atraumatic Cardiovascular: Regular Rate, Normal S1, Normal S2 Lungs: exp wheezing mild crackles at the bases decreased breath sounds (not taking deep breaths) Abdomen: Normal Bowel Sounds, Soft, No Tenderness Extremities: No Edema Current Medications: Current Medications Sig/Teena Start time Last Medication Dose Route Stop Time Status Admin Acetaminophen 650 MG Q6P PRN 06/30 2045 AC PO Acetaminophen/ 1 TAB Q6P PRN 06/30 2045 AC Hydrocodone Bitart PO Albuterol Sulfate 3 ML TID 07/03 2200 AC 07/05 INH 0836 Bisacodyl 10 MG ONCE ONE 07/04 1400 DC [place] 07/04 1401 Budesonide/ 2 PUF BID 06/30 2200 AC 07/04 Formoterol Fumarate INH 2039 Cefuroxime Sodium 250 MG Q12 07/04 1000 AC 07/04 PO 2038 Ciprofloxacin 500 MG BID 07/03 1000 AC 07/04 PO 07/07 0959 2038 Citalopram 20 MG AT BEDTIME 06/30 2200 AC 07/04 Hydrobromide PO 2038 Docusate Sodium 100 MG BID 07/03 1000 AC 07/04 PO 2038 Dorzolamide HCl 2 GTT BID 06/30 2200 AC 07/04 OPH 2038 Gabapentin 200 MG BID 07/01 2200 AC 07/04 PO 2039 Insulin Aspart 0 TIDAC/HS 07/01 0800 AC 07/04 SC 2223 Lorazepam 0.5 MG 0900,1300 07/02 0900 AC 07/04 PO 07/09 0859 0922 Lorazepam 1 MG AT BEDTIME 07/01 2200 AC 07/03 PO 2112 Melatonin 9 MG QPM 07/01 2200 AC 07/04 PO 2038 Morphine Sulfate 1 MG Q6P PRN 07/01 1430 AC IV Omeprazole 40 MG DAILY AC 07/01 1530 AC 07/05 PO 0632 Oxycodone/ 2 TAB Q6P PRN 06/30 2045 AC Acetaminophen PO Patient Medication 1 ED .STK-MED ONE 07/04 1350 DC Teaching ED 07/04 1351 Polyethylene Glycol 17 GM DAILY 07/03 1000 AC 07/04 PO 0919 Prednisone 40 MG DAILY 07/04 1000 AC 07/04 PO 07/06 1001 1219 Senna 187 MG AT BEDTIME 07/03 2200 AC 07/04 PO 2038 Sodium Chloride 1,000 ML Q20H 07/04 1000 DC 02 IV 07/05 0239 1219 Tiotropium [place] 1 PUF DAILY 07/01 1000 AC 07/04 INH 0919 Last 24 Hrs of Lab/[place] Results Last 24 Hrs of Labs/Mics: Laboratory Tests 07/05 0630 Chemistry Sodium (137 - 145 mmol/L) 142 Potassium (3.5 - 5.1 mmol/L) 5.0 Chloride (98 - 107 mmol/L) 101 Carbon Dioxide (22 - 30 mmol/L) 37 H Anion Gap (5 - 16) 4 L BUN (7 - 17 mg/dL) 26 H Creatinine (0.5 - 1.0 mg/dL) 0.7 Estimated GFR (>60 ml/min) > 60 BUN/Creatinine Ratio (7 - 25 %) 37.1 H Hematology CBC w Diff NO MAN DIFF REQ WBC (4.8 - 10.8 /CUMM) 5.7 RBC (4.20 - 5.40 /CUMM) 2.48 L Hgb (12.0 - 16.0 G/DL) 7.9 L Hct (37 - 47 %) 23.8 L MCV (81.0 - 99.0 FL) 96.1 MCH (27.0 - 31.0 PG) 32.0 H RDW (11.5 - 14.5 %) 13.9 Plt Count (130 - 400 /CUMM) 199 MPV (7.4 - 10.4 FL) 7.2 L Gran % (42.2 - 75.2 %) 82.1 H Lymphocytes % (20.5 - 51.1 %) 4.9 L Monocytes % (1.7 - 9.3 %) 12.4 H Eosinophils % (0 - 5 %) 0.5 Basophils % (0.0 - 2.0 %) 0.1 Absolute Granulocytes (1.4 - 6.5 /CUMM) 4.7 Absolute Lymphocytes (1.2 - 3.4 /CUMM) 0.3 L Absolute Monocytes (0.10 - 0.60 /CUMM) 0.7 H Absolute Eosinophils (0.0 - 0.7 /CUMM) 0 Absolute Basophils (0.0 - 0.2 /CUMM) 0 PUBS MCHC (33.0 - 37.0 G/DL) 33.3 Assessment/Plan Assessment: 86-year-old lady with a history of COPD with 2 L home O2, ILD, tracheobronchomalacia, bronchiectasis, depression, resident of assisted living facility ([facility]) for CC of altered mental status, tactile fevers, hypoxia, increased dyspnea, cough productive of green sputum increased O2 requirement to 3.5L, + flu contact. She was admitted to telemetry for continuous pulse ox monitoring for acute on chronic hypercapneic and hypoxic respiratory failure. Her respiratory status improved with bipap, steroids, and ceftazidime (for suspected pseudomonas bronchitis/pna in the settings on bronchiectasis, subsequently changed to cipro 500 bid after LRC&S came back with pansensitive pseudomonas). Although her sputum grew MSSA, she has improved with ceftazidime, with resolution of leukocytosis, so we did not add another antibiotics to cover staph aureus initially (other than 1 dose of vancomycin received on admission). We believe that the primary bug causing her respiratory distress is psedomonas given the bronchiectasis, however it is not unreasonable to also treat the staph aureus with ceftin bid, as discussed with Dr. Jewell. She had chest pain during episodes of anxiety and respiratory distress with serial EKG and trops negative for ACS and chest pain has since resolved. She was noted to be bradycardic at night (around 50s), although asymptomatic. As her pulse ox is > 90s and the bradycardia is not causing symptoms, we subsequently discontinued telemetry and pulse ox monitoring. Problem list: # Acute on chronic hypercarbic and hypoxic respiratory failure most likely due to pseudomonas and staph aureus bronchitis (hx of bronchiectasis) and COPD exacerbation # Mild Hyperkalemia on admission (improved) # Acute on chronic anemia (dropping h/h) # Protein calorie malnutrition, poor po intake # Constipation (resolved) # Acute substernal chest pain in the settings of respiratory distress (resolved) # AMS (resolved) # Asymptomatic urinary tract infection # Bradycardia # Right calf ulcer in dry sterile dressing # Acute on chronic hypercarbic and hypoxic respiratory failure most likely due to pseudomonas and staph aureus bronchitis (hx of bronchiectasis) and COPD exacerbation - CXR: Hyperinflated lung field secondary to COPD emphysematous changes somewhat nodular interstitial changes on the left base stable since 06/06/2015. - Leukocytosis (11.9) with left shift, no bands , improved to 6.9 - ABG admission : 7.36/73H/58L/40H - ABG on BIPAP : 7.40/62H/70L/38H - AMS on admission, now improved * blood cultures NGTD, urine strep and Legionella antigen negative, sputum culture (PANSENSITIVE PSEUDOMONAS and MSSA) * DC'd vanco after 1 dose. Ceftazidime changed to cipro 500 bid on day # 3 to complete total 10 days of abx. Today day # 5 * Ceftin 250 bid started on day # 4 to cover staph aureus * Prednisone 40 mg starting 3/2, taper 10 mg q 3 days * Discontinued mucomyst after 2 days * Diamox X 1 given 07/01, 07/02. Monitor bicarb on daily labs * Continue on nocturnal BiPAP as needed * Continue home Ativan 1 mg at bedtime, 0.5 mg at 9am and 1pm. HOLD IF DROWSY. * Continuous pulse ox discontinued (satting 90s,now on home 2L o2 via NC) * TRC evaluation, total pulmonary toilet * Pulm consult with Dr. Jewell appreciated * Continue albuterol. Hold spiriva. * Ambulate pt as tolerated, physical therapy, OT. # Mild Hyperkalemia on admission (improved) - On admission 5.4, down to 4.4, then 3.8, given 1X 40 Kdur, went up to 4.7 * Monitor K # Acute on chronic anemia - H/H continues to drop from 9.5 (on admission) to 7.8 - Hx of positive stool guiaiac * Monitor h/h * Stool guaiac positive. PCP and [facility] not aware when her last colonoscopy was * sc heparin discontinued 07/03 * Transfuse 1 unit on 07/05 # Protein calorie malnutrition, poor po intake - BUN increasing to 33 most likely due to poor po intake * Encourage po intake * Monitor BUN # Constipation (resolved, had 2 BM on 07/04 after milk mag and supp) - no documented BM since admission * Continue miralax,docusate,senna # Acute substernal chest pain in the settings of respiratory distress could be suggestive of demand ischemia (resolved) - Jun 2016 echocardiogram: Normal left ventricular ejection fraction visually estimated at >65. Abnormal relaxation filling pattern of the left ventricle for age (stage 1 diastolic dysfunction). - Serial trops and EKG X 3 negative for ACS * Follow up Dr. Pastrana (cardiology) recommendation * Nitropaste 0.5 X 1 given * 1mg morphine IV q6prn difficulty breathing # Asymptomatic bradycardia at night - No associated chest discomfort, heart rate in the morning 60s-70s * Discontinued tele monitoring as bradycardia occurs at night and asymptomatic. I have also told Dr. Pastrana regarding this # UTI on UA but pt asymptomatic * Urine culture (pansensitive pseudomonas) # Right calf ulcer in dry sterile dressing * Wound consult appreciated * f/u outpatient wound care # DM - hba1c 5.3 * accucheck and novolog ss tidac/qhs # Continue * Celexa * Ativan and gabapentin * Omeprazole 40 mg daily Diet: CC2 puree DVT ppx: SC heparin discontinued due to dropping h/h. ALPs not used due to lower extremity pain DNR/DNI Problem List: 1. Pseudomonas pneumonia Pain Ratin Pain Location: none Pain Goal: Remain pain free Pain Plan: none Tomorrow's Labs & Rationales: bep for hyperkalemia and dehydration cbc for dropping h/h, guaiac pos stool. Consulting Request: Consulting Specialty: Pulmonary Disease ANUSHKA GOOD MD 07/05/16 1145: Attending MD Review Statement Attending Statement Attending MD Statement: examined this patient, discuss w/resident/PA/YARD CLERK, agreed w/resident/PA/YARD CLERK, reviewed EMR data (avail), discussed with nursing, discussed with case mgmt, amended to note Attending Assessment/Plan: Patient seen and examined. Lying in bed not in acute distress although chronically ill-looking. She continues to deny any symptoms. She however reports poor appetite and oral intake remains extremely low. Oxygen requirement has not increased however she is wheezing more pronounced today on auscultation. Laboratory data shows that her hemoglobin level continues to trend downwards and she has tested guaiac-positive this morning. Her primary care doctor has no records of previous endoscopic workup. Problems: 1. Acute on chronic hypercapnic and hypoxic respiratory failure 2. Acute bronchitis secondary to Pseudomonas and MSSA 3. Pseudomonas bacteriuria 4. Acute on chronic anemia with guaiac-positive stools. 5. Protein calorie malnutrition secondary to poor oral intake from deconditioning 6. Markedly deconditioning with previous history of hospice admission 7. Acute chest pain; resolved. ACS ruled out. 8. Right cough ulcer. Plan: -Continue bronchodilator therapy. Continue steroid taper. Continue oxygen supplementation -Transfuse 1 unit of PRBC. -Awaiting family meeting to discuss goals of care. -Discharge to custodial facility once goals of care discussion has been discussed with family and transfusion completed. -Continue wound care per recommendations of the wound care service. Addendum: I had an extensive conversation with the patient's daughter today. Patient was placed on hospice care in February 2016. She was taken off hospice a month ago because the nursing staff felt the patient was doing better. Daughter reports she was quite surprised about this. She was even more surprised when she heard the patient was being transported to the hospital for treatment. She reports that her mother is very deconditioned at baseline and is essentially wheelchair/ bed bound. She is in favor of her mother going back into hospice care once she returns to the custodial facility. Patient will receive 1 unit of Paced red blood cell transfusion today. She will be transferred back to the custodial facility tomorrow.
[2016-07-05 08:46] LABS: ABSOLUTE BASOPHIL COUNT 0 /CUMM (0.0-0.2); ABSOLUTE EOSINOPHIL COUNT 0 /CUMM (0.0-0.7); ABSOLUTE GRANULOCYTE CT 4.7 /CUMM (1.4-6.5); ABSOLUTE LYMPH COUNT 0.3 /CUMM (1.2-3.4); ABSOLUTE MONOCYTE COUNT 0.7 /CUMM (0.10-0.60); BASOPHIL % 0.1 % (0.0-2.0); EOSINOPHIL % 0.5 % (0-5); GRANULOCYTE % 82.1 % (42.2-75.2); HEMATOCRIT 23.8 % (37-47); MEAN CORPUSCULAR HGB CONC 33.3 G/DL (33.0-37.0); MEAN CORPUSCULAR VOLUME 96.1 FL (81.0-99.0); MEAN PLATELET VOLUME 7.2 FL (7.4-10.4); PLATELET COUNT 199 /CUMM (130-400); RBC DISTRIBUTION WIDTH 13.9 % (11.5-14.5); RED BLOOD CELL CT 2.48 /CUMM (4.20-5.40); WHITE BLOOD CELL COUNT 5.7 /CUMM (4.8-10.8)
--- NOTE | 2016-07-05 10:53 | RADIOLOGY REPORT ---
EXAMINATION: XR PORTABLE CHEST CLINICAL INFORMATION: Crackles and wheezing in the lung. Presumptive diagnosis of pseudomonas bronchitis, COPD exacerbation, pulmonary edema. COMPARISON: 06/30/2016 TECHNIQUE: AP portable semiupright view of the chest FINDINGS: Prominence of the central pulmonary vasculature is again noted, consistent with pulmonary arterial hypertension. Architectural distortion of the lung parenchyma and reticular opacities are consistent with the known emphysema. Reticular opacities at the lung bases are unchanged as compared to prior. No new consolidation. Cardiac silhouette is not significantly changed allowing for differences in patient rotation. Blunting of the calcific sulci is likely due to scarring. No appreciable effusions. No pneumothorax. Bones are osteopenic with degenerative spondylosis in the thoracic spine. IMPRESSION: 1. Pulmonary emphysema with superimposed atelectasis vs. scarring at the lung bases. Early smoking-related interstitial lung disease is also possible. 2. No new or acute pulmonary findings.
[2016-07-05 16:17] VITALS: BP 120/58
--- NOTE | 2016-07-05 18:16 | PN- Pulmonary ---
Subjective HPI/Critical Care Issues: Doing ok Stable Objective Current Medications: Current Medications Sig/Teena Start time Last Medication Dose Route Stop Time Status Admin Acetaminophen 650 MG Q6P PRN 06/30 2044 AC PO Acetaminophen/ 1 TAB Q6P PRN 06/30 2044 AC Hydrocodone Bitart PO Albuterol Sulfate 3 ML TID 07/03 2200 AC 07/05 INH 1312 Budesonide/ 2 PUF BID 06/30 2200 AC 07/05 Formoterol Fumarate INH 1032 Cefuroxime Sodium 250 MG Q12 07/04 1000 AC 07/05 PO 1034 Ciprofloxacin 500 MG BID 07/03 1000 AC 07/05 PO 07/07 0959 1034 Citalopram 20 MG AT BEDTIME 06/30 2200 AC 07/04 Hydrobromide PO 2038 Docusate Sodium 100 MG BID 07/03 1000 AC 07/05 PO 1034 Dorzolamide HCl 2 GTT BID 06/30 2200 AC 07/05 OPH 1038 Gabapentin 200 MG BID 07/01 2200 AC 07/05 PO 1034 Insulin Aspart 0 TIDAC/HS 07/01 0800 AC 07/04 SC 2223 Lorazepam 0.5 MG 0900,1300 07/02 0900 AC 07/05 PO 07/09 0859 1335 Lorazepam 1 MG AT BEDTIME 07/01 2200 AC 07/03 PO 2112 Melatonin 9 MG QPM 07/01 2200 AC 07/04 PO 2038 Morphine Sulfate 1 MG Q6P PRN 07/01 1430 AC IV Omeprazole 40 MG DAILY AC 07/01 1530 AC 07/05 PO 0632 Oxycodone/ 2 TAB Q6P PRN 06/30 204 AC Acetaminophen PO Polyethylene Glycol 17 GM DAILY 07/03 1000 AC 07/05 PO 1036 Prednisone 30 MG DAILY 07/07 1000 AC PO 07/09 1001 Prednisone 40 MG DAILY 07/04 1000 AC 07/05 PO 07/06 1001 1034 Senna 187 MG AT BEDTIME 07/03 2200 AC 07/04 PO 2038 Sodium Chloride 1,000 ML Q20H 07/04 1000 DC 07/04 IV 07/05 0239 1219 Tiotropium [place] 1 PUF DAILY 07/01 1000 AC 07/05 INH 1032 Vital Signs & I&O Last 24 Hrs of Vitals and I&O: Vital Signs Date Time Temp Pulse Resp B/P Pulse O2 O2 Flow FiO2 Ox Delivery Rate 07/05 1617 98.1 84 20 120/58 93 Nasal 2.0L Cannula 07/05 0837 93 Nasal 2.0L Cannula 07/05 0800 95 Nasal 2.0L Cannula 07/05 0752 97.4 67 18 120/70 96 Nasal 2.0L Cannula 07/05 0000 Nasal 2.0L Cannula 07/04 2331 97.5 72 18 110/50 97 Nasal Cannula Intake & Output 07/05 1600 07/05 0800 07/05 0000 Intake Total 360 150 850 Output Total 400 Balance 360 150 450 Intake, IV 150 500 Intake, Oral 360 0 350 Number 0 0 2 Bowel Movements Output, Urine 400 Impression/Plan Impression/Plan Impression/Plan: SIGNIFICANT DATA Chest x-ray reviewed showed hyperinflated lung with COPD with interstitial changes stable since the last chest x-ray Blood work showed potassium was 5.4 bicarbonate 40 which has been chronically elevated White count 9.1 hemoglobin chronically low at 9.2 with significant left shift noted ABG reviewed which showed 7.40/62/70 on BiPAP Urine culture grew gram-negative [place] sputum cultures also growing gram-negative rods patient has had previous strep pneumo and staph aureus in the sputum Physical Exam General Appearance Alert, Oriented X3, Cooperative, Mild Distress Skin skin tear on right lateral calf with clean dry dressing HEENT PERRLA, EOMI, 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 Cardiovascular Regular Rate, Normal S1, Normal S2 Lungs b/l ronchii Abdomen Normal Bowel Sounds, Soft, No Tenderness Neurological Normal Speech, Strength at 5/5 X4 Ext, Normal Tone, Sensation Intact, Cranial Nerves 3-12 NL Extremities No Clubbing, No Cyanosis, No Edema IMPRESSION This is an elderly lady who has very severe COPD, significant bronchiectasis, recurrent bilateral pneumonitis with mucous plugging, worsening overall performance status, significant anxiety, on and off occasional chest discomfort, hyperlipidemia, hypertension, mild dementia and depression, diabetes and hypothyroidism * Resolving Acute hypoxemic and hypercarbic respiratory failure, due to end- stage lung disease with COPD and bronchiectasis with pseudomonas * Severe COPD with ongoing exacerbation * Mild interstitial lung disease on top of her chronic lung disease * Ongoing chest discomfort probably related to respiratory distress with mild ST -T changes rule out acute myocardial ischemia * Urinary tract infection * Mild hyperkalemia * Protein energy malnutrition * Chronic anemia * Previous thickened esophagus in the CAT scan we GERD * Previous anxiety and depression with the tracheobronchomalacia with ongoing wheezing * Worsening performance status * Right lateral calf ulcer RECOMMENDATION * Continue BiPAP prn and keep off when pt tolerates it * Can Change to po cipro and can add ceftin * Continue albuterol nebulizer therapy around the clock every 6 hours * Change to po prednisone 40 and taper in 8 days from am * Continue other medications * Continue to monitor potassium * Heparin subcutaneous * Continue proton pump inhibitor Prognosis guarded
[2016-07-06 00:11] VITALS: BP 112/62
--- NOTE | 2016-07-06 08:14 | PN- Housestaff ---
See Addendum Subjective Follow-up For: pseudomonas and staph aureus bronchitis Subjective: Pt seen this morning, reports feeling good. Received 1 unit of PRBC yesterday, am h/h still pending. BUN improves from 26 to 22, as she is eating and drinking more now. However noted increase in bicarb from 37 to 41. Her lungs was clear to ausculation. She was comfortably breathing on KS. Plan to discharge back to [facility] today. Danita from hospice will speak to family at [facility] on friday. Review of Systems Constitutional: Denies: chills, fever. EENTM: Denies: visual changes. Cardiovascular: Denies: chest pain. Respiratory: Denies: cough, short of breath. Gastrointestinal: Denies: abdominal pain. Objective Last 24 Hrs of Vital Signs/I&O Vital Signs Date Time Temp Pulse Resp B/P Pulse O2 O2 Flow FiO2 Ox Delivery Rate 07/06 0848 95 Nasal 2.0L Cannula 07/06 0011 98.1 79 20 112/62 97 07/06 0000 Nasal 2.0L Cannula 07/05 1830 95 Nasal 2.0L Cannula 07/05 1617 98.1 84 20 120/58 93 Nasal 2.0L Cannula 07/05 1600 97 Nasal 2.0L Cannula Intake & Output 07/06 1600 07/06 0800 07/06 0000 Intake Total 600 Output Total 100 Balance 500 Intake, Blood 350 Product Intake, Oral 250 Number 1 Bowel Movements Output, Urine 100 Physical Exam General Appearance: Alert, Cooperative, No Acute Distress Skin: bruises on both arms HEENT: Atraumatic Cardiovascular: Regular Rate, Normal S1, Normal S2, No Murmurs, Gallops, Rubs Lungs: Clear to Auscultation, Normal Air Movement Abdomen: Normal Bowel Sounds, Soft, No Tenderness Neurological: Normal Speech Extremities: No Edema Current Medications: Current Medications Sig/Teena Start time Last Medication Dose Route Stop Time Status Admin Acetaminophen 650 MG Q6P PRN 06/30 2044 AC PO Acetaminophen/ 1 TAB Q6P PRN 06/30 2044 AC Hydrocodone Bitart PO Albuterol Sulfate 3 ML TID 07/03 2199 AC 07/06 INH 0846 Budesonide/ 2 PUF BID 06/30 2199 AC 07/06 Formoterol Fumarate INH 0933 Cefuroxime Sodium 250 MG Q12 07/04 1000 AC 07/06 PO 0932 Ciprofloxacin 500 MG BID 07/03 1000 AC 07/06 PO 07/07 0959 0932 Citalopram 20 MG AT BEDTIME 06/30 2200 AC 07/05 Hydrobromide PO 2122 Docusate Sodium 100 MG BID 07/03 1000 AC 07/06 PO 0932 Dorzolamide HCl 2 GTT BID 06/30 2200 AC 07/06 OPH 0933 Gabapentin 200 MG BID 07/01 2200 AC 07/06 PO 0932 Insulin Aspart 0 TIDAC/HS 07/01 0800 AC 07/05 SC 2121 Lorazepam 0.5 MG 0900,1300 07/02 0900 AC 07/05 PO 07/09 0859 1335 Lorazepam 1 MG AT BEDTIME 07/01 2200 AC 07/05 PO 2121 Melatonin 9 MG QPM 07/01 2200 AC 07/05 PO 2122 Morphine Sulfate 1 MG Q6P PRN 07/01 1430 AC IV Omeprazole 40 MG DAILY AC 07/01 1530 AC 07/06 PO 0709 Oxycodone/ 2 TAB Q6P PRN 06/30 2045 AC Acetaminophen PO Polyethylene Glycol 17 GM DAILY 07/03 1000 AC 07/06 PO 0933 Prednisone 30 MG DAILY 07/07 1000 AC PO 07/09 1001 Prednisone 40 MG DAILY 07/04 1000 DC 07/06 PO 07/06 1001 0932 Senna 187 MG AT BEDTIME 07/03 2200 AC 07/05 PO 2122 Tiotropium [place] 1 PUF DAILY 07/01 1000 AC 07/06 INH 0932 Last 24 Hrs of Lab/[place] Results Last 24 Hrs of Labs/Mics: Laboratory Tests 07/06/16 0826: Anion Gap 2 L, Estimated GFR > 60, BUN/Creatinine Ratio 31.4 H, CBC w Diff Pending, WBC Pending, RBC Pending, Hgb Pending, Hct Pending, MCV Pending, MCH Pending, RDW Pending, Plt Count Pending, MPV Pending, PUBS MCHC Pending Assessment/Plan Assessment: 86-year-old lady with a history of COPD with 2 L home O2, ILD, tracheobronchomalacia, bronchiectasis, depression, resident of assisted living facility ([facility]) for CC of altered mental status, tactile fevers, hypoxia, increased dyspnea, cough productive of green sputum increased O2 requirement to 3.5L, + flu contact. She was admitted to telemetry for continuous pulse ox monitoring for acute on chronic hypercapneic and hypoxic respiratory failure. Her respiratory status improved with bipap, steroids, and ceftazidime (for suspected pseudomonas bronchitis/pna in the settings on bronchiectasis, subsequently changed to cipro 500 bid after [facility]RC&[facility] came back with pansensitive pseudomonas). Although her sputum grew MSSA, she has improved with ceftazidime, with resolution of leukocytosis, so we did not add another antibiotics to cover staph aureus initially (other than 1 dose of vancomycin received on admission). We believe that the primary bug causing her respiratory distress is psedomonas given the bronchiectasis, however it is not unreasonable to also treat the staph aureus with ceftin bid, as discussed with Dr. Jewell. She had chest pain during episodes of anxiety and respiratory distress with serial EKG and trops negative for ACS and chest pain has since resolved. She was noted to be bradycardic at night (around 50s), although asymptomatic. As her pulse ox is > 90s and the bradycardia is not causing symptoms, we subsequently discontinued telemetry and pulse ox monitoring. Problem list: # Acute on chronic hypercarbic and hypoxic respiratory failure most likely due to pseudomonas and staph aureus bronchitis (hx of bronchiectasis) and COPD exacerbation # Mild Hyperkalemia on admission (improved) # Acute on chronic anemia (dropping h/h) # Protein calorie malnutrition, poor po intake # Constipation (resolved) # Acute substernal chest pain in the settings of respiratory distress (resolved) # AMS (resolved) # Asymptomatic urinary tract infection # Bradycardia # Right calf ulcer in dry sterile dressing # Acute on chronic hypercarbic and hypoxic respiratory failure most likely due to pseudomonas and staph aureus bronchitis (hx of bronchiectasis) and COPD exacerbation - CXR: Hyperinflated lung field secondary to COPD emphysematous changes somewhat nodular interstitial changes on the left base stable since 06/06/2015. - Leukocytosis (11.9) with left shift, no bands , improved to 6.9 - ABG admission : 7.36/73H/58L/40H - ABG on BIPAP : 7.40/62H/70L/38H - AMS on admission, now improved * blood cultures NGTD, urine strep and Legionella antigen negative, sputum culture (PANSENSITIVE PSEUDOMONAS and MSSA) * DC'd vanco after 1 dose. Ceftazidime changed to cipro 500 bid on day # 3 to complete total 10 days of abx. Today day # 6 * Ceftin 250 bid started on day # 4 to cover staph aureus * Prednisone 40 mg starting 3/2, taper 10 mg q 3 days, 30 mg starting 3/ * Discontinued mucomyst after 2 days * Diamox X 1 given 07/01, 07/02. Monitor bicarb on daily labs * Continue on nocturnal BiPAP as needed * Continue home Ativan 1 mg at bedtime, 0.5 mg at 9am and 1pm. HOLD IF DROWSY. * Continuous pulse ox discontinued (satting 90s,now on home 2L o2 via NC) * TRC evaluation, total pulmonary toilet * Pulm consult with Dr. Jewell appreciated * Continue albuterol. Hold spiriva. * Ambulate pt as tolerated, physical therapy, OT. # Mild Hyperkalemia on admission (improved) - On admission 5.4, down to 4.4, then 3.8, given 1X 40 Kdur, went up to 4.7 * Monitor K # Acute on chronic anemia - H/H continues to drop from 9.5 (on admission) to 7.8, Transfuse 1 unit on 3 , improved to 9.9 - Hx of positive stool guiaiac * Monitor h/h * Stool guaiac positive. PCP and Valdo Quach not aware when her last colonoscopy was. Pt has hx of rectal cancer. Given current respiratory status, EGD/ colonoscopy will not be pursued as discussed with her daughter * sc heparin discontinued 07/03 # Protein calorie malnutrition, poor po intake - BUN increasing to 33 most likely due to poor po intake, improved to 22 with more po intake * Encourage po intake * Monitor BUN # Constipation (resolved, had 2 BM on 07/04 after milk mag and supp) - no documented BM since admission * Continue miralax,docusate,senna # Acute substernal chest pain in the settings of respiratory distress could be suggestive of demand ischemia (resolved) - Jun 2016 echocardiogram: Normal left ventricular ejection fraction visually estimated at >65. Abnormal relaxation filling pattern of the left ventricle for age (stage 1 diastolic dysfunction). - Serial trops and EKG X 3 negative for ACS * Follow up Dr. Pastrana (cardiology) recommendation * Nitropaste 0.5 X 1 given * 1mg morphine IV q6prn difficulty breathing # Asymptomatic bradycardia at night - No associated chest discomfort, heart rate in the morning 60s-70s * Discontinued tele monitoring as bradycardia occurs at night and asymptomatic. I have also told Dr. Pastrana regarding this # UTI on UA but pt asymptomatic * Urine culture (pansensitive pseudomonas) # Right calf ulcer in dry sterile dressing * Wound consult appreciated * f/u outpatient wound care # DM - hba1c 5.3 * accucheck and novolog ss tidac/qhs # Continue * Celexa * Ativan and gabapentin * Omeprazole 40 mg daily Diet: CC2 puree DVT ppx: SC heparin discontinued due to dropping h/h. ALPs not used due to lower extremity pain DNR/DNI Labs: BEP for co2 retention, CBC for dropping h/h due to ABLA Consults: pulm, wound, cardio (off) Problem List: 1. Pseudomonas pneumonia Pain Ratin Pain Location: none Pain Goal: Remain pain free Pain Plan: none Tomorrow's Labs & Rationales: bep for co2 retention (bicarb level) cbc for abla (gi loss) Consulting Request: Consulting Specialty: Pulmonary Disease
[2016-07-06 09:35] LABS: ABSOLUTE BASOPHIL COUNT 0 /CUMM (0.0-0.2); ABSOLUTE EOSINOPHIL COUNT 0.1 /CUMM (0.0-0.7); ABSOLUTE GRANULOCYTE CT 5.8 /CUMM (1.4-6.5); ABSOLUTE LYMPH COUNT 0.5 /CUMM (1.2-3.4); ABSOLUTE MONOCYTE COUNT 0.7 /CUMM (0.10-0.60); BASOPHIL % 0.3 % (0.0-2.0); EOSINOPHIL % 1.8 % (0-5); GRANULOCYTE % 81.4 % (42.2-75.2); MEAN CORPUSCULAR HGB 31.6 PG (27.0-31.0); MEAN CORPUSCULAR HGB CONC 33.9 G/DL (33.0-37.0); MEAN CORPUSCULAR VOLUME 93.2 FL (81.0-99.0); MEAN PLATELET VOLUME 6.7 FL (7.4-10.4); PLATELET COUNT 185 /CUMM (130-400); WHITE BLOOD CELL COUNT 7.1 /CUMM (4.8-10.8)
[2016-07-06 11:12] LABS: HEMATOCRIT 29.3 % (37-47); RED BLOOD CELL CT 3.14 /CUMM (4.20-5.40)
--- NOTE | 2016-07-06 12:01 | NUR ---
Discussed patient with nursing: per nursing pt will not require therapy as she is most likely going to be DC today.
[2016-07-06 14:58] VITALS: BP 112/62
[2016-07-06 16:09] VITALS: BP 143/62
== END 2016-07-06 16:34 | DRG 189 ==
LOC: ENRESERVTM → ENRESERVDT → ERH 17:14 → ERHI 18:52 → 1NO 18:52 → ENPENDDIS 18:52 → 1NO 20:09
PROVIDERS: Emergency Medicine; Internal Medicine; Radiology Diagnostic Radiology; ADMIT Internal Medicine
PROC: 5A09357 Assistance with Respiratory Ventilation, Less than 24 Consecutive Hours, Continuous Positive Airway Pressure (ICD-10-PCS; 2016-06-30)
PROC: 30233N1 Transfusion of Nonautologous Red Blood Cells into Peripheral Vein, Percutaneous Approach (ICD-10-PCS; principal; 2016-07-05)
DX: J96.22 Acute and chronic respiratory failure with hypercapnia (principal); J69.0 Pneumonitis due to inhalation of food and vomit; J47.0 Bronchiectasis with acute lower respiratory infection; J84.9 Interstitial pulmonary disease, unspecified; E46 Unspecified protein-calorie malnutrition; J96.21 Acute and chronic respiratory failure with hypoxia; R64 Cachexia; J44.1 Chronic obstructive pulmonary disease with (acute) exacerbation; E11.9 Type 2 diabetes mellitus without complications; D64.9 Anemia, unspecified; N39.0 Urinary tract infection, site not specified; L97.819 Non-pressure chronic ulcer of other part of right lower leg with unspecified severity; J20.8 Acute bronchitis due to other specified organisms; L97.829 Non-pressure chronic ulcer of other part of left lower leg with unspecified severity; J44.9 Chronic obstructive pulmonary disease, unspecified; Z99.81 Dependence on supplemental oxygen; Z68.21 Body mass index [BMI] 21.0-21.9, adult; F32.9 Major depressive disorder, single episode, unspecified; K21.9 Gastro-esophageal reflux disease without esophagitis; E03.9 Hypothyroidism, unspecified; Z85.038 Personal history of other malignant neoplasm of large intestine; Z87.891 Personal history of nicotine dependence
CPT/HCPCS: 1NSP; 87184; 36415; 81001; 82436; 86920; 87040; 87070; 87086; 87147; 87449; 87450; 87804; 87804-59; 93005; 93010; 93306; 96375; 97110-GO; 97116-GO; 97161-GP; 97165-GO; 97530-GO; J0696; J0713; J1120; J1644; J2920; J2930; J3370; J3490; J7060; J7512; J7608; P9016